=== PATIENT | male | born 1975 | race Caucasian/White ===

== ENCOUNTER 2022-05-14 23:42 | Inpatient (IN) ==
--- NOTE | 2022-05-14 23:59 | Emergency Department Note ---
History of Present Illness General Chief complaint: Confusion Stated complaint: AMS Time Seen by Provider: 05/14/22 23:44 History of Present Illness 47-year-old male presents emergency department reportedly from the [facility] he was there for her schizophrenia and agitation under 302. Prior to that he was transferred from [facility] where he had a cerebral infarction due to a thrombosis of the left middle cerebral artery on April 29. Patient was treated at the time with subcu heparin and was then subsequently transferred to the [facility] after making threats to kill himself and below the hospital. The [facility] has been taking care of this patient for the past 3 days they state they cannot handle and now he has increased agitation they do not understand him at times. There were no other complaints. Reportedly the symptoms worsen 3 hours prior to arrival. Patient is a very poor historian to his current presentation and reportedly he is transitioning from male to female. Home Medications Medication Instructions Recorded Confirmed Type acetaminophen 325 mg tablet 650 mg PO Q4H PRN Pain 05/15/22 05/15/22 History (Tylenol) atorvastatin 20 mg tablet 20 mg PO HS 05/15/22 05/15/22 History diphenhydramine HCl 50 mg capsule 50 mg PO Q6H PRN Itching 05/15/22 05/15/22 History estradiol 0.1 mg/24 hr semiweekly 0.1 mg transdermal 2XWK 05/15/22 05/15/22 History transdermal patch finasteride 1 mg tablet 1 mg PO DAILY 05/15/22 05/15/22 History hydrocortisone 1 % topical cream 1 applic topical TID 05/15/22 05/15/22 History linaclotide 290 mcg capsule 290 mcg PO DAILY 05/15/22 05/15/22 History (Linzess) linaclotide 72 mcg capsule 72 mcg PO DAILY 05/15/22 05/15/22 History (Linzess) mupirocin 2 % topical ointment 1 applic topical BID 05/15/22 05/15/22 History quetiapine 50 mg tablet (Seroquel) 50 mg PO DIRECTED PRN Agitation 05/15/22 05/15/22 History spironolactone 100 mg tablet 300 mg PO HS 05/15/22 05/15/22 History venlafaxine 150 mg 150 mg PO QAM 05/15/22 05/15/22 History capsule,extended release 24 hr (Effexor XR) Allergies Allergy/AdvReac Type Severity Reaction Status Date / Time cat dander Allergy Unknown ON MED LIST Verified 05/15/22 00:46 pollen extracts Allergy Unknown ON MED LIST Verified 05/15/22 00:46 Past Med/Surg History Social History Smoking Status: Unknown if ever smoked Feels Safe at Home: Yes Immunizations: Past medical history includes acute CVA, aphasia, cerebral infarction due to thrombosis of left middle cerebral artery, hyponatremia, schizoaffective disorder, suicidal ideation, long-term estrogen therapy, hypertension, hyperlipidemia; social history unknown whether the patient drinks alcohol, patient is reportedly transitioning from male to female Review of Systems Unobtainable due to cognitive status Physical Exam Vital Signs Vital Signs - 24 hr 05/14/22 23:38 05/14/22 23:55 05/15/22 00:05 Temperature 37.7 C Temperature Source Oral Pulse Rate 91 Pulse Rate from SpO2 Sensor Respiratory Rate 16 Respiratory Effort / Characteristics Non-Labored Non-Labored Respiratory Depth Normal Normal Blood Pressure Blood Pressure Mean Pulse Oximetry 97 98 Oxygen Delivery Method Room Air Sepsis Recent Fever Within 48 Hours No Sepsis New/Unexplained Change in Mental Status No Sepsis Action Taken by Nursing No Action Required 05/14/22 23:50 05/14/22 23:50 05/15/22 00:00 Temperature Temperature Source Pulse Rate 96 H 91 H Pulse Rate from SpO2 Sensor 92 H Respiratory Rate 19 13 Respiratory Effort / Characteristics Respiratory Depth Blood Pressure 158/123 H Blood Pressure Mean 134 Pulse Oximetry 95 Oxygen Delivery Method Sepsis Recent Fever Within 48 Hours Sepsis New/Unexplained Change in Mental Status Sepsis Action Taken by Nursing 05/15/22 00:10 05/15/22 00:29 05/15/22 00:29 Temperature Temperature Source Pulse Rate 93 H 96 H Pulse Rate from SpO2 Sensor 93 H 97 H Respiratory Rate 21 23 Respiratory Effort / Characteristics Respiratory Depth Blood Pressure 168/107 H Blood Pressure Mean 127 Pulse Oximetry 97 99 Oxygen Delivery Method Sepsis Recent Fever Within 48 Hours Sepsis New/Unexplained Change in Mental Status Sepsis Action Taken by Nursing 05/15/22 00:30 05/15/22 00:40 05/15/22 00:50 Temperature Temperature Source Pulse Rate 96 H 91 H 100 H Pulse Rate from SpO2 Sensor 96 H 93 H Respiratory Rate 21 14 15 Respiratory Effort / Characteristics Respiratory Depth Blood Pressure Blood Pressure Mean Pulse Oximetry 98 97 Oxygen Delivery Method Sepsis Recent Fever Within 48 Hours Sepsis New/Unexplained Change in Mental Status Sepsis Action Taken by Nursing 05/15/22 01:00 05/15/22 01:10 05/15/22 01:20 Temperature Temperature Source Pulse Rate 95 H 92 H 88 Pulse Rate from SpO2 Sensor Respiratory Rate 19 15 19 Respiratory Effort / Characteristics Respiratory Depth Blood Pressure Blood Pressure Mean Pulse Oximetry Oxygen Delivery Method Sepsis Recent Fever Within 48 Hours Sepsis New/Unexplained Change in Mental Status Sepsis Action Taken by Nursing 05/15/22 01:30 05/15/22 01:40 05/15/22 01:50 Temperature Temperature Source Pulse Rate 95 H 93 H 90 Pulse Rate from SpO2 Sensor Respiratory Rate 16 20 17 Respiratory Effort / Characteristics Respiratory Depth Blood Pressure Blood Pressure Mean Pulse Oximetry Oxygen Delivery Method Sepsis Recent Fever Within 48 Hours Sepsis New/Unexplained Change in Mental Status Sepsis Action Taken by Nursing 05/15/22 02:00 05/15/22 02:10 05/15/22 02:20 Temperature Temperature Source Pulse Rate 90 90 91 H Pulse Rate from SpO2 Sensor Respiratory Rate 17 17 20 Respiratory Effort / Characteristics Respiratory Depth Blood Pressure Blood Pressure Mean Pulse Oximetry Oxygen Delivery Method Sepsis Recent Fever Within 48 Hours Sepsis New/Unexplained Change in Mental Status Sepsis Action Taken by Nursing 05/15/22 02:30 05/15/22 02:40 05/15/22 02:50 Temperature Temperature Source Pulse Rate 85 88 87 Pulse Rate from SpO2 Sensor Respiratory Rate 14 19 19 Respiratory Effort / Characteristics Respiratory Depth Blood Pressure Blood Pressure Mean Pulse Oximetry Oxygen Delivery Method Sepsis Recent Fever Within 48 Hours Sepsis New/Unexplained Change in Mental Status Sepsis Action Taken by Nursing 05/15/22 03:00 05/15/22 03:10 05/15/22 03:13 Temperature Temperature Source Pulse Rate 88 89 95 H Pulse Rate from SpO2 Sensor Respiratory Rate 15 16 23 Respiratory Effort / Characteristics Respiratory Depth Blood Pressure Blood Pressure Mean Pulse Oximetry Oxygen Delivery Method Sepsis Recent Fever Within 48 Hours Sepsis New/Unexplained Change in Mental Status Sepsis Action Taken by Nursing 05/15/22 03:13 Temperature Temperature Source Pulse Rate Pulse Rate from SpO2 Sensor Respiratory Rate Respiratory Effort / Characteristics Respiratory Depth Blood Pressure 126/93 Blood Pressure Mean 104 Pulse Oximetry Oxygen Delivery Method Sepsis Recent Fever Within 48 Hours Sepsis New/Unexplained Change in Mental Status Sepsis Action Taken by Nursing GENERAL: Patient is awake alert in no acute distress patient is resting comfortably and showing no signs of anxiety EYES: The conjunctivae are clear. The pupils are round and reactive. EARS, NOSE, MOUTH AND THROAT: The nose is without any evidence of any deformity. Mucous membranes are moist. Tongue is midline. NECK: The neck is nontender and supple. RESPIRATORY: Normal respiratory effort is noted there is no evidence of wheezing rhonchi or rales CARDIOVASCULAR: Regular rate and rhythm noted there no murmurs rubs or gallops normal S1 normal S2. GASTROINTESTINAL: The abdomen is soft. Abdomen is nontender. PELVIS: The Pelvis is stable. No tenderness to palpation is noted. BACK: No midline tenderness or or step-off noted range of motion in flexion extension as well as rotation no signs of muscle spasm noted MUSCULOSKELETAL/EXTREMITIES: There is no evidence of gross deformity full range of motion is noted in the hips and shoulders. SKIN: Patient has an erythematous rash on the upper extremities. Patient has ecchymotic rash in the low quadrants of the abdomen. NEUROLOGIC: Patient is awake alert and oriented x2. Patient does have dysarthria and sometimes is difficult to understand and mumbles. PSYCH; patient is calm, cooperative initially on my exam Course Reevaluation(s) Reevaluation #1: Patient remained in stable condition in no distress. Patient does answer questions however does have some expressive aphasia at times and some dysarthria. The case was discussed with the [facility] hospitalist for admission Time: 02:44 Administered Medications Discontinued Medications Diphenhydramine HCl (Diphenhydramine Capsule 25 Mg Cap) 25 mg PO NOW ONE Stop: 05/15/22 01:01 Last Admin: 05/15/22 01:10 Dose: 25 mg Documented By: SPEEDY Spironolactone (Spironolactone 100 Mg Tab) 100 mg PO NOW STA Stop: 05/15/22 02:33 Last Admin: 05/15/22 02:45 Dose: 100 mg Medical Decision Making Medical Records Attestation: I reviewed the patient's medical records. Home Medications Current Medication List: was personally reviewed by me Laboratory Data Attestation: I reviewed the patient's lab results. Result diagrams: 05/14/22 23:53 05/15/22 01:21 Lab Results 05/14/22 05/14/22 05/14/22 Range/Units 23:53 23:53 23:53 WBC 9.58 (4.8-10.8) K/ul RBC 5.31 (4.63-6.08) M/uL Hgb 17.5 (14.0-18.0) g/dl Hct 48.6 (40.1-51.0) % MCV 91.5 (80.0-100.0) fL MCH 33.0 (25.0-34.0) pg MCHC 36.0 (32.0-36.0) g/dL RDW Std Deviation 40.1 (36.4-46.3) fL RDW Coeff of Grazyna 11.9 (11.5-14.5) % Plt Count 218 (130-400) K/uL MPV 11.9 (9.4-12.4) fL Immature Gran % (Auto) 0.6 % Neut % (Auto) 56.9 % Lymph % (Auto) 28.9 % [place] % (Auto) 10.2 % Eos % (Auto) 2.4 % Baso % (Auto) 1.0 % Neut # (Auto) 5.44 (1.4-6.5) K/uL Lymph # (Auto) 2.77 (1.2-3.4) K/uL [place] # (Auto) 0.98 H (0.24-0.82) K/uL Eos # (Auto) 0.23 (0-0.50) K/uL Baso # (Auto) 0.10 (0-0.2) K/uL Immature Gran # (Auto) 0.06 H (0.00-0.02) K/uL PT Cancelled INR Cancelled APTT Cancelled PTT Ratio Cancelled Sodium Cancelled Potassium Cancelled Chloride Cancelled Carbon Dioxide Cancelled Anion Gap Cancelled BUN Cancelled Creatinine Cancelled Est Cr Clr Drug Dosing Cancelled Est GFR ( Amer) Cancelled Est GFR (Non-Af Amer) Cancelled BUN/Creatinine Ratio Cancelled Glucose Cancelled Calcium Cancelled Magnesium Cancelled Total Bilirubin Cancelled AST Cancelled ALT Cancelled Alkaline Phosphatase Cancelled Troponin I High Sens Cancelled Total Protein Cancelled Albumin Cancelled Globulin Cancelled Albumin/Globulin Ratio Cancelled Urine Opiates Screen (Neg) Ur Methadone, Qual (Neg) Urine Barbiturates (Neg) Ur Phencyclidine (PCP) (Neg) U Amphetamin/Meth Scrn (Neg) MDMA (Ecstasy) Screen (Neg) U Benzodiazepines Scrn (Neg) Ur Cocaine Metabolite (Neg) U Marijuana (THC) Screen (Neg) SARS-CoV-2, RNA, NAAT (NEGATIVE) 05/15/22 05/15/22 05/15/22 Range/Units 00:35 01:21 01:21 WBC (4.8-10.8) K/ul RBC (4.63-6.08) M/uL Hgb (14.0-18.0) g/dl Hct (40.1-51.0) % MCV (80.0-100.0) fL MCH (25.0-34.0) pg MCHC (32.0-36.0) g/dL RDW Std Deviation (36.4-46.3) fL RDW Coeff of Grazyna (11.5-14.5) % Plt Count (130-400) K/uL MPV (9.4-12.4) fL Immature Gran % (Auto) % Neut % (Auto) % Lymph % (Auto) % [place] % (Auto) % Eos % (Auto) % Baso % (Auto) % Neut # (Auto) (1.4-6.5) K/uL Lymph # (Auto) (1.2-3.4) K/uL [place] # (Auto) (0.24-0.82) K/uL Eos # (Auto) (0-0.50) K/uL Baso # (Auto) (0-0.2) K/uL Immature Gran # (Auto) (0.00-0.02) K/uL PT Cancelled INR Cancelled APTT Cancelled PTT Ratio Cancelled Sodium 131 L Potassium 3.8 Chloride 98 Carbon Dioxide 24 Anion Gap 9 BUN 14 Creatinine 0.71 Est Cr Clr Drug Dosing Not Reportable Est GFR ( Amer) 131.3 Est GFR (Non-Af Amer) 113.3 BUN/Creatinine Ratio 19.7 Glucose 106 H Calcium 9.3 Magnesium 2.1 Total Bilirubin 1.1 H AST 27 ALT 41 Alkaline Phosphatase 65 Troponin I High Sens 3.8 Total Protein 7.2 Albumin 4.4 Globulin 2.8 Albumin/Globulin Ratio 1.6 Urine Opiates Screen (Neg) Ur Methadone, Qual (Neg) Urine Barbiturates (Neg) Ur Phencyclidine (PCP) (Neg) U Amphetamin/Meth Scrn (Neg) MDMA (Ecstasy) Screen (Neg) U Benzodiazepines Scrn (Neg) Ur Cocaine Metabolite (Neg) U Marijuana (THC) Screen (Neg) SARS-CoV-2, RNA, NAAT NEGATIVE (NEGATIVE) 05/15/22 05/15/22 Range/Units 01:40 02:23 WBC (4.8-10.8) K/ul RBC (4.63-6.08) M/uL Hgb (14.0-18.0) g/dl Hct (40.1-51.0) % MCV (80.0-100.0) fL MCH (25.0-34.0) pg MCHC (32.0-36.0) g/dL RDW Std Deviation (36.4-46.3) fL RDW Coeff of Grazyna (11.5-14.5) % Plt Count (130-400) K/uL MPV (9.4-12.4) fL Immature Gran % (Auto) % Neut % (Auto) % Lymph % (Auto) % [place] % (Auto) % Eos % (Auto) % Baso % (Auto) % Neut # (Auto) (1.4-6.5) K/uL Lymph # (Auto) (1.2-3.4) K/uL [place] # (Auto) (0.24-0.82) K/uL Eos # (Auto) (0-0.50) K/uL Baso # (Auto) (0-0.2) K/uL Immature Gran # (Auto) (0.00-0.02) K/uL PT 11.7 INR 1.1 APTT 28.3 PTT Ratio 1.0 Sodium Potassium Chloride Carbon Dioxide Anion Gap BUN Creatinine Est Cr Clr Drug Dosing Est GFR ( Amer) Est GFR (Non-Af Amer) BUN/Creatinine Ratio Glucose Calcium Magnesium Total Bilirubin AST ALT Alkaline Phosphatase Troponin I High Sens Total Protein Albumin Globulin Albumin/Globulin Ratio Urine Opiates Screen Neg (Neg) Ur Methadone, Qual Neg (Neg) Urine Barbiturates Neg (Neg) Ur Phencyclidine (PCP) Neg (Neg) U Amphetamin/Meth Scrn Neg (Neg) MDMA (Ecstasy) Screen Neg (Neg) U Benzodiazepines Scrn Neg (Neg) Ur Cocaine Metabolite Neg (Neg) U Marijuana (THC) Screen Pos H (Neg) SARS-CoV-2, RNA, NAAT (NEGATIVE) Imaging Data Attestation: I personally reviewed and interpreted this imaging study as follows: My Impression: Chest x-ray interpreted by me negative for infiltrate ECG Data Attestation: I personally reviewed and interpreted this ECG as follows: Additional Comments: EKG interpreted by me normal sinus rhythm rate of 87 normal intervals normal axis no obvious ST segment elevation or depression MDM Narrative Medical decision making differential diagnosis post stroke, aphasia, metabolic derangement, dehydration, worsening aphasia, psychiatric disorder. Plan is to check labs, EKG, CT, review prior records Patient underwent evaluation for strokelike symptoms confusion, agitation. It appears after reading the patient's medical records that all of this seems to be at baseline currently after the patient had a stroke in April. [facility]. Patient is not a tPA candidate or any intervention for an acute stroke at this time Impression & Plan Agitation, Dysarthria, Schizoaffective disorder Discharge Plan Visit Data Chief Complaint: Confusion Stated Complaint: [facility] ED Provider: Alon Chang Discharge Problem: Agitation, Dysarthria, Schizoaffective disorder Patient Disposition: Being Evaluated by Hospitalist Forms Stand Alone Forms: My [facility] Prescriptions Prescriptions: No Action acetaminophen [Tylenol] 325 mg Tablet 650 mg PO Q4H PRN (Reason: Pain) atorvastatin 20 mg Tablet 20 mg PO HS diphenhydramine HCl [Benadryl] 50 mg Capsule 50 mg PO Q6H PRN (Reason: Itching) spironolactone 100 mg Tablet 300 mg PO HS estradiol 0.1 mg/24 hr Patch Semiweekly 0.1 mg transdermal 2XWK Rx Instructions: APPLY ON MONDAY & THURSDAYS. venlafaxine [Effexor XR] 150 mg Capsule,Extended Release 24hr 150 mg PO QAM hydrocortisone 1 % Cream 1 applic TOPICAL TID mupirocin 2 % Ointment 1 applic TOPICAL BID finasteride 1 mg Tablet 1 mg PO DAILY quetiapine [Seroquel] 50 mg Tablet 50 mg PO DIRECTED MDD 4 DOSES PRN (Reason: Agitation) Rx Instructions: EVERY 30 MINUTES FOR AGITATION, MAX 4 DOSES. Linzess 290 mcg Capsule 290 mcg PO DAILY Linzess 72 mcg Capsule 72 mcg PO DAILY Rx Instructions: THIS ORDER WRITTEN "GIVE 390 MCG USE 5.41 OF 72 MCG" DO NOT UNDERSTAND THIS ORDER. Referrals Referrals: PCP,NO [Primary Care Provider] -
[2022-05-15 00:13] LABS: Eosinophils # (auto) 0.23 K/uL (0-0.50); Eosinophils % (auto) 2.4 %; Hematocrit (blood only) 48.6 % (40.1-51.0); Hemoglobin 17.5 g/dl (14.0-18.0); Immature Granulocytes # (auto) 0.06 K/uL (0.00-0.02); Immature Granulocytes % (auto) 0.6 %; Lymphocytes # (auto) 2.77 K/uL (1.2-3.4); Lymphocytes % (auto) 28.9 %; Mean Corpuscular Volume 91.5 fL (80.0-100.0); Mean Platelet Volume 11.9 fL (9.4-12.4); Monocytes # (auto) 0.98 K/uL (0.24-0.82); Monocytes % (auto) 10.2 %; Neutrophils # (auto) 5.44 K/uL (1.4-6.5); Neutrophils % (auto) 56.9 %; Platelet Count 218 K/uL (130-400); RDW Coefficient of Variation 11.9 % (11.5-14.5); RDW Standard Deviation 40.1 fL (36.4-46.3); Red Blood Count 5.31 M/uL (4.63-6.08); White Blood Count 9.58 K/ul (4.8-10.8)
[2022-05-15] MEDS ORDERED: diphenhydrAMINE Capsule 25 MG CAP PO ONE (01:00)
[2022-05-15 02:00] LABS: Troponin I High Sensitivity 3.8 pg/ml (0-20)
[2022-05-15 02:01] LABS: Alanine Aminotransferase 41 U/L (7-52); Albumin Globulin Ratio 1.6 (0.9-2); Albumin Level 4.4 gm/dl (3.4-5.0); Alkaline Phosphatase 65 U/L (34-104); Anion Gap 9 (3-11); Aspartate Aminotransferase 27 U/L (13-39); BUN Creatinine Ratio 19.7 (10-20); Bilirubin,Total 1.1 mg/dl (0.2-1.0); Blood Urea Nitrogen 14 mg/dl (6-23); Calcium 9.3 mg/dl (8.5-10.1); Carbon Dioxide 24 mmol/L (21-32); Chloride 98 mmol/L (98-107); Est GFR (African American) 131.3 ml/min; Est GFR (Non-African American) 113.3 ml/min; Globulin 2.8 gm/dl (2.5-4.0); Glucose 106 mg/dl (70-99(Fasting)); Magnesium 2.1 mg/dl (1.7-2.4); Potassium 3.8 mmol/L (3.5-5.1); Sodium 131 mmol/L (136-145); Total Protein 7.2 gm/dl (6.0-8.3)
[2022-05-15] MEDS ORDERED: SPIRONOLACTONE 100 MG TAB PO STA (02:32)
--- NOTE | 2022-05-15 02:34 | History & Physical Report ---
Date of Service May 15, 2022 Assessment & Plan (1) Encephalopathy: Plan: Secondary to hyponatremia, mild clinical dehydration with note of ketonuria Pruritic rash involving patient's extremities and trunk likely scabies infestation hx recurrent ischemic CVA (04/2022)/hx ICH (03/2022 imaging) hypertension, elevated upon arrival at the ER hyperlipidemia on statin Rx hx HCV unknown status hx schizoaffective disorder/anxiety/mood disorder, unknown status gender dysphoria (male to female transgender person), patient transdermal estrogen resumed at the [facility] history IVDU prediabetes, hemoglobin A1c of 5.8 hemoglobin A1c of 5.8 last April 2022 ongoing tobacco abuse OBS Medical telemetry IVF Hold spironolactone Amlodipine for BP control DC estradiol patch given recent stroke Isolation precautions, Permethrin 1 dose for possible scabies infestation. Return to [facility] once mentation back to baseline Nicotine patch as needed DVT prophylaxis per Lovenox subcu Full code Attempted to contact patient's mother (Ms. Angelia Porter, contact #[phone]) to obtain additional history and to discuss plan of care. No answer. Text document was generated using [employer] voice recognition software. It may contain grammatical or spelling errors. Kindly contact undersigned for clarification of any documentation item in question. History of Present Illness Chief Complaint: Confusion as per records Primary Care Provider: NO PCP History obtained from patient, [facility] facility staff , and records. Medical history significant for recurrent ischemic CVA (04/2022), hx ICH (03/2022 imaging), hypertension, hyperlipidemia, HCV, schizoaffective disorder, anxiety/mood disorder, gender dysphoria (male to female transgender person), history IVDU, VENKATESH, prediabetes, ongoing tobacco abuse. Patient confined at [facility] last April 29, 2022 for left MCA stroke on MRI presenting as dysarthria, receptive and expressive aphasia. Patient had to be intubated to facilitate MRI as per note. Patient signed out AGAINST MEDICAL ADVICE today after admission but subsequently readmitted after being brought back to the ER by law enforcement with 302 petition due to patient suicidality. Neurology recommended aspirin and statin Rx for secondary stroke prevention. Hyper coag work-up and GABY recommended for recurrent stroke work-up. Patient's transdermal estrogen to be discontinued temporarily as per recommendations. Amlodipine added to patient's spironolactone later on for BP control. Patient with periods of aggression and agitation during confinement. Patient unable to hold rational conversation as per documentation. Patient subsequently cleared for transfer to psychiatric facility. Patient not on suicidal precautions as a voluntary admission (201) upon admission at the local [facility] last May 10, 2022. Patient noted to have a pruritic rash on both elbows on admission as per staff account. Patient started on topical steroids. Yesterday, patient noted by staff to be more confused than usual. Patient unable to answer questions regarding chest pain, shortness of breath, headache, abdominal pain symptoms. Patient sent to ER for evaluation. Medical History as above Surgical History : Could not be obtained Family History : Stroke Personal/Social history : 1/4 pack daily, Occasional EtOH intake Allergies Allergy/AdvReac Type Severity Reaction Status Date / Time cat dander Allergy Unknown ON MED LIST Verified 05/15/22 00:46 pollen extracts Allergy Unknown ON MED LIST Verified 05/15/22 00:46 Home Medications Medication Instructions Recorded Confirmed Type acetaminophen 325 mg tablet 650 mg PO Q4H PRN Pain 05/15/22 05/15/22 History (Tylenol) atorvastatin 20 mg tablet 20 mg PO HS 05/15/22 05/15/22 History diphenhydramine HCl 50 mg capsule 50 mg PO Q6H PRN Itching 05/15/22 05/15/22 History estradiol 0.1 mg/24 hr semiweekly 0.1 mg transdermal 2XWK 05/15/22 05/15/22 History transdermal patch finasteride 1 mg tablet 1 mg PO DAILY 05/15/22 05/15/22 History hydrocortisone 1 % topical cream 1 applic topical TID 05/15/22 05/15/22 History linaclotide 290 mcg capsule 290 mcg PO DAILY 05/15/22 05/15/22 History (Linzess) linaclotide 72 mcg capsule 72 mcg PO DAILY 05/15/22 05/15/22 History (Linzess) mupirocin 2 % topical ointment 1 applic topical BID 05/15/22 05/15/22 History quetiapine 50 mg tablet (Seroquel) 50 mg PO DIRECTED PRN Agitation 05/15/22 05/15/22 History spironolactone 100 mg tablet 300 mg PO HS 05/15/22 05/15/22 History venlafaxine 150 mg 150 mg PO QAM 05/15/22 05/15/22 History capsule,extended release 24 hr (Effexor XR) Past Med/Surg History Social History Smoking Status: Unknown if ever smoked Preferred Language: Belarusian Communication Ability: Impaired Communication Ability Comment: Expressive aphasia [place] Required: No Current Living Situation Comment: Unable to obtain- AMS Feels Safe at Home: Yes Safety Concerns: Feels Safe At This Time Gender Identity: Female Assistive Devices: None Review of Systems Review of Systems: Could not be reliably obtained secondary to disorientation Physical Exam Physical Exam: GENERAL: Comfortable, disoriented, babbling, aphasic, obese, no respiratory distress SKIN: Erythematous rash, excoriations over extremities, normal color, warm HEENT: [place] palpebral conjunctivae, no ptosis, dry buccal mucosa NECK : Supple, short neck, no tenderness CHEST : CTA, no tenderness HEART : RRR, no obvious murmurs ABDOMEN: Some distention, nontender EXTREMITIES : Minimal LE swelling, no LE tenderness, no other conspicuous deformities noted NEUROLOGIC : Incoherent, disoriented, no facial asymmetry, gait and stance not assessed Results & Data Results & Data ([facility]) Vital Signs (Past 12 Hours) Vital Signs Temp Pulse Resp BP Pulse Ox O2 Del Method 05/15/22 02:10 90 17 05/15/22 02:00 90 17 05/15/22 01:50 90 17 05/15/22 01:40 93 H 20 05/15/22 01:30 95 H 16 05/15/22 01:20 88 19 05/15/22 01:10 92 H 15 05/15/22 01:00 95 H 19 05/15/22 00:50 100 H 15 05/15/22 00:40 91 H 14 97 05/15/22 00:30 96 H 21 98 05/15/22 00:29 96 H 23 99 05/15/22 00:29 168/107 H 05/15/22 00:10 93 H 21 97 05/15/22 00:00 91 H 13 95 05/14/22 23:50 96 H 19 05/14/22 23:50 158/123 H 05/15/22 00:05 98 Room Air 05/14/22 23:38 37.7 C 91 16 97 Laboratory Results Laboratory Results WBC 9.58 K/ul (4.8-10.8) 05/14/22 23:53 RBC 5.31 M/uL (4.63-6.08) 05/14/22 23:53 Hgb 17.5 g/dl (14.0-18.0) 05/14/22 23:53 Hct 48.6 % (40.1-51.0) 05/14/22 23:53 MCV 91.5 fL (80.0-100.0) 05/14/22 23:53 MCH 33.0 pg (25.0-34.0) 05/14/22 23:53 MCHC 36.0 g/dL (32.0-36.0) 05/14/22 23:53 RDW Std Deviation 40.1 fL (36.4-46.3) 05/14/22 23:53 RDW Coeff of Grazyna 11.9 % (11.5-14.5) 05/14/22 23:53 Plt Count 218 K/uL (130-400) 05/14/22 23:53 MPV 11.9 fL (9.4-12.4) 05/14/22 23:53 Immature Gran % (Auto) 0.6 % 05/14/22 23:53 Neut % (Auto) 56.9 % 05/14/22 23:53 Lymph % (Auto) 28.9 % 05/14/22 23:53 [place] % (Auto) 10.2 % 05/14/22 23:53 Eos % (Auto) 2.4 % 05/14/22 23:53 Baso % (Auto) 1.0 % 05/14/22 23:53 Neut # (Auto) 5.44 K/uL (1.4-6.5) 05/14/22 23:53 Lymph # (Auto) 2.77 K/uL (1.2-3.4) 05/14/22 23:53 Florence # (Auto) 0.98 K/uL (0.24-0.82) H 05/14/22 23:53 Eos # (Auto) 0.23 K/uL (0-0.50) 05/14/22 23:53 Baso # (Auto) 0.10 K/uL (0-0.2) 05/14/22 23:53 Immature Gran # (Auto) 0.06 K/uL (0.00-0.02) H 05/14/22 23:53 PT Cancelled 05/15/22 01:21 INR Cancelled 05/15/22 01:21 APTT Cancelled 05/15/22 01:21 PTT Ratio Cancelled 05/15/22 01:21 Sodium 131 mmol/L (136-145) L 05/15/22 01:21 Potassium 3.8 mmol/L (3.5-5.1) 05/15/22 01:21 Chloride 98 mmol/L (98-107) 05/15/22 01:21 Carbon Dioxide 24 mmol/L (21-32) 05/15/22 01:21 Anion Gap 9 (3-11) 05/15/22 01:21 BUN 14 mg/dl (6-23) 05/15/22 01:21 Creatinine 0.71 mg/dl (0.6-1.4) 05/15/22 01:21 Est Cr Clr Drug Dosing Not Reportable 05/15/22 01:21 Est GFR ( Amer) 131.3 ml/min 05/15/22 01:21 Est GFR (Non-Af Amer) 113.3 ml/min 05/15/22 01:21 BUN/Creatinine Ratio 19.7 (10-20) 05/15/22 01:21 Glucose 106 mg/dl (70-99(Fasting)) H 05/15/22 01:21 Calcium 9.3 mg/dl (8.5-10.1) 05/15/22 01:21 Magnesium 2.1 mg/dl (1.7-2.4) 05/15/22 01:21 Total Bilirubin 1.1 mg/dl (0.2-1.0) H 05/15/22 01:21 AST 27 U/L (13-39) 05/15/22 01:21 ALT 41 U/L (7-52) 05/15/22 01:21 Alkaline Phosphatase 65 U/L (34-104) 05/15/22 01:21 Troponin I High Sens 3.8 pg/ml (0-20) 05/15/22 01:21 Total Protein 7.2 gm/dl (6.0-8.3) 05/15/22 01:21 Albumin 4.4 gm/dl (3.4-5.0) 05/15/22 01:21 Globulin 2.8 gm/dl (2.5-4.0) 05/15/22 01:21 Albumin/Globulin Ratio 1.6 (0.9-2) 05/15/22 01:21 SARS-CoV-2, RNA, NAAT NEGATIVE (NEGATIVE) 05/15/22 00:[address] head initial read: Distant prior infarct noted left posterior temporal occipital region No ICH, mass effect or edema. No evidence of acute cortical stroke. Visualized sinuses and mastoid air cells are clear Chest x-ray as per my interpretation atelectasis EKG as per my interpretation : Rate 85, NSR, normal axis, no ischemia
[2022-05-15] MEDS ORDERED: SODIUM CHLORIDE 0.9% 1000ML 1,000 ML IV ONE (03:07)
[2022-05-15 03:08] LABS: INR 1.1 (0.9-1.1); Partial Thromboplastin Time 28.3 Seconds (21.0-31.0); Prothrombin Time 11.7 Seconds (9.0-12.0)
[2022-05-15 03:13] LABS: Amphetamines+Metham, Urine Neg (Neg); Barbiturates, Urine Neg (Neg); Benzodiazepine, Urine Neg (Neg); Cocaine, Urine Neg (Neg); MDMA (Ecstacy), Urine Neg (Neg); Methadone, Urine Neg (Neg); Opiate, Urine Neg (Neg); Phencyclidine, Urine Neg (Neg)
[2022-05-15] MEDS ORDERED: LORATADINE 10 MG TAB PO ONE (03:57)
[2022-05-15 04:23] LABS: Appearance Urine Clear (Clear); Bilirubin Urine Negative (Negative); Blood Urine Negative (Negative); Color Urine Dark Yellow; Glucose Urine UA Negative (Negative); Ketones Urine 1+ (Negative); Leukocyte Esterase Urine Negative (Negative); Nitrite Urine Negative (Negative); Protein Urine Negative (Negative); Specific Gravity Urine 1.022 (1.000-1.030); Urobilinogen Urine Negative (Negative); pH Urine 5.5 (4.5-7.5)
[2022-05-15] MEDS ORDERED: PROMETHAZINE HCL 12.5 MG in SODIUM CHLORIDE 0.9% 50 ML IV PRN (05:49)
--- NOTE | 2022-05-15 06:37 | XRay Report ---
XR chest 1V portable CLINICAL HISTORY: hyponatremia. COMPARISON STUDY: No previous studies for comparison. FINDINGS: Patient is mildly rotated. This likely accounts for slight asymmetric right lung opacity. L blank volumes are normal. Lungs are clear. No pulmonary nodules are noted although sensitivity is dimin ished given radiographic technique. There is no pneumothorax or pleural effusion. Cardiac size is nor mal. Mediastinal contours are normal. There is no evidence for pulmonary edema. IMPRESSION: No acute cardiopulmonary findings. ACT 112: Negative or not required by law. Electronically signed by: Jamie Jc M.D. 05/15/2022 6:36 AM
--- NOTE | 2022-05-15 06:51 | CT Scan Report ---
CT head/brain wo con CLINICAL HISTORY: 47 years-old Male with Stroke Like Symptoms. Acute strokelike symptoms TECHNIQUE: Multiple axial CT images of the head were obtained without contrast. A dose lowering tech nique was utilized adhering to the principles of ALARA. CT DOSE: 1400.53 mGy.cm COMPARISON: None. FINDINGS: No acute intracranial hemorrhage, midline shift, intracranial mass, hydrocephalus, or abnormal extra- axial collection.4.4 cm area of decreased encephalomalacia noted within the left occipital lobe. Ill- defined area of decreased attenuation with blurring the simpson-white interface is noted within the left temporal parietal lobe measuring up to approximately 3 cm. The calvarium is intact. The paranasal s inuses, mastoid air cells, and middle ear cavities are clear. IMPRESSION: 1. Acute infarct of the left temporal parietal lobe. 2. Chronic left occipital infarct. 3. No acute intracranial hemorrhage or midline shift. ACT 112: Negative or not required by law. The above report was generated using voice recognition software. It may contain grammatical, syntax o r spelling errors. Electronically signed by: Eduin Bates M.D. 05/15/2022 6:49 AM
[2022-05-15] MEDS ORDERED: VENLAFAXINE HCL XR 150 MG CAPXR PO SCH (09:00)
[2022-05-15 09:22] LABS: Calcium 9.1 mg/dl (8.5-10.1); Creatinine Clr Calc Pharmacy 151.3 ml/min; Est GFR (Non-African American) 107.9 ml/min; Potassium 4.1 mmol/L (3.5-5.1)
[2022-05-15] MEDS: amLODIPine BESYLATE 5 MG TAB PO SCH (09:48)
[2022-05-15] MEDS: ASPIRIN 81 MG ECTAB PO SCH (09:48)
[2022-05-15] MEDS: ENOXAPARIN INJ 40 MG/0.4 ML SYR SQ SCH (09:48)
[2022-05-15] MEDS: MUPIROCIN 2% OINT 22 GM TUBE TOP SCH ×2 (09:49→20:02)
[2022-05-15] MEDS: LINACLOTIDE 145 MCG CAPSULE PO SCH (09:49)
[2022-05-15] MEDS: HYDROCORTISONE 1% CRM 30 GM TUBE EXT SCH ×3 (09:49→20:02)
[2022-05-15] MEDS: OLANZapine 10 MG/2.1 ML SDV IM PRN ×2 (09:50→20:01)
--- NOTE | 2022-05-15 12:55 | Communication Note ---
Date of Service: May 15, 2022 patient was sleeping soundly when attempted to see earlier this am. consult received and chart reviewed. Liaison has reached out to [facility] to confirm me dications on admission vs. current as admitted for 3 days. Currently Effexor XR is being held. I would continue to hold given BP and unclear if new and could have contributed to agitation, particularly post stroke. would avoid standing Seroquel until sodium corrects/clarify indication Zyprexa 5 mg IM prn agitatio is currently ordered by hospitalist. possible that scabies contributing to agitation and patient had difficulty expressing self due to aphasia post 04/29 L MCA stroke? Patient had been hospitalized in [facility] since 04/29 so would be late for withdrawal. PDMP reveals hx of some scripts at [facility] in [facility]. patient is unable to leave hospital AMA, 1 -on -1 per hospital protocol as reportedly [address] [facility] for SI and not in a low ligature risk environment.
--- NOTE | 2022-05-15 16:40 | Hospitalist Progress Note ---
Date of Service May 15, 2022 Assessment & Plan (1) Encephalopathy: Plan: Recent acute CVA, left MCA Recurrent stroke hx schizoaffective disorder/anxiety/mood disorder, unknown status Patient brought into the ER for worsening confusion at the [facility] CT head: 1. Acute infarct of the left temporal parietal lobe. 2. Chronic left occipital infarct. 3. No acute intracranial hemorrhage or midline shift. Urine drug screen: Positive marijuana-patient's mother reports patient received marijuana from their neighbor prior to being admitted to the [facility] Today, patient is calm and cooperative Has expressive aphasia, but follows all commands, able to perform tasks independently Neurologist consulted Continue aspirin, atorvastatin Blood pressure control with amlodipine Psychiatrist also consulted One-to-one observation while admitted Hold Effexor As needed Zyprexa Mild hyponatremia Continue gentle IV fluids Pruritic rash involving patient's extremities and trunk likely scabies infestation --Continue permethrin hypertension, elevated upon arrival at the ER --Continue amlodipine hyperlipidemia on statin Rx hx HCV unknown status 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 --May need to be held secondary to recent stroke history IVDU prediabetes, hemoglobin A1c of 5.8 hemoglobin A1c of 5.8 last April 2022 ongoing tobacco abuse Return to [facility] once mentation back to baseline Nicotine patch as needed DVT prophylaxis per Lovenox subcu Full code plan of care discussed with patient and her mother Angelia in detail and at length all questions answered They are understanding, agreeable, comfortable with the plan of care Admission and Anticipated Discharge Date Admission Date: May 15, 2022 Subjective Follow-up for confusion, etc. Seen resting in bed, awake and alert Tries to speak but has significant dysarthria, expressive aphasia I can only understand some of her words Can state her name Unable to state his birthday Denies headache, chest pain, shortness of breath Expresses that she wants to call her mother Assisted with the phone, patient was able to dial the number by herself, was able to talk to her mother Requested that I talk to her mother Spoke with patient's mother Angelia at length and in detail All concerns addressed Patient's mother is concerned, patient would like to go home, explained to patient that she still needs to return to the [facility] for further treat Review of Systems Review of Systems: all noted and negative except for above Physical Exam Physical Exam: General- oriented x 2, not in distress, speaks in sentences with no effort or accessory muscle use Positive expressive aphasia, dysarthria Head- atraumatic Eyes- PERRL, EOMI, anicteric ENT- oropharynx clear Neck- supple, no JVD, no adenopathy, no thyromegaly; carotids +2/2, no bruits appreciated Lungs- clear to auscultation bilaterally, no rales/wheezes Heart- normal rate, regular rhythm; no murmur, no gallop, no rub appreciated Abdomen- normal bowel sounds, nondistended, soft, nontender, no masses or hepatosplenomegaly Extremities- no pretibial edema, no calf tenderness; peripheral pulses intact Neuro- alert, oriented x 2; CN 2-12 grossly intact except for significant dysarthria, expressive aphasia; motor 5/5 bilaterally;sensation 100% on all extremities; no other gross focal neurologic deficits Skin- warm & dry Results & Data Results & Data ([facility]) Vital Signs (Past 12 Hours) Vital Signs Temp Pulse Pulse Resp BP BP Pulse Ox 05/15/22 08:00 90 05/15/22 08:08 36.5 C 112 H 18 159/103 H 97 05/15/22 06:27 97 H 05/15/22 06:20 90 18 126/76 98 05/15/22 05:49 36.5 C 102 H 18 135/110 H 98 O2 Del Method 05/15/22 08:00 05/15/22 08:08 Room Air 05/15/22 06:27 05/15/22 06:20 Room Air 05/15/22 05:49 Room Air all noted and reviewed including below
[2022-05-15] MEDS ORDERED: PERMETHRIN 5% CR 60 GM TUBE EXT ONE (20:00)
[2022-05-15] MEDS: ATORVASTATIN 20 MG TAB PO SCH (20:45)
[2022-05-15] MEDS ORDERED: ATORVASTATIN 40 MG TAB PO SCH (21:00)
[2022-05-15] MEDS: HALOPERIDOL LACTATE 5 MG/ML 1 ML VIAL IM STA ×2 (21:38→22:18)
--- NOTE | 2022-05-15 22:37 | Neurology Consultation ---
Date of Consultation May 15, 2022 Assessment & Plan (1) Encephalopathy: Impression: The patient was initially transferred to the emergency department for altered mental status. Laboratory work-up showed hyponatremia. Patient's mental status has been improved since admission. (2) History of multiple strokes: Impression: The patient was recently hospitalized for recurrent, left MCA territory ischemic strokes. He has multiple stroke risk factors including hyperlipidemia, hypertension, estrogen usage, and smoking. Plan: We will keep the patient on aspirin 81 mg daily and Lipitor 20 mg at bedtime for secondary stroke prevention. We should obtain recent stroke work-up from [facility]. Brain MRI. If the patient cannot tolerate MRI, then we will repeat head CT. Transesophageal echocardiogram. Telemetry monitoring. The patient will need long-term cardiac rhythm monitoring to investigate for paroxysmal atrial fibrillation. Hypercoagulable state work-up. Estrogen replacement therapy will increase the risk of ischemic cerebrovascula r accident and should be stopped. Cessation of smoking is strongly recommended. If he cannot obtain medical documents from [place], then we will proceed with CT angiography head and neck. DVT prophylaxis. Lipid panel. We will follow the patient is with you. (3) Abnormal head CT: Impression: Recent head CT showed abnormalities, suggestive of old left temporal lobe acute ischemic stroke. Plan/recommendations: As seen above. (4) Agitation: Impression: The patient has Schizoaffective disorder and since having recent stroke, he has been more agitated. Recommendations: Psychiatry consultation. (5) Aphasia as late effect of cerebrovascular accident: Impression: The patient was hospitalized at [facility], for recurrent strokes, involving left middle cerebral artery territory. Recommendations: We should obtain medical documents from [place] regarding recent stroke work-up. (6) Schizoaffective disorder: Plan Thank you for the consultation. History of Present Illness Reason for Consultation: CVA, AMS Requesting Physician: Mor Faust MD Attending Physician: Mor Faust MD History of Present Illness The patient is a 47-year-old who was brought to emergency department from [facility], because of increased agitation and possible confusion. In emergency department, laboratory work-up revealed hyponatremia. Her blood pressure was also elevated. Head CT showed old left occipital/parietal ischemic stroke but also changes of left temporal lobe, which was suggestive of acute cerebrovascular accident. According to chart, the patient was hospitalized at [facility] in April 2022, because of recurrent ischemic strokes, primarily involving left middle cerebral artery territory. After the work-up, the patient was discharged to [facility] recently. He has been on aspirin and Lipitor for secondary stroke prevention. The patient has gender dysphoria on estrogen supplement, hypertension, hyperlipidemia, and schizoaffective disorder.He has been smoker. Based on recurrent stroke, estrogen treatment was stopped on admission. The patient signed out AGAINST MEDICAL ADVICE initially, but subsequently, readmitted after being brought back to emergency department by law enforcement with 302 petition due to patient's suicidality. The patient has a residual expressive and comprehensive aphasia since having left MCA territory stroke in April 2022. On this admission, there was no additional neurological deficit, however, head CT showed above- mentioned acute changes. I do not have access to medical documents from recent hospitalization at [place]. The patient's mental status is back to her baseline. I have reviewed the patient's chart including imaging studies and visualized them personally. I have discussed the case with nursing staff. Allergies Allergy/AdvReac Type Severity Reaction Status Date / Time cat dander Allergy Unknown ON MED LIST Verified 05/15/22 00:46 pollen extracts Allergy Unknown ON MED LIST Verified 05/15/22 00:46 Home Medications Medication Instructions Recorded Confirmed Type acetaminophen 325 mg tablet 650 mg PO Q4H PRN Pain 05/15/22 05/15/22 History (Tylenol) atorvastatin 20 mg tablet 20 mg PO HS 05/15/22 05/15/22 History diphenhydramine HCl 50 mg capsule 50 mg PO Q6H PRN Itching 05/15/22 05/15/22 History estradiol 0.1 mg/24 hr semiweekly 0.1 mg transdermal 2XWK 05/15/22 05/15/22 History transdermal patch finasteride 1 mg tablet 1 mg PO DAILY 05/15/22 05/15/22 History hydrocortisone 1 % topical cream 1 applic topical TID 05/15/22 05/15/22 History linaclotide 290 mcg capsule 290 mcg PO DAILY 05/15/22 05/15/22 History (Linzess) linaclotide 72 mcg capsule 72 mcg PO DAILY 05/15/22 05/15/22 History (Linzess) mupirocin 2 % topical ointment 1 applic topical BID 05/15/22 05/15/22 History quetiapine 50 mg tablet (Seroquel) 50 mg PO DIRECTED PRN Agitation 05/15/22 05/15/22 History spironolactone 100 mg tablet 300 mg PO HS 05/15/22 05/15/22 History venlafaxine 150 mg 150 mg PO QAM 05/15/22 05/15/22 History capsule,extended release 24 hr (Effexor XR) Patient History Social History Smoking Status: Unknown if ever smoked Preferred Language: Uzbek Communication Ability: Impaired Communication Ability Comment: Expressive aphasia Pharmacy Clinical Coordinator Required: No marital status: Single Current Living Situation Comment: Unable to obtain- AMS Feels Safe at Home: Yes Safety Concerns: Feels Safe At This Time Gender Identity: Female Assistive Devices: None Review of Systems Review of Systems: Unobtainable due to cognitive status Physical Exam Physical Exam: General Examination: Constitutional: Well developed person in some distress due to inability to use home medications. HENT: Normal exam with inspection. CV: Hearth rhythm is regular. Neck: Supple, no carotid bruits. Lungs: Non-labored and comfortable breathing. Abdomen: Soft, non-tender, non-distended. Skin: Scabies related skin lesions. Extremities: No edema or cyanosis NEUROLOGICAL EXAMINATION: Mental Status: Alert oriented to his name. Limited exam due to aphasia. Cranial Nerves: II-XII are intact. No nystagmus. Funduscopy: Unable to visualize. Motor: 5/5 in all extremities without asymmetry. Tone: Normal without spasticity or rigidity. Sensory: Intact grossly Coordination: No dysmetria with FTN testing. Speech: Mixed type aphasia. Word salad. Gait: Unable to assess DTRs: 2+ all. No babinski. Musculoskeletal: Normal muscle bulk, no atrophy. Results & Data ([facility]) Vital Signs (Past 12 Hours) Vital Signs Temp Pulse Resp BP Pulse Ox O2 Del Method 05/15/22 19:04 36.8 C 98 H 18 134/95 96 Room Air Laboratory Results Laboratory Results - last 24 hr 05/14/22 05/14/22 05/14/22 23:53 23:53 23:53 WBC 9.58 RBC 5.31 Hgb 17.5 Hct 48.6 MCV 91.5 MCH 33.0 MCHC 36.0 RDW Std Deviation 40.1 RDW Coeff of [place]raz[place] 11.9 Plt Count 218 MPV 11.9 Immature Gran % (Auto) 0.6 Neut % (Auto) 56.9 Lymph % (Auto) 28.9 [place] % (Auto) 10.2 Eos % (Auto) 2.4 Baso % (Auto) 1.0 Neut # (Auto) 5.44 Lymph # (Auto) 2.77 [place] # (Auto) 0.98 H Eos # (Auto) 0.23 Baso # (Auto) 0.10 Immature Gran # (Auto) 0.06 H PT Cancelled INR Cancelled APTT Cancelled PTT Ratio Cancelled Sodium Cancelled Potassium Cancelled Chloride Cancelled Carbon Dioxide Cancelled Anion Gap Cancelled BUN Cancelled Creatinine Cancelled Est Cr Clr Drug Dosing Cancelled Est GFR ( Amer) Cancelled Est GFR (Non-Af Amer) Cancelled BUN/Creatinine Ratio Cancelled Glucose Cancelled Calcium Cancelled Magnesium Cancelled Total Bilirubin Cancelled AST Cancelled ALT Cancelled Alkaline Phosphatase Cancelled Ammonia Troponin I High Sens Cancelled Total Protein Cancelled Albumin Cancelled Globulin Cancelled Albumin/Globulin Ratio Cancelled TSH Urine Color Urine Appearance Urine pH Ur Specific [place] Urine Protein Urine Glucose (UA) Urine Ketones Urine Blood Urine Nitrite Urine Bilirubin Urine Urobilinogen Ur Leukocyte Esterase Urine Opiates Screen Ur Methadone, Qual Urine Barbiturates Ur Phencyclidine (PCP) U Amphetamin/Meth Scrn MDMA (Ecstasy) Screen U Benzodiazepines Scrn Ur Cocaine Metabolite U Marijuana (THC) Screen U Marijuana THC Carboxy Drug Screen Comment SARS-CoV-2, RNA, NAAT 05/15/22 05/15/22 05/15/22 00:35 01:21 01:21 WBC RBC Hgb Hct MCV MCH MCHC RDW Std Deviation RDW Coeff of Grazyna Plt Count MPV Immature Gran % (Auto) Neut % (Auto) Lymph % (Auto) [place] % (Auto) Eos % (Auto) Baso % (Auto) Neut # (Auto) Lymph # (Auto) [place] # (Auto) Eos # (Auto) Baso # (Auto) Immature Gran # (Auto) PT Cancelled INR Cancelled APTT Cancelled PTT Ratio Cancelled Sodium 131 L Potassium 3.8 Chloride 98 Carbon Dioxide 24 Anion Gap 9 BUN 14 Creatinine 0.71 Est Cr Clr Drug Dosing Not Reportable Est GFR ( Amer) 131.3 Est GFR (Non-Af Amer) 113.3 BUN/Creatinine Ratio 19.7 Glucose 106 H Calcium 9.3 Magnesium 2.1 Total Bilirubin 1.1 H AST 27 ALT 41 Alkaline Phosphatase 65 Ammonia Troponin I High Sens 3.8 Total Protein 7.2 Albumin 4.4 Globulin 2.8 Albumin/Globulin Ratio 1.6 TSH Urine Color Urine Appearance Urine pH Ur Specific [place] Urine Protein Urine Glucose (UA) Urine Ketones Urine Blood Urine Nitrite Urine Bilirubin Urine Urobilinogen Ur Leukocyte Esterase Urine Opiates Screen Ur Methadone, Qual Urine Barbiturates Ur Phencyclidine (PCP) U Amphetamin/Meth Scrn MDMA (Ecstasy) Screen U Benzodiazepines Scrn Ur Cocaine Metabolite U Marijuana (THC) Screen U Marijuana THC Carboxy Drug Screen Comment SARS-CoV-2, RNA, NAAT NEGATIVE 05/15/22 05/15/22 05/15/22 01:40 01:40 02:23 WBC RBC Hgb Hct MCV MCH MCHC RDW Std Deviation RDW Coeff of Grazyna Plt Count MPV Immature Gran % (Auto) Neut % (Auto) Lymph % (Auto) [place] % (Auto) Eos % (Auto) Baso % (Auto) Neut # (Auto) Lymph # (Auto) [place] # (Auto) Eos # (Auto) Baso # (Auto) Immature Gran # (Auto) PT 11.7 INR 1.1 APTT 28.3 PTT Ratio 1.0 Sodium Potassium Chloride Carbon Dioxide Anion Gap BUN Creatinine Est Cr Clr Drug Dosing Est GFR ( Amer) Est GFR (Non-Af Amer) BUN/Creatinine Ratio Glucose Calcium Magnesium Total Bilirubin AST ALT Alkaline Phosphatase Ammonia Troponin I High Sens Total Protein Albumin Globulin Albumin/Globulin Ratio TSH Urine Color Urine Appearance Urine pH Ur Specific [place] Urine Protein Urine Glucose (UA) Urine Ketones Urine Blood Urine Nitrite Urine Bilirubin Urine Urobilinogen Ur Leukocyte Esterase Urine Opiates Screen Neg Ur Methadone, Qual Neg Urine Barbiturates Neg Ur Phencyclidine (PCP) Neg U Amphetamin/Meth Scrn Neg MDMA (Ecstasy) Screen Neg U Benzodiazepines Scrn Neg Ur Cocaine Metabolite Neg U Marijuana (THC) Screen Pos H U Marijuana THC Carboxy Pending Drug Screen Comment Pending SARS-CoV-2, RNA, NAAT 05/15/22 05/15/22 05/15/22 04:02 04:02 08:30 WBC RBC Hgb Hct MCV MCH MCHC RDW Std Deviation RDW Coeff of Grazyna Plt Count MPV Immature Gran % (Auto) Neut % (Auto) Lymph % (Auto) [place] % (Auto) Eos % (Auto) Baso % (Auto) Neut # (Auto) Lymph # (Auto) [place] # (Auto) Eos # (Auto) Baso # (Auto) Immature Gran # (Auto) PT INR APTT PTT Ratio Sodium 130 L Potassium 4.1 Chloride 101 Carbon Dioxide 22 Anion Gap 7 BUN 12 Creatinine 0.80 Est Cr Clr Drug Dosing 151.3 Est GFR ( Amer) 125.0 Est GFR (Non-Af Amer) 107.9 BUN/Creatinine Ratio 15.0 Glucose 111 H Calcium 9.1 Magnesium Total Bilirubin AST ALT Alkaline Phosphatase Ammonia 26.0 Troponin I High Sens Total Protein Albumin Globulin Albumin/Globulin Ratio TSH 0.858 Urine Color Urine Appearance Urine pH Ur Specific [place] Urine Protein Urine Glucose (UA) Urine Ketones Urine Blood Urine Nitrite Urine Bilirubin Urine Urobilinogen Ur Leukocyte Esterase Urine Opiates Screen Ur Methadone, Qual Urine Barbiturates Ur Phencyclidine (PCP) U Amphetamin/Meth Scrn MDMA (Ecstasy) Screen U Benzodiazepines Scrn Ur Cocaine Metabolite U Marijuana (THC) Screen U Marijuana THC Carboxy Drug Screen Comment SARS-CoV-2, RNA, NAAT 05/15/22 Unknown WBC RBC Hgb Hct MCV MCH MCHC RDW Std Deviation RDW Coeff of Grazyna Plt Count MPV Immature Gran % (Auto) Neut % (Auto) Lymph % (Auto) [place] % (Auto) Eos % (Auto) Baso % (Auto) Neut # (Auto) Lymph # (Auto) [place] # (Auto) Eos # (Auto) Baso # (Auto) Immature Gran # (Auto) PT INR APTT PTT Ratio Sodium Potassium Chloride Carbon Dioxide Anion Gap BUN Creatinine Est Cr Clr Drug Dosing Est GFR ( Amer) Est GFR (Non-Af Amer) BUN/Creatinine Ratio Glucose Calcium Magnesium Total Bilirubin AST ALT Alkaline Phosphatase Ammonia Troponin I High Sens Total Protein Albumin Globulin Albumin/Globulin Ratio TSH Urine Color Dark Yellow Urine Appearance Clear Urine pH 5.5 Ur Specific [place] 1.022 Urine Protein Negative Urine Glucose (UA) Negative Urine Ketones 1+ H Urine Blood Negative Urine Nitrite Negative Urine Bilirubin Negative Urine Urobilinogen Negative Ur Leukocyte Esterase Negative Urine Opiates Screen Ur Methadone, Qual Urine Barbiturates Ur Phencyclidine (PCP) U Amphetamin/Meth Scrn MDMA (Ecstasy) Screen U Benzodiazepines Scrn Ur Cocaine Metabolite U Marijuana (THC) Screen U Marijuana THC Carboxy Drug Screen Comment SARS-CoV-2, RNA, NAAT Diagnostic Findings Head CT 05/14/22 23:54 CT head/brain wo con CLINICAL HISTORY: 47 years-old Male with Stroke Like Symptoms. Acute strokelike symptoms TECHNIQUE: Multiple axial CT images of the head were obtained without contrast. A dose lowering technique was utilized adhering to the principles of ALARA. CT DOSE: 1400.53 mGy.cm COMPARISON: None. FINDINGS: No acute intracranial hemorrhage, midline shift, intracranial mass, hydrocephalus, or abnormal extra-axial collection.4.4 cm area of decreased encephalomalacia noted within the left occipital lobe. Ill-defined area of decreased attenuation with blurring the simpson-white interface is noted within the left temporal parietal lobe measuring up to approximately 3 cm. The calvarium is intact. The paranasal sinuses, mastoid air cells, and middle ear cavities are clear. IMPRESSION: 1. Acute infarct of the left temporal parietal lobe. 2. Chronic left occipital infarct. 3. No acute intracranial hemorrhage or midline shift. ACT 112: Negative or not required by law. The above report was generated using voice recognition software. It may contain grammatical, syntax or spelling errors. Electronically signed by: Eduin Bates M.D. 05/15/2022 6:49 AM Chest X-Ray 05/15/22 02:27 XR chest 1V portable CLINICAL HISTORY: hyponatremia. COMPARISON STUDY: No previous studies for comparison. FINDINGS: Patient is mildly rotated. This likely accounts for slight asymmetric right lung opacity. Lung volumes are normal. Lungs are clear. No pulmonary nodules are noted although sensitivity is diminished given radiographic technique. There is no pneumothorax or pleural effusion. Cardiac size is normal. Mediastinal contours are normal. There is no evidence for pulmonary edema. IMPRESSION: No acute cardiopulmonary findings. ACT 112: Negative or not required by law. Electronically signed by: Jamie Jc M.D. 05/15/2022 6:36 AM
--- NOTE | 2022-05-16 05:41 | Electrocardiogram Report ---
Test Reason : Blood Pressure : / mmHG Vent. Rate : 087 BPM Atrial Rate : 087 BPM P-R Int : 156 ms QRS Dur : 082 ms QT Int : 382 ms P-R-T Axes : 039 031 020 degrees QTc Int : 459 ms Normal sinus rhythm Normal ECG No previous ECGs available Confirmed by Hosea Trejo ([id number]) on 05/16/2022 5:40:58 AM Referred By: REFERRED SELF Confirmed By:Hosea Trejo
[2022-05-16] MEDS: OLANZapine 10 MG/2.1 ML SDV IM PRN ×3 (05:52→23:30)
[2022-05-16 07:37] LABS: Basophils # (auto) 0.08 K/uL (0-0.2); Basophils % (auto) 1.1 %; Eosinophils # (auto) 0.21 K/uL (0-0.50); Hematocrit (blood only) 49.8 % (40.1-51.0); Hemoglobin 17.7 g/dl (14.0-18.0); Immature Granulocytes # (auto) 0.06 K/uL (0.00-0.02); Immature Granulocytes % (auto) 0.9 %; Lymphocytes # (auto) 2.11 K/uL (1.2-3.4); Lymphocytes % (auto) 30.1 %; Mean Corpuscular Hgb Conc 35.5 g/dL (32.0-36.0); Mean Corpuscular Volume 92.7 fL (80.0-100.0); Mean Platelet Volume 11.5 fL (9.4-12.4); Monocytes # (auto) 0.86 K/uL (0.24-0.82); Monocytes % (auto) 12.3 %; Neutrophils % (auto) 52.6 %; Platelet Count 186 K/uL (130-400); RDW Standard Deviation 41.2 fL (36.4-46.3); Red Blood Count 5.37 M/uL (4.63-6.08); White Blood Count 7.02 K/ul (4.8-10.8)
[2022-05-16 08:02] LABS: BUN Creatinine Ratio 12.5 (10-20); Creatinine Clr Calc Pharmacy 125.6 ml/min; Est GFR (African American) 110.2 ml/min; Est GFR (Non-African American) 95.1 ml/min; Potassium 3.6 mmol/L (3.5-5.1)
[2022-05-16] MEDS: amLODIPine BESYLATE 5 MG TAB PO SCH (09:30)
[2022-05-16] MEDS: LORATADINE 10 MG TAB PO SCH (09:30)
[2022-05-16] MEDS: ASPIRIN 81 MG ECTAB PO SCH (09:30)
[2022-05-16] MEDS: LINACLOTIDE 145 MCG CAPSULE PO SCH (09:30)
[2022-05-16] MEDS: ENOXAPARIN INJ 40 MG/0.4 ML SYR SQ SCH (09:30)
[2022-05-16] MEDS: HYDROCORTISONE 1% CRM 30 GM TUBE EXT SCH ×3 (09:31→20:25)
[2022-05-16] MEDS: MUPIROCIN 2% OINT 22 GM TUBE TOP SCH ×2 (09:31→20:26)
--- NOTE | 2022-05-16 09:36 | CT Scan Report ---
HEAD CT NONCONTRAST CT DOSE: 823.94 mGycm HISTORY: Stroke like symptoms. Follow up left temporal parietal lobe infarct. TECHNIQUE: Multiaxial CT images of the head were performed without the use of intravenous contrast. A utomated exposure control was utilized for this study. A dose lowering technique was utilized adheri ng to the principles of ALARA. Comparison: Head CT 05/15/2022. Findings: The paranasal sinuses and mastoid air cells are clear. The calvarium and skull base are int act. There is an old left [employer] territory infarct again noted. No significant change in the focal hypodense area within the left temporal/parietal lobe consistent w ith an acute to subacute infarct. This is best seen on image 18. No evidence for hemorrhagic transfor mation at this time. Areas of questionable increased density within the left-sided infarct likely rep resent residual normal cortex. Impression: 1. No significant change in the left temporal/parietal lobe infarct. 2. Old left YARD SPECIALIST territory infarct again noted. 3. No acute intracranial hemorrhage. ACT 112: Negative or not required by law. Electronically signed by: Jones Vazquez M.D. 05/16/2022 9:34 AM
--- NOTE | 2022-05-16 11:12 | Cardiology Consultation ---
Date of Consultation May 16, 2022 Assessment & Plan (1) Aphasia as late effect of cerebrovascular accident: (2) History of multiple strokes: (3) Schizoaffective disorder: (4) HTN (hypertension): Plan Obtain records from recent hospitalization(s) Refer for resting echocardiography Maintain continuous telemetry monitoring Add low dose carvedilol 3.125 mg twice a day for blood pressure and heart rate control Continue aspirin and statin for secondary stroke prevention Recommend discontinuation of estrogen Recommend tobacco cessation Hypercoagulable state work-up. NPO after midnight for possible GABY with anesthesia Supervising Physician Co-Signing Physician Notes I reviewed the medical record and discussed the case with Mr. France. I have seen and examined the patient. He will have some difficulty with the GABY due to his recent stroke. I think help from anesthesia for good sedation and airway management is important. History of Present Illness Reason for Consultation: GABY evaluation, recurrent CVA Requesting Physician: Govind Attending Physician: Govind History of Present Illness Patient evaluated at 08:50 AM, prior to departing for the follow-up CT scan of the head Cardiology Consultation requested by Dr. Faust, RE: GABY evaluation, recurrent CVA. Information obtained primarily from chart review. Limited information obtained from patient due to the marked expressive aphasia, word salad. No information available in the [employer] EMR. No prior evaluations at [facility]. No information available from the recent hospitalization at [place] Gender dysphoria (male to female transgender), on estrogen supplement. Smoker, with history of hypertension and hyperlipidemia. Schizoaffective disorder, anxiety/mood disorder, HCV, history IVDU, VENKATESH, prediabetes Hospitalized at [facility] in April 2022, recurrent ischemic strokes primarily involving left middle cerebral artery territory. Intracranial hemorrhage reported via 03/2022 imaging per documentation. Left against medical advise. Brought back to ER by law enforcement with 302 petition due to patient's suicidality. Discharged to the [facility] Referred to the [facility] ER from [place] due to increased agitation and possible confusion. Workup in the ER revealed hyponatremia (130 mmol/L). CT revealed an acute infarct of the left temporal parietal lobe and a chronic left occipital infarct. BP elevated to 168/107 on presentation. No chest pain. No palpitations. No shortness of breath. 1 on 1 notes that patient was able to eat breakfast this morning without difficulty. Allergies Allergy/AdvReac Type Severity Reaction Status Date / Time cat dander Allergy Unknown ON MED LIST Verified 05/15/22 00:46 pollen extracts Allergy Unknown ON MED LIST Verified 05/15/22 00:46 Home Medications Medication Instructions Recorded Confirmed Type acetaminophen 325 mg tablet 650 mg PO Q4H PRN Pain 05/15/22 05/15/22 History (Tylenol) atorvastatin 20 mg tablet 20 mg PO HS 05/15/22 05/15/22 History diphenhydramine HCl 50 mg capsule 50 mg PO Q6H PRN Itching 05/15/22 05/15/22 History estradiol 0.1 mg/24 hr semiweekly 0.1 mg transdermal 2XWK 05/15/22 05/15/22 History transdermal patch finasteride 1 mg tablet 1 mg PO DAILY 05/15/22 05/15/22 History hydrocortisone 1 % topical cream 1 applic topical TID 05/15/22 05/15/22 History linaclotide 290 mcg capsule 290 mcg PO DAILY 05/15/22 05/15/22 History (Linzess) linaclotide 72 mcg capsule 72 mcg PO DAILY 05/15/22 05/15/22 History (Linzess) mupirocin 2 % topical ointment 1 applic topical BID 05/15/22 05/15/22 History quetiapine 50 mg tablet (Seroquel) 50 mg PO DIRECTED PRN Agitation 05/15/22 05/15/22 History spironolactone 100 mg tablet 300 mg PO HS 05/15/22 05/15/22 History venlafaxine 150 mg 150 mg PO QAM 05/15/22 05/15/22 History capsule,extended release 24 hr (Effexor XR) Patient History Medical History (Updated 05/16/22 @ 12:55 by Rickey Virk MD) Aphasia as late effect of cerebrovascular accident Gender dysphoria History of intravenous drug use in remission History of multiple strokes HTN (hypertension) Schizoaffective disorder Social History Smoking Status: Unknown if ever smoked Preferred Language: Argentine Communication Ability: Impaired Communication Ability Comment: Expressive aphasia Clinical Assistant Professor Required: No marital status: Single Current Living Situation Comment: Unable to obtain- AMS Feels Safe at Home: Yes Safety Concerns: Feels Safe At This Time Gender Identity: Female Assistive Devices: None Review of Systems Review of Systems: A complete and accurate review of systems was unable to be obtained. Physical Exam Physical Exam: General: NAD. HEENT: Normocephalic. Atraumatic. Eyes: PER. Conjunctiva pink, sclera clear. Neck: No carotid bruits. No JVD. Heart: Regular at 82 bpm. Soft systolic murmur heart at the right upper sternal border. No rub. No gallop. PMI is nondisplaced. Lungs: Clear to auscultation. Abdomen: +BS. Soft. Nontender. No masses or organomegaly. Extremities: No clubbing, cyanosis, or edema. Limited neurological examination: Word salad. Skin: + Rash. + Tattoos. Pulses: radial=2/4, posterior tibial=2/4. Results & Data ([facility]) Vital Signs (Past 12 Hours) Vital Signs Temp Pulse Resp BP Pulse Ox O2 Del Method 05/16/22 11:00 36.6 C 93 H 19 148/104 H 96 Room Air 05/16/22 07:50 36.6 C 81 15 143/86 H 95 Room Air 05/16/22 04:18 36.6 C 96 H 16 154/100 H 96 Room Air Laboratory Results CBC 05/16/22 Range/Units 06:12 WBC 7.02 (4.8-10.8) K/ul RBC 5.37 (4.63-6.08) M/uL Hgb 17.7 (14.0-18.0) g/dl Hct 49.8 (40.1-51.0) % Plt Count 186 (130-400) K/uL Neut # (Auto) 3.70 (1.4-6.5) K/uL Lymph # (Auto) 2.11 (1.2-3.4) K/uL [place] # (Auto) 0.86 H (0.24-0.82) K/uL Eos # (Auto) 0.21 (0-0.50) K/uL Baso # (Auto) 0.08 (0-0.2) K/uL Comprehensive Metabolic Panel 05/16/22 Range/Units 06:12 Sodium 134 L (136-145) mmol/L Potassium 3.6 (3.5-5.1) mmol/L Chloride 103 (98-107) mmol/L Carbon Dioxide 21 (21-32) mmol/L BUN 12 (6-23) mg/dl Creatinine 0.96 (0.6-1.4) mg/dl Glucose 190 H (70-99(Fasting)) mg/dl Calcium 9.0 (8.5-10.1) mg/dl Intake and Output 05/15/22 05/16/22 05/16/22 22:59 06:59 14:59 Intake Total 1876 / 2476 Output Total 600 / 2500 800 / 2500 Balance 1276 / -24 -800 / -24 Intake: IV 796 / 796 Sodium Chloride 0.9% 1000ML 1, 796 / 796 000 ml @ 60 mls/hr IV .[id number] ONE Rx#:[id number] Oral 1080 / 1680 Output: Urine Amount (Catheter) 600 / 2500 800 / 2500 Bone/Indwelling 600 / 2500 800 / 2500 Other: Weight 108.6 kg Weight Measurement Method Built in [facility] Diagnostic Findings Personal review of the patient's continuous mink farmer reveals sinus rhythm/sinus tachycardia with heart rates ranging from the 80's to 110's. No atrial fibrillation or flutter.
--- NOTE | 2022-05-16 11:55 | Psychiatric Consultation ---
Date of Consultation May 16, 2022 Impression / Recommendations Impression 47 yo trans female s/p MCA stroke with expressive aphasia, treated for scabies, increasingly agitated following stroke and then med changes at the [facility] (significant dose reduction in SEroquel, titration of Effexor XR in a patient with schizoaffective disorder (need to clarify type, suspect bipolar type vs depressive), and/or side effects to Keppra). (1) Schizoaffective disorder: Plan continue 1-on-1, believe was 201 but reconfirming, regardless of commitment status patient attempted to elope during a recent hospitalization and reportedly escalated at the [facility]. We are still attempting to clarify hx of SI/SIB/aggression. I left message for treating psychiatrist at the [facility], Dr. Astudillo to coordinate care given complex psychopharm and multiple meds held here. need additional psychiatric hx from mother, patient gave consent has Zyprexa IM as ordered, neurology was consulted by hospitalist service, Na improving, would not resume Effexor XR (at least until back on reliable mood stabilizer, additional recs will depend on hx). Psych History Identifying Data 47 yo transgendered person (genetic male to female transition) from [facility] admit medically on 05/[address] [facility] hospitalization for increase in agitation. Chief Complaint patient with expressive aphasia, states "the problem is my physical, the stroke and not my mental." History of Present Illness Patient more awake than yesterday, reviewed records that are now available from [facility] and H&P from [facility]. Liaisons reached out to [facility] and home pharmacy in attempt to understand medication changes leading up to inpatient stay. Will reach back out to confirm commitment status as there is mention of at least a 302 petition. Will request copy of 201 since some diff iculty confirming over weekend. It's still unclear what the patient actually said, seems to have gotten into argument with staff at [place] over estorgen patches, had possible post stroke AMS, and/or communication difficulties related to stroke that were perhaps confused with psychotic symptoms as mainly described as rambling. Family petitioned 302 while medically hospitalized prior to [facility] as attempted to elope and appears did receive IM medication. Meds prior to [facility] for ?schizophrenia: Buspar 30 mg BID, Seroquel 600 mg po qhs and Ativan 1 mg q6 prn by a PCP. admission H&P to [facility] lists Seroquel 300 mg hs and Buspar 30 mg daily, LM to confirm with Dr. Astudillo. Meds at [facility] for "vascular dementia" per Dr. Collins: Seroquel 50 mg prn, Effexor XR 150 mg daily, Keppra 1000 mg hs (per phone call to [facility] by liaison) meds while at [facility]: Keppra was not continued as no listed, Effexor XR held due to elevated BP and agitation. note sodium was low on admission the patient is not able to provide reliable psych hx, consent for involvement of mother who has been in contact with medical. Allergies Allergy/AdvReac Type Severity Reaction Status Date / Time cat dander Allergy Unknown ON MED LIST Verified 05/15/22 00:46 pollen extracts Allergy Unknown ON MED LIST Verified 05/15/22 00:46 Home Medications Medication Instructions Recorded Confirmed Type acetaminophen 325 mg tablet 650 mg PO Q4H PRN Pain 05/15/22 05/15/22 History (Tylenol) atorvastatin 20 mg tablet 20 mg PO HS 05/15/22 05/15/22 History diphenhydramine HCl 50 mg capsule 50 mg PO Q6H PRN Itching 05/15/22 05/15/22 History estradiol 0.1 mg/24 hr semiweekly 0.1 mg transdermal 2XWK 05/15/22 05/15/22 History transdermal patch finasteride 1 mg tablet 1 mg PO DAILY 05/15/22 05/15/22 History hydrocortisone 1 % topical cream 1 applic topical TID 05/15/22 05/15/22 History linaclotide 290 mcg capsule 290 mcg PO DAILY 05/15/22 05/15/22 History (Linzess) linaclotide 72 mcg capsule 72 mcg PO DAILY 05/15/22 05/15/22 History (Linzess) mupirocin 2 % topical ointment 1 applic topical BID 05/15/22 05/15/22 History quetiapine 50 mg tablet (Seroquel) 50 mg PO DIRECTED PRN Agitation 05/15/22 05/15/22 History spironolactone 100 mg tablet 300 mg PO HS 05/15/22 05/15/22 History venlafaxine 150 mg 150 mg PO QAM 05/15/22 05/15/22 History capsule,extended release 24 hr (Effexor XR) Family History unable to provide Patient History Medical History Aphasia as late effect of cerebrovascular accident History of multiple strokes HTN (hypertension) Social History Smoking Status: Unknown if ever smoked Preferred Language: Latvian Communication Ability: Impaired Communication Ability Comment: Expressive aphasia Selling Specialist Required: No marital status: Single Current Living Situation Comment: Unable to obtain- AMS Feels Safe at Home: Yes Safety Concerns: Feels Safe At This Time Gender Identity: Female Assistive Devices: None Physical Exam Psychiatric: Orientation: alert, oriented to person and oriented to place Eye Contact: + fair eye contact Motor Behavior: no abnormal motor movements Speech: + abnormal rate/rhythm/volume of speech Affect: + depressed affect Mood: + irritable mood Thought Process: + tangential thought process Thought Content: no delusions Suicidal Thoughts: denies suicidal thoughts Homicidal Thoughts: denies homicidal thoughts Hallucinations: no auditory hallucinations and no visual hallucinations Cognition: language grossly intact; + attention not intact Insight: + limited insight Judgement: + limited judgement Vital Signs (Past 24 Hours): Last Vital Signs Temp 36.6 C 05/16/22 11:00 Pulse 93 H 05/16/22 11:00 Resp 19 05/16/22 11:00 BP 148/104 H 05/16/22 11:00 Pulse Ox 96 05/16/22 11:00 O2 Del Method 05/16/22 11:00 Review of Systems All systems reviewed & are unremarkable except as noted in HPI & below Results & Data (PSY) Laboratory Results 05/16/22 05/16/22 05/16/22 Range/Units 08:46 08:46 08:46 WBC (4.8-10.8) K/ul RBC (4.63-6.08) M/uL Hgb (14.0-18.0) g/dl Hct (40.1-51.0) % MCV (80.0-100.0) fL MCH (25.0-34.0) pg MCHC (32.0-36.0) g/dL RDW Std Deviation (36.4-46.3) fL RDW Coeff of Grazyna (11.5-14.5) % Plt Count (130-400) K/uL MPV (9.4-12.4) fL Immature Gran % (Auto) % Neut % (Auto) % Lymph % (Auto) % [place] % (Auto) % Eos % (Auto) % Baso % (Auto) % Neut # (Auto) (1.4-6.5) K/uL Lymph # (Auto) (1.2-3.4) K/uL [place] # (Auto) (0.24-0.82) K/uL Eos # (Auto) (0-0.50) K/uL Baso # (Auto) (0-0.2) K/uL Immature Gran # (Auto) (0.00-0.02) K/uL LA PTT Screen Pending Protein C Activity Pending Protein S Activity Pending Antithrombin III Activ Pending Factor V Leiden Mutat Pending Factor V Leiden Interp Pending Sodium (136-145) mmol/L Potassium (3.5-5.1) mmol/L Chloride (98-107) mmol/L Carbon Dioxide (21-32) mmol/L Anion Gap (3-11) BUN (6-23) mg/dl Creatinine (0.6-1.4) mg/dl Est Cr Clr Drug Dosing ml/min Est GFR ( Amer) ml/min Est GFR (Non-Af Amer) ml/min BUN/Creatinine Ratio (10-20) Glucose (70-99(Fasting)) mg/dl Calcium (8.5-10.1) mg/dl Homocysteine Pending Beta-2-GPI IgG Ab Pending Beta-2-GPI IgM Ab Pending Anti-Cardiolipin IgG Ab Pending Anti-Cardiolipin IgM Ab Pending Prothrombin Gene Mutate Pending Prothromb Gene Comment Pending 05/16/22 05/16/22 Range/Units 06:12 06:12 WBC 7.02 (4.8-10.8) K/ul RBC 5.37 (4.63-6.08) M/uL Hgb 17.7 (14.0-18.0) g/dl Hct 49.8 (40.1-51.0) % MCV 92.7 (80.0-100.0) fL MCH 33.0 (25.0-34.0) pg MCHC 35.5 (32.0-36.0) g/dL RDW Std Deviation 41.2 (36.4-46.3) fL RDW Coeff of Grazyna 12.0 (11.5-14.5) % Plt Count 186 (130-400) K/uL MPV 11.5 (9.4-12.4) fL Immature Gran % (Auto) 0.9 % Neut % (Auto) 52.6 % Lymph % (Auto) 30.1 % [place] % (Auto) 12.3 % Eos % (Auto) 3.0 % Baso % (Auto) 1.1 % Neut # (Auto) 3.70 (1.4-6.5) K/uL Lymph # (Auto) 2.11 (1.2-3.4) K/uL [place] # (Auto) 0.86 H (0.24-0.82) K/uL Eos # (Auto) 0.21 (0-0.50) K/uL Baso # (Auto) 0.08 (0-0.2) K/uL Immature Gran # (Auto) 0.06 H (0.00-0.02) K/uL LA PTT Screen Protein C Activity Protein S Activity Antithrombin III Activ Factor V Leiden Mutat Factor V Leiden Interp Sodium 134 L (136-145) mmol/L Potassium 3.6 (3.5-5.1) mmol/L Chloride 103 (98-107) mmol/L Carbon Dioxide 21 (21-32) mmol/L Anion Gap 10 (3-11) BUN 12 (6-23) mg/dl Creatinine 0.96 (0.6-1.4) mg/dl Est Cr Clr Drug Dosing 125.6 ml/min Est GFR ( Amer) 110.2 ml/min Est GFR (Non-Af Amer) 95.1 ml/min BUN/Creatinine Ratio 12.5 (10-20) Glucose 190 H (70-99(Fasting)) mg/dl Calcium 9.0 (8.5-10.1) mg/dl Homocysteine Beta-2-GPI IgG Ab Beta-2-GPI IgM Ab Anti-Cardiolipin IgG Ab Anti-Cardiolipin IgM Ab Prothrombin Gene Mutate Prothromb Gene Comment Medications Administered Amlodipine Besylate (Amlodipine Besylate 5 Mg Tab) 2.5 mg PO [facility] Stop: 06/14/22 08:59 Last Admin: 05/16/22 09:30 Dose: 2.5 mg Documented By: Admin: 05/15/22 09:48 Dose: 2.5 mg Documented By: ERI Aspirin (Aspirin 81 Mg Ectab) 81 mg PO [facility] Stop: 06/14/22 08:59 Last Admin: 05/16/22 09:30 Dose: 81 mg Documented By: Admin: 05/15/22 09:48 Dose: 81 mg Documented By: ERI Atorvastatin Calcium (Atorvastatin 20 Mg Tab) 20 mg PO [facility] Stop: 06/14/22 20:59 Last Admin: 05/15/22 20:45 Dose: 20 mg Documented By: NUSRAT Enoxaparin Sodium (Enoxaparin Inj 40 Mg/0.4 Ml Syr) 40 mg SQ [facility] Stop: 06/14/22 08:59 Last Admin: 05/16/22 09:30 Dose: 40 mg Documented By: Admin: 05/15/22 09:48 Dose: 40 mg Documented By: ERI Hydrocortisone (Hydrocortisone 1% Crm 30 Gm Tube) 1 appln EXT TID REPLACED BY [facility] Stop: 06/14/22 08:59 Last Admin: 05/16/22 09:31 Dose: 1 appln Documented By: Admin: 05/15/22 20:02 Dose: 1 appln Documented By: Admin: 05/15/22 13:36 Dose: 1 appln Documented By: Admin: 05/15/22 09:49 Dose: 1 appln Documented By: ERI Linaclotide (Linaclotide 145 Mcg Capsule) 290 mcg PO DAILY REPLACED BY [facility] Stop: 06/14/22 08:59 Last Admin: 05/16/22 09:30 Dose: 290 mcg Documented By: Admin: 05/15/22 09:49 Dose: 290 mcg Documented By: ERI Loratadine (Loratadine 10 Mg Tab) 10 mg PO [facility] Stop: 06/15/22 08:59 Last Admin: 05/16/22 09:30 Dose: 10 mg Documented By: ERI Miscellaneous (Order Awaiting Action: Finasteride 1 Mg Tablet) 1 each N/A QS REPLACED BY [facility] Stop: 06/14/22 07:59 Last Admin: 05/15/22 23:30 Dose: Not Given Documented By: Admin: 05/15/22 19:06 Dose: Not Given Documented By: Admin: 05/15/22 19:06 Dose: Not Given Documented By: NUSRAT Mupirocin (Mupirocin 2% Oint 22 Gm Tube) 1 appln TOP BID REPLACED BY [facility] Stop: 06/14/22 08:59 Last Admin: 05/16/22 09:31 Dose: 1 appln Documented By: Admin: 05/15/22 20:02 Dose: 1 appln Documented By: Admin: 05/15/22 09:49 Dose: 1 appln Documented By: ERI Olanzapine (Olanzapine 10 Mg/2.1 Ml Sdv) 5 mg IM Q6H PRN PRN Reason: Anxiety/Agitation Stop: 06/14/22 03:22 Last Admin: 05/16/22 05:52 Dose: 5 mg Documented By: Admin: 05/15/22 20:01 Dose: 5 mg Documented By: Admin: 05/15/22 09:50 Dose: 5 mg Documented By: ERI Coding Level of Care Code 47968 U Intl Hosp Care Lvl 2 Diagnoses Schizoaffective disorder F25.9
[2022-05-16] MEDS: carvediloL 3.125 MG TAB PO SCH ×2 (12:48→20:10)
--- NOTE | 2022-05-16 12:53 | Anesthesiology Consultation ---
Date of Service May 16, 2022 Assessment & Plan (1) Encounter for pre-operative examination: Chart Review Chart Review: Acceptable Risk for Surgery History Height/Weight Height: 6 ft 1 in Weight: 108.6 kg Allergies Allergy/AdvReac Type Severity Reaction Status Date / Time cat dander Allergy Unknown ON MED LIST Verified 05/15/22 00:46 pollen extracts Allergy Unknown ON MED LIST Verified 05/15/22 00:46 Medications Home Medications Medication Instructions Recorded Confirmed Last Taken acetaminophen 325 mg tablet 650 mg PO Q4H PRN Pain 05/15/22 05/15/22 05/14/22 14:11 (Tylenol) atorvastatin 20 mg tablet 20 mg PO HS 05/15/22 05/15/22 05/14/22 diphenhydramine HCl 50 mg capsule 50 mg PO Q6H PRN Itching 05/15/22 05/15/22 05/14/22 21:42 estradiol 0.1 mg/24 hr semiweekly 0.1 mg transdermal 2XWK 05/15/22 05/15/22 Unknown transdermal patch finasteride 1 mg tablet 1 mg PO DAILY 05/15/22 05/15/22 Unknown hydrocortisone 1 % topical cream 1 applic topical TID 05/15/22 05/15/22 05/14/22 17:00 linaclotide 290 mcg capsule 290 mcg PO DAILY 05/15/22 05/15/22 Unknown (Linzess) linaclotide 72 mcg capsule 72 mcg PO DAILY 05/15/22 05/15/22 Unknown (Linzess) mupirocin 2 % topical ointment 1 applic topical BID 05/15/22 05/15/22 05/14/22 quetiapine 50 mg tablet (Seroquel) 50 mg PO DIRECTED PRN Agitation 05/15/22 05/15/22 05/12/22 spironolactone 100 mg tablet 300 mg PO HS 05/15/22 05/15/22 05/14/22 venlafaxine 150 mg 150 mg PO QAM 05/15/22 05/15/22 05/14/22 capsule,extended release 24 hr (Effexor XR) Active Medications Generic Name Dose Route Start Last Admin Trade Name Freq PRN Reason Stop Dose Admin Amlodipine Besylate 2.5 mg 05/15/22 09:00 05/16/22 09:30 Amlodipine Besylate 5 Mg Tab PO 06/14/22 08:59 2.5 mg QAM DILAN Administration Aspirin 81 mg 05/15/22 09:00 05/16/22 09:30 Aspirin 81 Mg Ectab PO 06/14/22 08:59 81 mg QAM DILAN Administration Atorvastatin Calcium 20 mg 05/15/22 21:00 05/15/22 20:45 Atorvastatin 20 Mg Tab PO 06/14/22 20:59 20 mg HS DILAN Administration Carvedilol 3.125 mg 05/16/22 11:45 05/16/22 12:48 Carvedilol 3.125 Mg Tab PO 06/15/22 11:44 3.125 mg BID DILAN Administration Enoxaparin Sodium 40 mg 05/15/22 09:00 05/16/22 09:30 Enoxaparin Inj 40 Mg/0.4 Ml Syr SQ 06/14/22 08:59 40 mg QAM DILAN Administration Hydrocortisone 1 appln 05/15/22 09:00 05/16/22 09:31 Hydrocortisone 1% Crm 30 Gm Tube EXT 06/14/22 08:59 1 appln TID DILAN Administration Linaclotide 290 mcg 05/15/22 09:00 05/16/22 09:30 Linaclotide 145 Mcg Capsule PO 06/14/22 08:59 290 mcg DAILY DILAN Administration Loratadine 10 mg 05/16/22 09:00 05/16/22 09:30 Loratadine 10 Mg Tab PO 06/15/22 08:59 10 mg QAM DILAN Administration Miscellaneous 1 each 05/15/22 08:00 05/15/22 23:30 Order Awaiting Action: Finasteride 1 Mg Tablet N/A 06/14/22 07:59 Not Given QS DILAN Mupirocin 1 appln 05/15/22 09:00 05/16/22 09:31 Mupirocin 2% Oint 22 Gm Tube TOP 06/14/22 08:59 1 appln BID DILAN Administration Olanzapine 5 mg 05/15/22 03:23 05/16/22 05:52 Olanzapine 10 Mg/2.1 Ml Sdv IM 06/14/22 03:22 5 mg Q6H PRN Administration Anxiety/Agitation Past Medical History Medical History (Updated 05/16/22 @ 12:55 by Rickey Virk MD) Aphasia as late effect of cerebrovascular accident Gender dysphoria History of intravenous drug use in remission History of multiple strokes HTN (hypertension) Schizoaffective disorder Social History Smoking Status: Unknown if ever smoked Physical Exam Vital Signs Last Vital Signs Temp 36.6 C 05/16/22 11:00 Pulse 93 H 05/16/22 11:00 Resp 19 05/16/22 11:00 BP 148/104 H 05/16/22 11:00 Pulse Ox 96 05/16/22 11:00 O2 Del Method 05/16/22 11:00 Testing Laboratory Results 05/16/22 06:12 05/16/22 06:12 PT 11.7 Seconds (9.0-12.0) 05/15/22 02:23 INR 1.1 (0.9-1.1) 05/15/22 02:23 APTT 28.3 Seconds (21.0-31.0) 05/15/22 02:23 Urine Color Dark Yellow 05/15/22 Unknown Urine Appearance Clear (Clear) 05/15/22 Unknown Urine pH 5.5 (4.5-7.5) 05/15/22 Unknown Ur Specific [place] 1.022 (1.000-1.030) 05/15/22 Unknown Urine Protein Negative (Negative) 05/15/22 Unknown Urine Glucose (UA) Negative (Negative) 05/15/22 Unknown Urine Ketones 1+ (Negative) H 05/15/22 Unknown Urine Nitrite Negative (Negative) 05/15/22 Unknown Ur Leukocyte Esterase Negative (Negative) 05/15/22 Unknown
--- NOTE | 2022-05-16 14:44 | Hospitalist Progress Note ---
Date of Service May 16, 2022 Assessment & Plan (1) Encephalopathy: Plan: Recent acute CVA, left MCA Recurrent stroke hx schizoaffective disorder/anxiety/mood disorder, unknown status Patient brought into the ER for worsening confusion at the [facility] CT head: 1. Acute infarct of the left temporal parietal lobe. 2. Chronic left occipital infarct. 3. No acute intracranial hemorrhage or midline shift. Urine drug screen: Positive marijuana-patient's mother reports patient received marijuana from their neighbor prior to being admitted to the [facility] patient is calm and cooperative Has expressive aphasia, but follows all commands, able to perform tasks independently Neurologist consulted Recommended: Brain MRI, unable to be performed Repeat CT head: 1. No significant change in the left temporal/parietal lobe infarct. 2. Old left TYPESETTER APPRENTICE territory infarct again noted. 3. No acute intracranial hemorrhage. Recommend GABY-cardiology consulted Recommend hypercoagulable [id number], follow Continue aspirin, atorvastatin Blood pressure control with amlodipine Psychiatrist also consulted One-to-one observation while admitted Hold Effexor As needed Zyprexa Mild hyponatremia Improved from 130, to 134 with IV fluids Pruritic rash involving patient's extremities and trunk likely scabies infestation --Continue permethrin hypertension, elevated upon arrival at the ER --Continue amlodipine hyperlipidemia on statin Rx hx HCV unknown status gender dysphoria (male to female transgender person), patient transdermal estrogen resumed at the [facility] -- Hold estrogen per neurology service history IVDU prediabetes, hemoglobin A1c of 5.8 hemoglobin A1c of 5.8 last April 2022 ongoing tobacco abuse DVT prophylaxis per Lovenox subcu Full code Admission and Anticipated Discharge Date Admission Date: May 15, 2022 Subjective Follow-up for confusion in the setting of recurrent CVA, etc. Seen resting in bed, watching TV, not in distress, comfortable Still has expressive aphasia, but tries to speak Feels okay overall No headache, dizziness, nausea No chest pain, shortness of breath No other issues Review of Systems Review of Systems: all noted and negative except for above Physical Exam Physical Exam: General-seems to be oriented, not in distress, speaks in sentences with no effort or accessory muscle use Eyes- anicteric Neck- no JVD Lungs- clear breath sounds bilaterally, no crackles or wheeze Heart- normal rate, regular rhythm; no murmurs Abdomen- normal bowel sounds, nondistended, soft, nontender Extremities- no pretibial edema, no calf tenderness Neuro- alert, oriented x 3; positive expressive aphasia, no gross focal neurologic deficits Skin- warm & dry Positive papular rash bilateral arms Results & Data Results & Data ([facility]) Vital Signs (Past 12 Hours) Vital Signs Temp Pulse Resp BP Pulse Ox O2 Del Method 05/16/22 11:00 36.6 C 93 H 19 148/104 H 96 Room Air 05/16/22 07:50 36.6 C 81 15 143/86 H 95 Room Air 05/16/22 04:18 36.6 C 96 H 16 154/100 H 96 Room Air all noted and reviewed including below
[2022-05-16] MEDS: ACETAMINOPHEN 325 MG TAB PO PRN (19:48)
[2022-05-16] MEDS: ATORVASTATIN 20 MG TAB PO SCH (20:24)
--- NOTE | 2022-05-17 09:18 | Communication Note ---
Date of Service: May 17, 2022 interim progress reviewed, case discussed briefly with Dr. aFust. Patient scheduled for GABY today. Patient's mother able to report that she had behavioral issues since age 14 yo and confirmed dx of "bipolar schizophrenia", ie schizoaffective disorder, bipolar type. Patient has 3 children and was in relationship with women without known gender dysphoria until 3 years ago when caught fiance cheating with a woman (per mother). The patient has been increasingly irritable/agitated at home since starting estrogen (per mother), more likely to punch hastings and throw things. Their outpatient provider [facility] will be closing and unsure where they will follow up as [facility] (absorbing patients) is not taking insurance. Confirmed meds at home as previously listed plus Cogentin 1 mg BID. No injectables. Patient's MSE appears to be improving with holding Effexor which was likely activating, and Keprra (?agitating). I don't see an immediate need to resume standing Seroquel as active medical work up, not psychotic, and not a behavior management problem but will need addressed soon. Continue 1-on-1 for hx of elopement and unpredictable behavior, at least for today as disposition also not clear. Reviewed that psych unit ([facility]) likely to want an updated PT assessment.
--- NOTE | 2022-05-17 09:50 | Cardiology Progress Note ---
Date of Service May 17, 2022 Assessment & Plan (1) Aphasia as late effect of cerebrovascular accident: (2) History of multiple strokes: (3) Schizoaffective disorder: (4) HTN (hypertension): Plan GABY this AM Continue telemetry monitoring Continue carvedilol and amlodipine heart rate and blood pressure control, aspirin and statin for secondary stroke prevention Estrogen discontinued this admission. Tobacco cessation urged. Admission and Anticipated Discharge Date Admission Date: May 15, 2022 Supervising Physician Co-Signing Physician Notes Supervising Physician Attestation: I have personally performed a history and physical examination on the patient. I agree with the physician accounting assistant's findings and plan as documented with the following additions. Subjective: Patient without complaints. Ongoing expressive aphasia noted. Per review of progress notes from [facility] that had right since yesterday, recent admission there in late April, patient had expressive aphasia at that time as well. Exam: Expressive aphasia Cardiovascular regular rhythm, no murmurs Data: Telemetry reveals sinus rhythm for the most part in the range of 80s to 90s, with occasional sinus tachycardia episodes up to the 140s Transthoracic echocardiogram reviewed independently. Somewhat of a technically difficult study. No abnormalities noted, with normal LVEF. Resolution is insufficient to exclude PFO. Assessment and Plan: Recurrent strokes -Per review of progress notes, neurology in [place] had recommended a transesophageal echocardiogram at admission last month. I called the echocardiography lab there and discussed the case with a nurse who was able to confirm for me that the patient did not have at GABY there just a transthoracic study. -Although patient has risk factors for strokes including hypertension, dyslipidemia, and estrogen use, agree with proceeding with transesophageal echocardiogram for further evaluation of cardiac source of embolism. -As noted, occult atrial fibrillation also possibility. -Due to scheduling limitations, tentative plan is to proceed with transesophageal echocardiogram the morning of 05/17/2022, to allow time for anesthesia consultation, as given the complexity the patient's case, in person consultation recommended. I have changed the dietary orders to advance the patient's diet today and to make her n.p.o. after midnight. Informed consent for GABY obtained. I attempted to update the patient's mother , Alessandra, by phone at [phone] but was not able to connect with her. DVT prophylaxis: Lilliana Bueno DO Subjective Patient seen and examined earlier this morning, around 09:30. Asking for Seroquel. + Cough productive of phlegm. Denies chest pain, palpitations, shortness of breath, or trouble swallowing. NPO for GABY this morning. Telemetry: Sinus/sinus tachycardia with heart rates ranging from 80 bpm up to a high of 130 bpm. No atrial fibrillation. No atrial flutter. No pauses. No significant ventricular arrhythmias. Resting echocardiography pending interpretation. Review of Systems Review of Systems: A complete and accurate review of systems was unable to be obtained. Physical Exam Physical Exam: General: NAD. HEENT: Normocephalic. Atraumatic. Eyes: PER. Conjunctiva pink, sclera clear. Neck: No JVD. Heart: Regular at 80 bpm. No murmur. Lungs: Clear to auscultation. Abdomen: +BS. Extremities: No clubbing, cyanosis, or edema. Limited neurological examination: Word salad. Skin: + Rash. + Tattoos. Pulses: radial=2/4, posterior tibial=2/4. Results & Data ([facility]) Vital Signs (Past 12 Hours) Vital Signs Temp Pulse Pulse Resp BP Pulse Ox O2 Del Method 05/17/22 07:16 36.5 C 81 20 154/101 H 96 Room Air 05/17/22 04:12 36.6 C 74 18 173/124 H 97 05/16/22 23:27 36.6 C 79 20 156/126 H 96 Room Air 05/16/22 22:46 102 H Laboratory Results Intake and Output 05/16/22 05/17/22 05/17/22 22:59 06:59 14:59 Intake Total 550 / 1400 0 / 1400 Output Total 400 / 2401 1450 / 2401 Balance 150 / -1001 -1450 / -1001 Intake: Oral 550 / 1400 0 / 1400 Output: Urine Amount (Catheter) 400 / 2400 1450 / 2400 Bone/Indwelling 400 / 2400 1450 / 2400 Other: Weight 109.5 kg Weight Measurement Method Built in [facility]
[2022-05-17] MEDS: ASPIRIN 81 MG ECTAB PO SCH (10:19)
[2022-05-17] MEDS: carvediloL 3.125 MG TAB PO SCH ×2 (10:19→20:13)
[2022-05-17] MEDS: amLODIPine BESYLATE 5 MG TAB PO SCH (10:19)
[2022-05-17] MEDS: LORATADINE 10 MG TAB PO SCH (10:19)
[2022-05-17] MEDS: ENOXAPARIN INJ 40 MG/0.4 ML SYR SQ SCH (10:20)
[2022-05-17] MEDS: LINACLOTIDE 145 MCG CAPSULE PO SCH (10:20)
[2022-05-17] MEDS: MUPIROCIN 2% OINT 22 GM TUBE TOP SCH ×2 (10:21→20:13)
[2022-05-17] MEDS: OLANZapine 10 MG/2.1 ML SDV IM PRN (10:21)
[2022-05-17] MEDS: HYDROCORTISONE 1% CRM 30 GM TUBE EXT SCH ×3 (10:21→20:13)
--- NOTE | 2022-05-17 16:47 | Communication Note ---
Date of Service: May 17, 2022 I attempted to reach pts mother , Hselia again by phone. Unable to reach her. I left broad voicemail stating I would try again tomorrow.
--- NOTE | 2022-05-17 17:01 | Neurology Progress Note ---
Date of Service May 17, 2022 Assessment & Plan (1) Encephalopathy: Plan: Impression: The patient was initially transferred to the emergency department for altered mental status. Laboratory work-up showed hyponatremia. Patient's mental status has been improved since admission. (2) History of multiple strokes: Plan: Impression: The patient was recently hospitalized for recurrent, left MCA t erritory ischemic strokes. He has multiple stroke risk factors including hyperlipidemia, hypertension, estrogen usage, and smoking. HCT on admission was suggestive of acute CVA but based on my review of MRI from last month, there is no obvious radiological change to suggest acute stroke. Plan: We will keep the patient on aspirin 81 mg daily and Lipitor 20 mg at bedtime for secondary stroke prevention. Transesophageal echocardiogram.--unremarkable. Telemetry monitoring. The patient will need long-term cardiac rhythm monitoring to investigate for paroxysmal atrial fibrillation. Hypercoagulable state work-up.--pending results Estrogen replacement therapy will increase the risk of ischemic cerebrovascular accident and was stopped. Cessation of smoking is strongly recommended. Lipid panel. Goal LDL<70. Adjust dosage of Lipitor as needed. The patient is neurologically stable to discharge. Follow-up with neurology clinic. Hypercoagulable state work-up result can be checked at clinic. We will sign off. (3) Abnormal head CT: Plan: Impression: Recent head CT showed abnormalities, suggestive of old left temporal lobe acute ischemic stroke. Plan/recommendations: As seen above. (4) Agitation: Plan: Impression: The patient has Schizoaffective disorder and since having recent stroke, he has been more agitated. Recommendations: Psychiatry on board. (5) Aphasia as late effect of cerebrovascular accident: Plan: Impression: The patient was hospitalized at [facility], for recurrent strokes, involving left middle cerebral artery territory. (6) Schizoaffective disorder: Plan Thank you for the consultation. Admission and Anticipated Discharge Date Admission Date: May 15, 2022 Subjective Patient is calmer today. She has mixt aphasia since the recent stroke but otherwise no new neurological deficit. GABY is unremarkable. Hypercoagulable w/u results are pending. Based on my review of outside MRI from 04/30/2022, recent head CT shows abnormal signals at the same location from earlier stroke and does not indicate an acute stroke. Review of Systems Review of Systems: All systems reviewed & are unremarkable except as noted in HPI & below Physical Exam Physical Exam: General Examination: Constitutional: Well developed person in NAD. HENT: Normal exam with inspection. CV: Hearth rhythm is regular. Neck: Supple, no carotid bruits. Lungs: Non-labored and comfortable breathing. Abdomen: Soft, non-tender, non-distended. Skin: Scabies related skin lesions. Extremities: No edema or cyanosis NEUROLOGICAL EXAMINATION: Mental Status: Alert oriented to his name. Limited exam due to aphasia. Cranial Nerves: II-XII are intact. No nystagmus. Funduscopy: Unable to visualize. Motor: 5/5 in all extremities without asymmetry. Tone: Normal without spasticity or rigidity. Sensory: Intact grossly Coordination: No dysmetria with FTN testing. Speech: Mixed type aphasia. Word salad. Gait: Unable to assess DTRs: 2+ all. No Babinski. Musculoskeletal: Normal muscle bulk, no atrophy. Results & Data ([facility]) Vital Signs (Past 12 Hours) Vital Signs Temp Pulse Pulse Resp BP Pulse Ox O2 Del Method 05/17/22 08:00 90 05/17/22 14:59 36.6 C 91 H 18 132/102 H 96 Room Air 05/17/22 11:00 36.5 C 80 20 151/108 H 98 Room Air 05/17/22 07:16 36.5 C 81 20 154/101 H 96 Room Air Laboratory Results Laboratory Results - last 24 hr 05/16/22 08:46 Homocysteine 13.0 H Diagnostic Findings Head CT 05/14/22 23:54 CT head/brain wo con CLINICAL HISTORY: 47 years-old Male with Stroke Like Symptoms. Acute strokelike symptoms TECHNIQUE: Multiple axial CT images of the head were obtained without contrast. A dose lowering technique was utilized adhering to the principles of ALARA. CT DOSE: 1400.53 mGy.cm COMPARISON: None. FINDINGS: No acute intracranial hemorrhage, midline shift, intracranial mass, hydrocephalus, or abnormal extra-axial collection.4.4 cm area of decreased encephalomalacia noted within the left occipital lobe. Ill-defined area of decreased attenuation with blurring the simpson-white interface is noted within the left temporal parietal lobe measuring up to approximately 3 cm. The calvarium is intact. The paranasal sinuses, mastoid air cells, and middle ear cavities are clear. IMPRESSION: 1. Acute infarct of the left temporal parietal lobe. 2. Chronic left occipital infarct. 3. No acute intracranial hemorrhage or midline shift. ACT 112: Negative or not required by law. The above report was generated using voice recognition software. It may contain grammatical, syntax or spelling errors. Electronically signed by: Eduin Bates M.D. 05/15/2022 6:49 AM Chest X-Ray 05/15/22 02:27 XR chest 1V portable CLINICAL HISTORY: hyponatremia. COMPARISON STUDY: No previous studies for comparison. FINDINGS: Patient is mildly rotated. This likely accounts for slight asymmetric right lung opacity. Lung volumes are normal. Lungs are clear. No pulmonary nodules are noted although sensitivity is diminished given radiographic technique. There is no pneumothorax or pleural effusion. Cardiac size is normal. Mediastinal contours are normal. There is no evidence for pulmonary edema. IMPRESSION: No acute cardiopulmonary findings. ACT 112: Negative or not required by law. Electronically signed by: Jamie Jc M.D. 05/15/2022 6:[address] 05/16/22 07:[address] DOSE: 823.94 mGycm HISTORY: Stroke like symptoms. Follow up left temporal parietal lobe infarct. TECHNIQUE: Multiaxial CT images of the head were performed without the use of intravenous contrast. Automated exposure control was utilized for this study. A dose lowering technique was utilized adhering to the principles of ALARA. Comparison: Head CT 05/15/2022. Findings: The paranasal sinuses and mastoid air cells are clear. The calvarium and skull base are intact. There is an old left COMPLIANCE LEAD territory infarct again noted. No significant change in the focal hypodense area within the left temporal/parietal lobe consistent with an acute to subacute infarct. This is best seen on image 18. No evidence for hemorrhagic transformation at this time. Areas of questionable increased density within the left-sided infarct likely represent residual normal cortex. Impression: 1. No significant change in the left temporal/parietal lobe infarct. 2. Old left COMPLIANCE LEAD territory infarct again noted. 3. No acute intracranial hemorrhage. ACT 112: Negative or not required by law. Electronically signed by: Jones Vazquez M.D. 05/16/2022 9:34 AM
--- NOTE | 2022-05-17 17:30 | Hospitalist Progress Note ---
Date of Service May 17, 2022 Assessment & Plan (1) Encephalopathy: Plan: Possible metabolic encephalopathy secondary to hyponatremia, psych meds? Recent acute CVA, left MCA (April 2022) History of recurrent stroke History of schizoaffective disorder/anxiety/mood disorder, unknown status Patient brought into the ER from the [facility], for worsening confusion at the [facility] CT head: 1. Acute infarct of the left temporal parietal lobe. 2. Chronic left occipital infarct. 3. No acute intracranial hemorrhage or midline shift. Urine drug screen: Positive marijuana-patient's mother reports patient received marijuana from their neighbor prior to being admitted to the [facility] Patient is calm and cooperative Has expressive aphasia, but follows all commands, able to perform tasks independently Neurologist consulted Recommended: Brain MRI, unable to be performed Repeat CT head: 1. No significant change in the left temporal/parietal lobe infarct. 2. Old left FIELD ADVISOR territory infarct again noted. 3. No acute intracranial hemorrhage. Recommend GABY-cardiology consulted --> GABY pending Recommend hypercoagulable [id number], follow Continue aspirin, atorvastatin Blood pressure control with amlodipine Psychiatrist also consulted One-to-one observation while admitted Hold Effexor As needed Zyprexa -- Dr. Donahue tried to contact the [facility] for more information regarding patient's psych meds Mild hyponatremia Improved from 130, to 134 with IV fluids Pruritic rash involving patient's extremities and trunk likely scabies infestation --Continue permethrin hypertension, elevated upon arrival at the ER -- Amlodipine increased to 5 mg p.o. daily Carvedilol 3.125 mg p.o. 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 Seen resting in bed, sleeping but easily awakened Comfortable cooperative Still has significant dysarthria But few words understandable Able to perform activities of daily living independently No chest pain, shortness of breath, headaches, pain Appetite is good Review of Systems Review of Systems: all noted and negative except for above Physical Exam Physical Exam: General-seems to be oriented, trying to speak in sentences with no effort or accessory muscle use Eyes- anicteric Neck- no JVD Lungs- clear breath sounds bilaterally, no rales/wheezes Heart- normal rate, regular rhythm; no murmurs Abdomen- normal bowel sounds, nondistended, soft, nontender Extremities- no pretibial edema, no calf tenderness Neuro- alert, seems to be oriented, has significant dysarthria Otherwise no new gross focal neurologic Skin- warm & dry Results & Data Results & Data ([facility]) Vital Signs (Past 12 Hours) Vital Signs Temp Pulse Pulse Resp BP Pulse Ox O2 Del Method 05/17/22 08:00 90 05/17/22 14:59 36.6 C 91 H 18 132/102 H 96 Room Air 05/17/22 11:00 36.5 C 80 20 151/108 H 98 Room Air 05/17/22 07:16 36.5 C 81 20 154/101 H 96 Room Air all noted and reviewed including below
[2022-05-17] MEDS: ATORVASTATIN 20 MG TAB PO SCH (20:13)
[2022-05-17 20:47] LABS: Marijuana Quant, GCMS Urine 32 ng/mL (<5)
[2022-05-18] MEDS: OLANZapine 10 MG/2.1 ML SDV IM PRN (01:28)
[2022-05-18] MEDS: ACETAMINOPHEN 325 MG TAB PO PRN ×2 (06:01→19:47)
[2022-05-18] MEDS ORDERED: BENZOCAINE/TETRACAIN/BUTAM 50 APPLN/5 GM CAN EXT ONE (07:43)
--- NOTE | 2022-05-18 08:24 | History & Physical Bridge Note ---
Date of Service May 18, 2022 History & Physical Bridge Note I have examined the patient, reviewed the History & Physical and in the interval since the performance of the History & Physical I have noted the following changes of clinical significance: no changes noted
--- NOTE | 2022-05-18 09:07 | Post Operative Brief Note ---
Cardiology Brief Post Op Date of Surgery May 18, 2022 Pre & Post Diagnosis Operation Date: 05/18/22 08:00 Preprocedure diagnosis: Recurrent stroke, rule out cardiac source of embolism Post procedure diagnosis: Normal transesophageal echocardiogram, no cardiac source of embolism identified Procedure Transesophageal echocardiogram procedure: After informed consent was obtained and a timeout was performed the patient was sedated with the assistance of the anesthesia service receiving a total of 240 mg of IV propofol and 100 mg of IV lidocaine. The left ventricular ejection fraction was normal, 60-65%. There are no valvular vegetations. The interatrial septum is intact without evidence of PFO or atrial septal defect as demonstrated with the administration of agitated saline contrast. Visualized portion of the descending thoracic aorta, aortic arch, proximal ascending aorta revealed no evidence of significant atherosclerosis. Oxygraph Operator DO Assistant Trista Miguel Estimated Blood Loss 0 Findings Consistent with Post-Op Diagnosis as noted avbove Anesthesia Type MAC
--- NOTE | 2022-05-18 09:11 | Cardiology Progress Note ---
Date of Service May 18, 2022 Assessment & Plan (1) Aphasia as late effect of cerebrovascular accident: (2) History of multiple strokes: (3) Schizoaffective disorder: (4) HTN (hypertension): Plan GABY revealed no cardiac source of embolism, with no valvular vegetations, intact interatrial septum, and no significant atherosclerosis in the visualized portion of the thoracic aorta. Hypercoagulable work-up obtained, results pending. Homocystine level mildly elevated, consider folic acid supplementation. As noted, stroke risks include hypertension, cigarette smoking, estrogen supplementation. Recommend outpatient long-term quality assurance monitor, perhaps 14-day Zio patch, or 30-day mobile outpatient cardiac quality assurance monitor, which can be placed at time of outpatient follow up. Perhaps would be reasonable for pt to transition his cardiology care to [facility] upon discharge since that is closer to home. Continue aspirin, amlodipine, carvedilol, atorvastatin, current doses. Continue Lovenox for DVT prophylaxis. With regards to patient's disposition, will need to determine next best course of treatment with regards to prioritizing and need for inpatient psychiatric care or intensive inpatient stroke rehabilitation. I called and updated pt's mother Alessandra, by phone at [phone]. Admission and Anticipated Discharge Date Admission Date: May 15, 2022 Subjective Patient was seen in cardiology follow-up prior to, during, post transesophageal echocardiogram procedure. No events noted overnight. Review of Systems Review of Systems: Other (Unobtainable due to patient's expressive aphasia) Physical Exam Constitutional: WD/WN, vitals as above Respiratory: normal respiratory effort, lungs clear to auscultation Cardiovascular: RRR, no murmur, no edema Gastrointestinal (Abdomen): normal bowel sounds, soft, nontender, no hepatosplenomegaly Neurologic: PERRL, EOMI, accommodation nl, no face palsy, no dysarthria Results & Data ([facility]) Vital Signs (Past 12 Hours) Vital Signs Temp Pulse Pulse Resp BP Pulse Ox O2 Del Method 05/18/22 08:55 95 H 20 104/82 95 Oxymask 05/18/22 07:00 127 H 05/18/22 07:36 36.5 C 104 H 20 128/97 93 Room Air 05/18/22 03:44 36.6 C 100 H 18 178/111 H 94 Room Air 05/17/22 23:00 94 H 05/17/22 23:00 37.0 C 90 18 160/102 H 96 Room Air O2 Flow Rate 05/18/22 08:55 4 05/18/22 07:00 05/18/22 07:36 05/18/22 03:44 05/17/22 23:00 05/17/22 23:00
--- NOTE | 2022-05-18 09:14 | Anesthesiology Progress Note ---
Date of Service May 18, 2022 Anesthesia Post Procedure Vital Signs Vital Signs: Temp Pulse Pulse Resp BP Pulse Ox O2 Del Method 05/18/22 09:12 97 H 20 102/66 92 Room Air 05/18/22 08:55 95 H 20 104/82 95 Oxymask 05/18/22 07:00 127 H 05/18/22 07:36 36.5 C 104 H 20 128/97 93 Room Air 05/18/22 03:44 36.6 C 100 H 18 178/111 H 94 Room Air 05/17/22 23:00 94 H 05/17/22 23:00 37.0 C 90 18 160/102 H 96 Room Air 05/17/22 18:57 36.7 C 103 H 18 155/109 H 95 Room Air 05/17/22 14:59 36.6 C 91 H 18 132/102 H 96 Room Air 05/17/22 11:00 36.5 C 80 20 151/108 H 98 Room Air O2 Flow Rate 05/18/22 09:12 05/18/22 08:55 4 05/18/22 07:00 05/18/22 07:36 05/18/22 03:44 05/17/22 23:00 05/17/22 23:00 05/17/22 18:57 05/17/22 14:59 05/17/22 11:00 Transfer of Care Handoff Completed per policy Notes Mental Status: alert / awake / arousable Patient Amnestic to Procedure: Yes Nausea / Vomiting: adequately controlled Pain: adequately controlled Airway Patency, RR, SpO2: stable & adequate BP & HR: stable & adequate Hydration State: stable & adequate Anesthetic Complications: no major complications apparent and Pt Satisfied with anesthetic care
--- NOTE | 2022-05-18 11:40 | Psychiatric Progress Note ---
Date of Service May 18, 2022 Impression / Recommendations Impression 47 yo trans female s/p MCA stroke with expressive aphasia, treated for scabies, increasingly agitated following stroke and then med changes at the [facility] (significant dose reduction in SEroquel, titration of Effexor XR in a patient with schizoaffective disorder (need to clarify type, suspect bipolar type vs depressive), and/or side effects to Keppra). 05/18/22: patient has been cooperative with medical work up on med floor, consistently denying SI throughout stay. (1) Schizoaffective disorder: Plan Dr. Pratt updated that can move from 1 -on-1 to q 15 min checks risks/benefits/alternatives reviewed with patient re: Zyprexa over Seroquel, at least acutely as patient prefers/tolerating well here. Will add 5 mg po this hs Zyprexa. disposition depends on medical clearance, patient's willingness to resume 201 vs. rehab candidate. cannot leave hospital AMA without additional safety and aftercare planning if should attempt to leave prior to completion of medical course. 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 Chief Complaint expressive aphasia Review of Systems Notes denies pain, N, V, bolanos, OQUENDO Subjective Subjective Patient was seen & assessed and interval progress reviewed. Has been receiving Zyprexa IM intermittently for restless as only prn ordered and Seroquel (tapered at [facility]) held. BP and P elevated after GABY this am. Still with significant difficulty expressing self but achkowledging questions appropriately, again denies SI/HI/bolanos. Procedures Performed Operation Date: 05/18/22 08:00 Actual Procedures p Echo Transesophageal - Todd Bueno, DO s Echo Doppler Complete - Todd Bueno, DO s Echo Color Flow - Todd Bueno, DO Physical Exam Psychiatric Orientation: alert Apperance: appropriately groomed Eye Contact: good eye contact Motor Behavior: no abnormal motor movements Speech: normal rate/rhythm/volume of speech Affect: euthymic affect Mood: no depressed mood Thought Process: + concrete thought process Suicidal Thoughts: denies suicidal thoughts Homicidal Thoughts: denies homicidal thoughts Hallucinations: no auditory hallucinations and no visual hallucinations Cognition: attention grossly intact Vital Signs (Past 24 Hours) Last Vital Signs Temp 36.4 C L 05/18/22 11:10 Pulse 118 H 05/18/22 11:10 Resp 16 05/18/22 11:10 BP 167/117 H 05/18/22 11:10 Pulse Ox 93 05/18/22 11:10 O2 Del Method 05/18/22 11:10 O2 Flow Rate 4 05/18/22 08:55 Results & Data ([facility]) Laboratory Results Laboratory Results - last 24 hr 05/15/22 05/16/22 01:40 08:46 Homocysteine 13.0 H U Marijuana THC Carboxy 32 H Drug Screen Comment SEE NOTE Current Inpatient Medications Current Inpatient Medications: Current Inpatient Medications Acetaminophen (Acetaminophen 325 Mg Tab) 650 mg PO Q4H PRN PRN Reason: Pain Stop: 06/14/22 05:48 Last Admin: 05/18/22 06:01 Dose: 650 mg Amlodipine Besylate (Amlodipine Besylate 5 Mg Tab) 5 mg PO QAM [facility] Stop: 06/16/22 08:59 Last Admin: 05/17/22 10:19 Dose: 5 mg Aspirin (Aspirin 81 Mg Ectab) 81 mg PO QAM DILAN Stop: 06/14/22 08:59 Last Admin: 05/17/22 10:19 Dose: 81 mg Atorvastatin Calcium (Atorvastatin 20 Mg Tab) 20 mg PO HS [facility] Stop: 06/14/22 20:59 Last Admin: 05/17/22 20:13 Dose: 20 mg Carvedilol (Carvedilol 3.125 Mg Tab) 3.125 mg PO BID [facility] Stop: 06/15/22 11:44 Last Admin: 05/17/22 20:13 Dose: 3.125 mg Enoxaparin Sodium (Enoxaparin Inj 40 Mg/0.4 Ml Syr) 40 mg SQ QAM DILAN Stop: 06/14/22 08:59 Last Admin: 05/17/22 10:20 Dose: 40 mg Hydrocortisone (Hydrocortisone 1% Crm 30 Gm Tube) 1 appln EXT TID DILAN Stop: 06/14/22 08:59 Last Admin: 05/17/22 20:13 Dose: 1 appln Promethazine HCl 12.5 mg/ (Sodium Chloride) 50.5 mls @ 202 mls/hr IV Q6H PRN PRN Reason: Nausea And Vomiting Stop: 06/14/22 05:48 Linaclotide (Linaclotide 145 Mcg Capsule) 290 mcg PO DAILY DILAN Stop: 06/14/22 08:59 Last Admin: 05/17/22 10:20 Dose: 290 mcg Loratadine (Loratadine 10 Mg Tab) 10 mg PO QAM DILAN Stop: 06/15/22 08:59 Last Admin: 05/17/22 10:19 Dose: 10 mg Mupirocin (Mupirocin 2% Oint 22 Gm Tube) 1 appln TOP BID DILAN Stop: 06/14/22 08:59 Last Admin: 05/17/22 20:13 Dose: 1 appln Olanzapine (Olanzapine 10 Mg/2.1 Ml Sdv) 5 mg IM Q6H PRN PRN Reason: Anxiety/Agitation Stop: 06/14/22 03:22 Last Admin: 05/18/22 01:28 Dose: 5 mg Olanzapine (Olanzapine 5 Mg Tablet) 5 mg PO HS [facility] Stop: 06/17/22 20:59
[2022-05-18] MEDS: ASPIRIN 81 MG ECTAB PO SCH (12:28)
[2022-05-18] MEDS: LORATADINE 10 MG TAB PO SCH (12:28)
[2022-05-18] MEDS: carvediloL 3.125 MG TAB PO SCH ×2 (12:28→21:21)
[2022-05-18] MEDS: LINACLOTIDE 145 MCG CAPSULE PO SCH (12:28)
[2022-05-18] MEDS: amLODIPine BESYLATE 5 MG TAB PO SCH (12:28)
[2022-05-18] MEDS: HYDROCORTISONE 1% CRM 30 GM TUBE EXT SCH ×3 (12:29→21:20)
[2022-05-18] MEDS: MUPIROCIN 2% OINT 22 GM TUBE TOP SCH ×2 (12:29→21:20)
[2022-05-18] MEDS: ENOXAPARIN INJ 40 MG/0.4 ML SYR SQ SCH (12:29)
--- NOTE | 2022-05-18 12:46 | Hospitalist Progress Note ---
Date of Service May 18, 2022 Assessment & Plan (1) Encephalopathy: Plan: Possible metabolic encephalopathy secondary to hyponatremia, psych meds? Recent acute CVA, left MCA (April 2022) History of recurrent stroke History of schizoaffective disorder/anxiety/mood disorder, unknown status Patient brought into the ER from the [facility], for worsening confusion at the [facility] 1) Metabolic encephalopathy, resolved 2) Hx of Recurrent Stroke CT head on admission On 05/14: 1. Acute infarct of the left temporal parietal lobe. 2. Chronic left occipital infarct. 3. No acute intracranial hemorrhage or midline shift. Repeat CT scan on 05/16 showed no acute changes. Urine drug screen:Marijuana TEEno cardiac source of emboli identified. No significant atheromatous disease in proximal ascending aorta, aortic arch and descending thoracic aorta Telemetry shows sinus tachycardia; no arrhythmia noted since admission. Plan: Mentation is back to baseline. Encephalopathy resolved. Continue on aspirin 81 mg and Lipitor at bedtime for secondary stroke prevention as per neurology. Estrogen replacement therapy stopped due to increase the risk of ischemic cerebrovascular accident. Hypercoagulable work-up sent; to follow-up in neurology clinic. 3) Schizoaffective disorder: Plan: Psychiatry on board. Can be moved from one-to-one to every 15 checks. Discussed with nursing; does not feel comfortable removing one-to-one due to risks of fall. Zyprexa added. Effexor hold 4) Mild hyponatremia Improved from 130, to 134 with IV fluids 5) Scabies infestation Pruritic rash involving patient's extremities and trunk --Continue permethrin 6) Hypertension -- Amlodipine increased to 5 mg p.o. daily Carvedilol 3.125 mg p.o. twice daily added 7) Hyperlipidemia on statin Rx Male to female transgender person, --patient transdermal estrogen resumed at the [facility] -- Hold estrogen per neurology service history IVDU prediabetes, hemoglobin A1c of 5.8 hemoglobin A1c of 5.8 last April 2022 ongoing tobacco abuse hx HCV unknown status DVT prophylaxis per Lovenox subcu Full code Bone in place; plan to remove Bone and do trial of void. Disposition Tentative discharge tomorrow back to [facility] Admission and Anticipated Discharge Date Admission Date: May 15, 2022 Subjective Patient patient seen and examined after GABY. She was sitting up on the chair at the side of the bed. She was comfortable; not in distress. She complained of sore throat following the procedure. She was alert, oriented x3. Telemetry shows sinus tachycardia Review of Systems Review of Systems: All systems reviewed & are unremarkable except as noted in Subjective Physical Exam Physical Exam: General-Awake, alert oriented to self. Not agitated. Mixed a phasia. Able to follow commands properly. Eyes- anicteric Neck- no JVD Lungs- clear breath sounds bilaterally, no rales/wheezes Heart- normal rate, regular rhythm; no murmurs Abdomen- normal bowel sounds, nondistended, soft, nontender Extremities- no pretibial edema, no calf tenderness Neuro- alert, seems to be oriented, has significant Aphasia. With word salad Otherwise no new gross focal neurologic Skin- warm & dry Results & Data Results & Data ([facility]) Vital Signs (Past 12 Hours) Vital Signs Temp Pulse Pulse Resp BP Pulse Ox O2 Del Method 05/18/22 11:10 36.4 C L 118 H 16 167/117 H 93 Room Air 05/18/22 09:12 97 H 20 102/66 92 Room Air 05/18/22 08:55 95 H 20 104/82 95 Oxymask 05/18/22 07:00 127 H 05/18/22 07:36 36.5 C 104 H 20 128/97 93 Room Air 05/18/22 03:44 36.6 C 100 H 18 178/111 H 94 Room Air O2 Flow Rate 05/18/22 11:10 05/18/22 09:12 05/18/22 08:55 4 05/18/22 07:00 05/18/22 07:36 05/18/22 03:44 Laboratory Results Laboratory Results WBC 7.02 K/ul (4.8-10.8) 05/16/22 06:12 RBC 5.37 M/uL (4.63-6.08) 05/16/22 06:12 Hgb 17.7 g/dl (14.0-18.0) 05/16/22 06:12 Hct 49.8 % (40.1-51.0) 05/16/22 06:12 MCV 92.7 fL (80.0-100.0) 05/16/22 06:12 MCH 33.0 pg (25.0-34.0) 05/16/22 06:12 MCHC 35.5 g/dL (32.0-36.0) 05/16/22 06:12 RDW Std Deviation 41.2 fL (36.4-46.3) 05/16/22 06:12 RDW Coeff of Grazyna 12.0 % (11.5-14.5) 05/16/22 06:12 Plt Count 186 K/uL (130-400) 05/16/22 06:12 MPV 11.5 fL (9.4-12.4) 05/16/22 06:12 Immature Gran % (Auto) 0.9 % 05/16/22 06:12 Neut % (Auto) 52.6 % 05/16/22 06:12 Lymph % (Auto) 30.1 % 05/16/22 06:12 [place] % (Auto) 12.3 % 05/16/22 06:12 Eos % (Auto) 3.0 % 05/16/22 06:12 Baso % (Auto) 1.1 % 05/16/22 06:12 Neut # (Auto) 3.70 K/uL (1.4-6.5) 05/16/22 06:12 Lymph # (Auto) 2.11 K/uL (1.2-3.4) 05/16/22 06:12 [place] # (Auto) 0.86 K/uL (0.24-0.82) H 05/16/22 06:12 Eos # (Auto) 0.21 K/uL (0-0.50) 05/16/22 06:12 Baso # (Auto) 0.08 K/uL (0-0.2) 05/16/22 06:12 Immature Gran # (Auto) 0.06 K/uL (0.00-0.02) H 05/16/22 06:12 PT 11.7 Seconds (9.0-12.0) 05/15/22 02:23 INR 1.1 (0.9-1.1) 05/15/22 02:23 APTT 28.3 Seconds (21.0-31.0) 05/15/22 02:23 PTT Ratio 1.0 05/15/22 02:23 Sodium 134 mmol/L (136-145) L 05/16/22 06:12 Potassium 3.6 mmol/L (3.5-5.1) 05/16/22 06:12 Chloride 103 mmol/L (98-107) 05/16/22 06:12 Carbon Dioxide 21 mmol/L (21-32) 05/16/22 06:12 Anion Gap 10 (3-11) 05/16/22 06:12 BUN 12 mg/dl (6-23) 05/16/22 06:12 Creatinine 0.96 mg/dl (0.6-1.4) 05/16/22 06:12 Est Cr Clr Drug Dosing 125.6 ml/min 05/16/22 06:12 Est GFR ( Amer) 110.2 ml/min 05/16/22 06:12 Est GFR (Non-Af Amer) 95.1 ml/min 05/16/22 06:12 BUN/Creatinine Ratio 12.5 (10-20) 05/16/22 06:12 Glucose 190 mg/dl (70-99(Fasting)) H 05/16/22 06:12 Calcium 9.0 mg/dl (8.5-10.1) 05/16/22 06:12 Magnesium 2.1 mg/dl (1.7-2.4) 05/15/22 01:21 Total Bilirubin 1.1 mg/dl (0.2-1.0) H 05/15/22 01:21 AST 27 U/L (13-39) 05/15/22 01:21 ALT 41 U/L (7-52) 05/15/22 01:21 Alkaline Phosphatase 65 U/L (34-104) 05/15/22 01:21 Ammonia 26.0 umol/L (18-72) 05/15/22 04:02 Troponin I High Sens 3.8 pg/ml (0-20) 05/15/22 01:21 Total Protein 7.2 gm/dl (6.0-8.3) 05/15/22 01:21 Albumin 4.4 gm/dl (3.4-5.0) 05/15/22 01:21 Globulin 2.8 gm/dl (2.5-4.0) 05/15/22 01:21 Albumin/Globulin Ratio 1.6 (0.9-2) 05/15/22 01:21 Homocysteine 13.0 umol/L (<11.4) H 05/16/22 08:46 TSH 0.858 uIu/ml (0.300-4.500) 05/15/22 04:02 Urine Color Dark Yellow 05/15/22 Unknown Urine Appearance Clear (Clear) 05/15/22 Unknown Urine pH 5.5 (4.5-7.5) 05/15/22 Unknown Ur Specific [place] 1.022 (1.000-1.030) 05/15/22 Unknown Urine Protein Negative (Negative) 05/15/22 Unknown Urine Glucose (UA) Negative (Negative) 05/15/22 Unknown Urine Ketones 1+ (Negative) H 05/15/22 Unknown Urine Blood Negative (Negative) 05/15/22 Unknown Urine Nitrite Negative (Negative) 05/15/22 Unknown Urine Bilirubin Negative (Negative) 05/15/22 Unknown Urine Urobilinogen Negative (Negative) 05/15/22 Unknown Ur Leukocyte Esterase Negative (Negative) 05/15/22 Unknown Urine Opiates Screen Neg (Neg) 05/15/22 01:40 Ur Methadone, Qual Neg (Neg) 05/15/22 01:40 Urine Barbiturates Neg (Neg) 05/15/22 01:40 Ur Phencyclidine (PCP) Neg (Neg) 05/15/22 01:40 U Amphetamin/Meth Scrn Neg (Neg) 05/15/22 01:40 MDMA (Ecstasy) Screen Neg (Neg) 05/15/22 01:40 U Benzodiazepines Scrn Neg (Neg) 05/15/22 01:40 Ur Cocaine Metabolite Neg (Neg) 05/15/22 01:40 U Marijuana (THC) Screen Pos (Neg) H 05/15/22 01:40 U Marijuana THC Carboxy 32 ng/mL (<5) H 05/15/22 01:40 Drug Screen Comment SEE NOTE 05/15/22 01:40 SARS-CoV-2, RNA, NAAT NEGATIVE (NEGATIVE) 05/15/22 00:35 Impressions Chest X-Ray 05/15/22 02:27 XR chest 1V portable CLINICAL HISTORY: hyponatremia. COMPARISON STUDY: No previous studies for comparison. FINDINGS: Patient is mildly rotated. This likely accounts for slight asymmetric right lung opacity. Lung volumes are normal. Lungs are clear. No pulmonary nodules are noted although sensitivity is diminished given radiographic technique. There is no pneumothorax or pleural effusion. Cardiac size is normal. Mediastinal contours are normal. There is no evidence for pulmonary edema. IMPRESSION: No acute cardiopulmonary findings. ACT 112: Negative or not required by law. Electronically signed by: Jamie Jc M.D. 05/15/2022 6:[address] 05/16/22 07:[address] DOSE: 823.94 mGycm HISTORY: Stroke like symptoms. Follow up left temporal parietal lobe infarct. TECHNIQUE: Multiaxial CT images of the head were performed without the use of intravenous contrast. Automated exposure control was utilized for this study. A dose lowering technique was utilized adhering to the principles of ALARA. Comparison: Head CT 05/15/2022. Findings: The paranasal sinuses and mastoid air cells are clear. The calvarium and skull base are intact. There is an old left [employer] territory infarct again noted. No significant change in the focal hypodense area within the left temporal/parietal lobe consistent with an acute to subacute infarct. This is best seen on image 18. No evidence for hemorrhagic transformation at this time. Areas of questionable increased density within the left-sided infarct likely represent residual normal cortex. Impression: 1. No significant change in the left temporal/parietal lobe infarct. 2. Old left [employer] territory infarct again noted. 3. No acute intracranial hemorrhage. ACT 112: Negative or not required by law. Electronically signed by: Jones Vazquez M.D. 05/16/2022 9:34 AM
[2022-05-18] MEDS ORDERED: Flu Vaccine (Fluarix) 0.5mL SYR (Standard Dose) IM ONE (14:30)
[2022-05-18] MEDS ORDERED: OLANZapine 5 MG TABLET PO SCH (21:00)
[2022-05-18] MEDS: ATORVASTATIN 20 MG TAB PO SCH (21:20)
[2022-05-19 06:45] LABS: Basophils # (auto) 0.06 K/uL (0-0.2); Basophils % (auto) 0.8 %; Eosinophils # (auto) 0.24 K/uL (0-0.50); Eosinophils % (auto) 3.2 %; Immature Granulocytes # (auto) 0.04 K/uL (0.00-0.02); Immature Granulocytes % (auto) 0.5 %; Lymphocytes # (auto) 1.56 K/uL (1.2-3.4); Lymphocytes % (auto) 20.8 %; Mean Corpuscular Hemoglobin 32.9 pg (25.0-34.0); Mean Corpuscular Hgb Conc 35.6 g/dL (32.0-36.0); Mean Corpuscular Volume 92.6 fL (80.0-100.0); Mean Platelet Volume 11.1 fL (9.4-12.4); Monocytes # (auto) 1.26 K/uL (0.24-0.82); Monocytes % (auto) 16.8 %; Neutrophils # (auto) 4.35 K/uL (1.4-6.5); Neutrophils % (auto) 57.9 %; Platelet Count 128 K/uL (130-400); Polychromasia 1+; RDW Standard Deviation 41.2 fL (36.4-46.3); Red Blood Count 4.86 M/uL (4.63-6.08); White Blood Count 7.51 K/ul (4.8-10.8)
[2022-05-19 07:01] LABS: BUN Creatinine Ratio 14.7 (10-20); Calcium 9.2 mg/dl (8.5-10.1); Chol HDL Ratio 3.3 (0-5); Creatinine Clr Calc Pharmacy 163.2 ml/min; Est GFR (African American) 128.4 ml/min; Est GFR (Non-African American) 110.8 ml/min; Potassium 3.5 mmol/L (3.5-5.1)
[2022-05-19] MEDS: amLODIPine BESYLATE 5 MG TAB PO SCH (08:05)
[2022-05-19] MEDS: ASPIRIN 81 MG ECTAB PO SCH (08:06)
[2022-05-19] MEDS: carvediloL 3.125 MG TAB PO SCH (08:07)
[2022-05-19] MEDS: LINACLOTIDE 145 MCG CAPSULE PO SCH (08:07)
[2022-05-19] MEDS: LORATADINE 10 MG TAB PO SCH (08:07)
[2022-05-19] MEDS: ENOXAPARIN INJ 40 MG/0.4 ML SYR SQ SCH (08:07)
[2022-05-19] MEDS: MUPIROCIN 2% OINT 22 GM TUBE TOP SCH ×2 (08:08→20:33)
[2022-05-19] MEDS: HYDROCORTISONE 1% CRM 30 GM TUBE EXT SCH ×3 (08:08→20:33)
--- NOTE | 2022-05-19 11:12 | Communication Note ---
Date of Service: May 19, 2022 patient took PO Zyprexa last pm, did help with anxiety/restlessness, sleep was still fitful. Given prehospital dosing of Seroquel, will increase Zyprexa 10 mg daily. per CM return to [facility] is anticipated soon. repeat BP and P improved from am.
[2022-05-19] MEDS ORDERED: carvediloL 3.125 MG TAB PO ONE (11:29)
--- NOTE | 2022-05-19 11:31 | Cardiology Progress Note ---
Date of Service May 19, 2022 Assessment & Plan (1) Aphasia as late effect of cerebrovascular accident: (2) History of multiple strokes: (3) Schizoaffective disorder: (4) HTN (hypertension): Plan GABY revealed no cardiac source of embolism, with no valvular vegetations, intact interatrial septum, and no significant atherosclerosis in the visualized portion of the thoracic aorta. Hypercoagulable work-up obtained, results pending. Homocystine level mildly elevated, consider folic acid supplementation. As noted, stroke risks include hypertension, cigarette smoking, estrogen supplementation. Recommend outpatient long-term laboratory monitor, perhaps 14-day Zio patch, or 30-day mobile outpatient cardiac media monitor, which can be placed at time of outpatient follow up. Perhaps would be reasonable for pt to transition his cardiology care to [facility] upon discharge since that is closer to home. Continue aspirin, amlodipine, carvedilol, atorvastatin. Increase carvedilol dose to 6.25 mg twice daily for additional blood pressure and heart rate control.. Continue Lovenox for DVT prophylaxis. Admission and Anticipated Discharge Date Admission Date: May 15, 2022 Subjective Patient seen in cardiology follow-up. No current complaints. Sinus tachycardia noted yesterday afternoon, overnight and again this morning, most recent heart rate 99-110 bpm. Review of Systems Review of Systems: Comprehensive review of systems unobtainable due to the patient's aphasia. Physical Exam Constitutional: WD/WN, vitals as above Respiratory: normal respiratory effort, lungs clear to auscultation Cardiovascular: RRR, no murmur, no edema Gastrointestinal (Abdomen): normal bowel sounds, soft, nontender, no hepatosplenomegaly Neurologic: PERRL, EOMI, accommodation nl, no face palsy, no dysarthria Results & Data ([facility]) Vital Signs (Past 12 Hours) Vital Signs Temp Pulse Pulse Pulse Resp BP Pulse Ox 05/19/22 11:08 36.5 C 106 H 20 123/79 93 05/19/22 08:00 109 H 05/19/22 07:00 36.8 C 119 H 18 153/103 H 94 05/19/22 05:00 05/19/22 03:53 36.8 C 89 18 115/70 93 Pulse Ox O2 Del Method O2 Del Method 05/19/22 11:08 Room Air 05/19/22 08:00 05/19/22 07:00 Room Air 05/19/22 05:00 95 Room Air 05/19/22 03:53 Room Air
--- NOTE | 2022-05-19 15:30 | Hospitalist Progress Note ---
Date of Service May 19, 2022 Assessment & Plan (1) Encephalopathy: Plan: Possible metabolic encephalopathy secondary to hyponatremia, psych meds? Recent acute CVA, left MCA (April 2022) History of recurrent stroke History of schizoaffective disorder/anxiety/mood disorder, unknown status Patient brought into the ER from the [facility], for worsening confusion at the [facility], [place] 1) Metabolic encephalopathy, resolved 2) Hx of Recurrent Stroke CT head on admission On 05/14: 1. Acute infarct of the left temporal parietal lobe. 2. Chronic left occipital infarct. 3. No acute intracranial hemorrhage or midline shift. Repeat CT scan on 05/16 showed no acute changes. Urine drug screen:Marijuana TEEno cardiac source of emboli identified. No significant atheromatous disease in proximal ascending aorta, aortic arch and descending thoracic aorta Telemetry shows sinus tachycardia; no arrhythmia noted since admission. Plan: Mentation is back to baseline. Encephalopathy resolved. Continue on aspirin 81 mg and Lipitor at bedtime for secondary stroke prevention as per neurology. Estrogen replacement therapy stopped due to increase the risk of ischemic cerebrovascular accident. Hypercoagulable work-up sent; to follow-up in neurology clinic. 3) Schizoaffective disorder: Plan: Psychiatry on board. Can be moved from one-to-one to every 15 checks. Discussed with nursing; does not feel comfortable removing one-to-one due to risks of fall. Zyprexa added; increased to 10mg daily. Effexor hold 4) Mild hyponatremia Improved from 130, to 133 with IV fluids 5) Scabies infestation Pruritic rash involving patient's extremities and trunk improved 6) Hypertension -- Amlodipine increased to 5 mg p.o. daily Coreg added and dose increased to 6.25 due to tachycardia. 7) Hyperlipidemia on statin Rx Male to female transgender person, --patient transdermal estrogen resumed at the [facility] -- Hold estrogen per neurology service history IVDU prediabetes, hemoglobin A1c of 5.8 hemoglobin A1c of 5.8 last April 2022 ongoing tobacco abuse hx HCV unknown status DVT prophylaxis per Lovenox subcu Full code Disposition: Patient was brought from [facility] [place]. Her mentation is back to her baseline. Discussed with Dipika from admission in [facility] [place]. She states that patient has rehab requirement due to her aphasia and her psych issues have improved. So, facility won't be taking her back. Phone number left for medical coding auditor for call back; awaiting call back. Patient will require rehab placement if not accepted at the facility. CM on board. PT OT ordered Admission and Anticipated Discharge Date Admission Date: May 15, 2022 Subjective Patient seen and examined at bedside. She is comfortably sitting up on the chair; not in distress. She is able to follow some commands but is difficult to understand her due to word salad Telemetry shows sinus tachycardia. Review of Systems Review of Systems: All systems reviewed & are unremarkable except as noted in Subjective Physical Exam Physical Exam: General-Awake, alert oriented to self. Not agitated. Mixed aphasia. Able to follow commands properly. Eyes- anicteric Neck- no JVD Lungs- clear breath sounds bilaterally, no rales/wheezes Heart- normal rate, regular rhythm; no murmurs Abdomen- normal bowel sounds, nondistended, soft, nontender Extremities- no pretibial edema, no calf tenderness Neuro- alert, seems to be oriented, has significant Aphasia. With word salad Otherwise no new gross focal neurologic Skin- warm & dry Results & Data Results & Data ([facility]) Vital Signs (Past 12 Hours) Vital Signs Temp Pulse Pulse Pulse Resp BP Pulse Ox 05/19/22 15:00 36.8 C 100 H 18 133/85 95 05/19/22 11:08 36.5 C 106 H 20 123/79 93 05/19/22 08:00 109 H 05/19/22 07:00 36.8 C 119 H 18 153/103 H 94 05/19/22 05:00 05/19/22 03:53 36.8 C 89 18 115/70 93 Pulse Ox O2 Del Method O2 Del Method 05/19/22 15:00 Room Air 05/19/22 11:08 Room Air 05/19/22 08:00 05/19/22 07:00 Room Air 05/19/22 05:00 95 Room Air 05/19/22 03:53 Room Air Laboratory Results Laboratory Results WBC 7.51 K/ul (4.8-10.8) 05/19/22 05:42 RBC 4.86 M/uL (4.63-6.08) 05/19/22 05:42 Hgb 16.0 g/dl (14.0-18.0) 05/19/22 05:42 Hct 45.0 % (40.1-51.0) 05/19/22 05:42 MCV 92.6 fL (80.0-100.0) 05/19/22 05:42 MCH 32.9 pg (25.0-34.0) 05/19/22 05:42 MCHC 35.6 g/dL (32.0-36.0) 05/19/22 05:42 RDW Std Deviation 41.2 fL (36.4-46.3) 05/19/22 05:42 RDW Coeff of Grazyna 12.0 % (11.5-14.5) 05/19/22 05:42 Plt Count 128 K/uL (130-400) L 05/19/22 05:42 MPV 11.1 fL (9.4-12.4) 05/19/22 05:42 Immature Gran % (Auto) 0.5 % 05/19/22 05:42 Neut % (Auto) 57.9 % 05/19/22 05:42 Lymph % (Auto) 20.8 % 05/19/22 05:42 [place] % (Auto) 16.8 % 05/19/22 05:42 Eos % (Auto) 3.2 % 05/19/22 05:42 Baso % (Auto) 0.8 % 05/19/22 05:42 Neut # (Auto) 4.35 K/uL (1.4-6.5) 05/19/22 05:42 Lymph # (Auto) 1.56 K/uL (1.2-3.4) 05/19/22 05:42 [place] # (Auto) 1.26 K/uL (0.24-0.82) H 05/19/22 05:42 Eos # (Auto) 0.24 K/uL (0-0.50) 05/19/22 05:42 Baso # (Auto) 0.06 K/uL (0-0.2) 05/19/22 05:42 Immature Gran # (Auto) 0.04 K/uL (0.00-0.02) H 05/19/22 05:42 Polychromasia 1+ 05/19/22 05:42 PT 11.7 Seconds (9.0-12.0) 05/15/22 02:23 INR 1.1 (0.9-1.1) 05/15/22 02:23 APTT 28.3 Seconds (21.0-31.0) 05/15/22 02:23 PTT Ratio 1.0 05/15/22 02:23 Sodium 133 mmol/L (136-145) L 05/19/22 05:42 Potassium 3.5 mmol/L (3.5-5.1) 05/19/22 05:42 Chloride 103 mmol/L (98-107) 05/19/22 05:42 Carbon Dioxide 23 mmol/L (21-32) 05/19/22 05:42 Anion Gap 7 (3-11) 05/19/22 05:42 BUN 11 mg/dl (6-23) 05/19/22 05:42 Creatinine 0.75 mg/dl (0.6-1.4) 05/19/22 05:42 Est Cr Clr Drug Dosing 163.2 ml/min 05/19/22 05:42 Est GFR ( Amer) 128.4 ml/min 05/19/22 05:42 Est GFR (Non-Af Amer) 110.8 ml/min 05/19/22 05:42 BUN/Creatinine Ratio 14.7 (10-20) 05/19/22 05:42 Glucose 130 mg/dl (70-99(Fasting)) H 05/19/22 05:42 Calcium 9.2 mg/dl (8.5-10.1) 05/19/22 05:42 Magnesium 2.1 mg/dl (1.7-2.4) 05/15/22 01:21 Total Bilirubin 1.1 mg/dl (0.2-1.0) H 05/15/22 01:21 AST 27 U/L (13-39) 05/15/22 01:21 ALT 41 U/L (7-52) 05/15/22 01:21 Alkaline Phosphatase 65 U/L (34-104) 05/15/22 01:21 Ammonia 26.0 umol/L (18-72) 05/15/22 04:02 Troponin I High Sens 3.8 pg/ml (0-20) 05/15/22 01:21 Total Protein 7.2 gm/dl (6.0-8.3) 05/15/22 01:21 Albumin 4.4 gm/dl (3.4-5.0) 05/15/22 01:21 Globulin 2.8 gm/dl (2.5-4.0) 05/15/22 01:21 Albumin/Globulin Ratio 1.6 (0.9-2) 05/15/22 01:21 Triglycerides 77 mg/dl (0-150) 05/19/22 05:42 Cholesterol 105 mg/dl (0-200) 05/19/22 05:42 LDL Cholesterol, Calc 58 mg/dl 05/19/22 05:42 VLDL Cholesterol, Calc 15 mg/dl (0-30) 05/19/22 05:42 HDL Cholesterol 32 mg/dl 05/19/22 05:42 Cholesterol/HDL Ratio 3.3 (0-5) 05/19/22 05:42 Homocysteine 13.0 umol/L (<11.4) H 05/16/22 08:46 TSH 0.858 uIu/ml (0.300-4.500) 05/15/22 04:02 Urine Color Dark Yellow 05/15/22 Unknown Urine Appearance Clear (Clear) 05/15/22 Unknown Urine pH 5.5 (4.5-7.5) 05/15/22 Unknown Ur Specific [place] 1.022 (1.000-1.030) 05/15/22 Unknown Urine Protein Negative (Negative) 05/15/22 Unknown Urine Glucose (UA) Negative (Negative) 05/15/22 Unknown Urine Ketones 1+ (Negative) H 05/15/22 Unknown Urine Blood Negative (Negative) 05/15/22 Unknown Urine Nitrite Negative (Negative) 05/15/22 Unknown Urine Bilirubin Negative (Negative) 05/15/22 Unknown Urine Urobilinogen Negative (Negative) 05/15/22 Unknown Ur Leukocyte Esterase Negative (Negative) 05/15/22 Unknown Urine Opiates Screen Neg (Neg) 05/15/22 01:40 Ur Methadone, Qual Neg (Neg) 05/15/22 01:40 Urine Barbiturates Neg (Neg) 05/15/22 01:40 Ur Phencyclidine (PCP) Neg (Neg) 05/15/22 01:40 U Amphetamin/Meth Scrn Neg (Neg) 05/15/22 01:40 MDMA (Ecstasy) Screen Neg (Neg) 05/15/22 01:40 U Benzodiazepines Scrn Neg (Neg) 05/15/22 01:40 Ur Cocaine Metabolite Neg (Neg) 05/15/22 01:40 U Marijuana (THC) Screen Pos (Neg) H 05/15/22 01:40 U Marijuana THC Carboxy 32 ng/mL (<5) H 05/15/22 01:40 Drug Screen Comment SEE NOTE 05/15/22 01:40 SARS-CoV-2, RNA, NAAT NEGATIVE (NEGATIVE) 05/15/22 00:35 Impressions Chest X-Ray 05/15/22 02:27 XR chest 1V portable CLINICAL HISTORY: hyponatremia. COMPARISON STUDY: No previous studies for comparison. FINDINGS: Patient is mildly rotated. This likely accounts for slight asymmetric right lung opacity. Lung volumes are normal. Lungs are clear. No pulmonary nodules are noted although sensitivity is diminished given radiographic technique. There is no pneumothorax or pleural effusion. Cardiac size is normal. Mediastinal contours are normal. There is no evidence for pulmonary edema. IMPRESSION: No acute cardiopulmonary findings. ACT 112: Negative or not required by law. Electronically signed by: Jamie Jc M.D. 05/15/2022 6:[address] 05/16/22 07:[address] DOSE: 823.94 mGycm HISTORY: Stroke like symptoms. Follow up left temporal parietal lobe infarct. TECHNIQUE: Multiaxial CT images of the head were performed without the use of intravenous contrast. Automated exposure control was utilized for this study. A dose lowering technique was utilized adhering to the principles of ALARA. Comparison: Head CT 05/15/2022. Findings: The paranasal sinuses and mastoid air cells are clear. The calvarium and skull base are intact. 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 No significant change in the focal hypodense area within the left temporal/parietal lobe consistent with an acute to subacute infarct. This is best seen on image 18. No evidence for hemorrhagic transformation at this time. Areas of questionable increased density within the left-sided infarct likely represent residual normal cortex. Impression: 1. No significant change in the left temporal/parietal lobe infarct. 2. 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 3. No acute intracranial hemorrhage. ACT 112: Negative or not required by law. Electronically signed by: Jones Vazquez M.D. 05/16/2022 9:34 AM
[2022-05-19] MEDS: ACETAMINOPHEN 325 MG TAB PO PRN ×2 (16:13→23:09)
[2022-05-19] MEDS: OLANZapine 10 MG TAB PO SCH (20:32)
[2022-05-19] MEDS: ATORVASTATIN 20 MG TAB PO SCH (20:32)
[2022-05-19] MEDS: carvediloL 6.25 MG TAB PO SCH (20:33)
[2022-05-20 06:35] LABS: Basophils # (auto) 0.06 K/uL (0-0.2); Basophils % (auto) 1.3 %; Eosinophils # (auto) 0.36 K/uL (0-0.50); Eosinophils % (auto) 7.5 %; Hematocrit (blood only) 43.3 % (40.1-51.0); Hemoglobin 15.3 g/dl (14.0-18.0); Immature Granulocytes # (auto) 0.05 K/uL (0.00-0.02); Lymphocytes # (auto) 2.06 K/uL (1.2-3.4); Lymphocytes % (auto) 42.9 %; Mean Corpuscular Hemoglobin 32.7 pg (25.0-34.0); Mean Corpuscular Hgb Conc 35.3 g/dL (32.0-36.0); Mean Corpuscular Volume 92.5 fL (80.0-100.0); Mean Platelet Volume 11.2 fL (9.4-12.4); Monocytes # (auto) 0.83 K/uL (0.24-0.82); Monocytes % (auto) 17.3 %; Neutrophils # (auto) 1.44 K/uL (1.4-6.5); Platelet Count 148 K/uL (130-400); RDW Coefficient of Variation 12.2 % (11.5-14.5); RDW Standard Deviation 42.1 fL (36.4-46.3); Red Blood Count 4.68 M/uL (4.63-6.08)
[2022-05-20 07:03] LABS: BUN Creatinine Ratio 13.5 (10-20); Calcium 9.3 mg/dl (8.5-10.1); Creatinine Clr Calc Pharmacy 164.4 ml/min; Est GFR (African American) 129.1 ml/min; Est GFR (Non-African American) 111.4 ml/min; Potassium 3.4 mmol/L (3.5-5.1)
[2022-05-20] MEDS: ACETAMINOPHEN 325 MG TAB PO PRN ×3 (09:10→22:06)
[2022-05-20] MEDS: SPIRONOLACTONE 25 MG TAB PO SCH (09:11)
[2022-05-20] MEDS: carvediloL 6.25 MG TAB PO SCH ×2 (09:12→20:45)
[2022-05-20] MEDS: LINACLOTIDE 145 MCG CAPSULE PO SCH (09:12)
[2022-05-20] MEDS: amLODIPine BESYLATE 5 MG TAB PO SCH (09:12)
[2022-05-20] MEDS: LORATADINE 10 MG TAB PO SCH (09:12)
[2022-05-20] MEDS: HYDROCORTISONE 1% CRM 30 GM TUBE EXT SCH ×3 (09:13→20:44)
[2022-05-20] MEDS: ASPIRIN 81 MG ECTAB PO SCH (09:13)
[2022-05-20] MEDS: ENOXAPARIN INJ 40 MG/0.4 ML SYR SQ SCH (09:13)
[2022-05-20] MEDS: MUPIROCIN 2% OINT 22 GM TUBE TOP SCH ×2 (09:14→20:45)
[2022-05-20] MEDS ORDERED: POTASSIUM CHLORIDE CRTAB 20 MEQ TABCR PO STA (10:40)
--- NOTE | 2022-05-20 10:45 | Hospitalist Progress Note ---
Date of Service May 20, 2022 Assessment & Plan (1) Encephalopathy: Plan: Possible metabolic encephalopathy secondary to hyponatremia, psych meds? Recent acute CVA, left MCA (April 2022) History of recurrent stroke History of schizoaffective disorder/anxiety/mood disorder, unknown status Patient brought into the ER from the [facility], for worsening confusion at the [facility] 1) Metabolic encephalopathy, resolved 2) Hx of Recurrent Stroke CT head on admission On 05/14: 1. Acute infarct of the left temporal parietal lobe. 2. Chronic left occipital infarct. 3. No acute intracranial hemorrhage or midline shift. Repeat CT scan on 05/16 showed no acute changes. Urine drug screen:Marijuana TEEno cardiac source of emboli identified. No significant atheromatous disease in proximal ascending aorta, aortic arch and descending thoracic aorta Telemetry shows sinus tachycardia; no arrhythmia noted since admission. Plan: Mentation is back to baseline. Encephalopathy resolved. Continue on aspirin 81 mg and Lipitor at bedtime for secondary stroke prevention as per neurology. Estrogen replacement therapy stopped due to increase the risk of ischemic cerebrovascular accident. Hypercoagulable work-up sent; to follow-up in neurology clinic. 3) Schizoaffective disorder: Plan: Psychiatry on board. Can be moved from one-to-one to every 15 checks. Discussed with nursing; does not feel comfortable removing one-to-one due to risks of fall. Zyprexa added; increased to 10mg daily. Seroquel discontinued. Effexor hold 4) Urinary Retention Trial of void done on 05/18. She started to retain urine again. If postvoid residual is greater than 250 Will replace Bone again. Urinalysis ordered 5) Mild hyponatremia Improved from 130, to 133 with IV fluids 6) Scabies infestation Pruritic rash involving patient's extremities and trunk improved 7) Hypertension -- Amlodipine increased to 5 mg p.o. daily Coreg added and dose increased to 6.25 due to tachycardia. 8) Hyperlipidemia on statin Rx Male to female transgender person, --patient transdermal estrogen resumed at the [facility] -- Hold estrogen per neurology service history IVDU prediabetes, hemoglobin A1c of 5.8 hemoglobin A1c of 5.8 last April 2022 ongoing tobacco abuse hx HCV unknown status DVT prophylaxis per Lovenox subcu Full code Disposition: Patient was brought from [facility]. Her mentation is back to her baseline. Discussed with Dipika from admission in [facility] on 05/19. She states that patient has rehab requirement due to her aphasia and her psych issues have improved. So, facility won't be taking her back. Phone number left for special forces medical sergeant for call back; awaiting call back. Patient will require rehab placement if not accepted at the facility. CM on board. PT OT ordered Admission and Anticipated Discharge Date Admission Date: May 15, 2022 Subjective Patient seen and examined at bedside. She is lying down on the bed comfortably; not in any distress. She required straight cath for urinary retention twice overnight. Review of Systems Review of Systems: All systems reviewed & are unremarkable except as noted in Subjective Physical Exam Physical Exam: General-Awake, alert oriented to self. Not agitated. Mixed aphasia. Able to follow commands properly. Eyes- anicteric Neck- no JVD Lungs- clear breath sounds bilaterally, no rales/wheezes Heart- normal rate, regular rhythm; no murmurs Abdomen- normal bowel sounds, nondistended, soft, nontender Extremities- no pretibial edema, no calf tenderness Neuro- alert, seems to be oriented, has significant Aphasia. With word salad Otherwise no new gross focal neurologic Skin- warm & dry Results & Data Results & Data ([facility]) Vital Signs (Past 12 Hours) Vital Signs Temp Pulse Pulse Resp BP Pulse Ox O2 Del Method 05/20/22 08:30 92 H 05/20/22 05:00 05/20/22 02:42 36.6 C 84 18 116/95 96 Room Air 05/19/22 23:19 99 H 05/19/22 22:44 36.9 C 92 H 20 122/85 95 Room Air O2 Del Method 05/20/22 08:30 05/20/22 05:00 Room Air 05/20/22 02:42 05/19/22 23:19 05/19/22 22:44 Laboratory Results Laboratory Results WBC 4.80 K/ul (4.8-10.8) 05/20/22 05:47 RBC 4.68 M/uL (4.63-6.08) 05/20/22 05:47 Hgb 15.3 g/dl (14.0-18.0) 05/20/22 05:47 Hct 43.3 % (40.1-51.0) 05/20/22 05:47 MCV 92.5 fL (80.0-100.0) 05/20/22 05:47 MCH 32.7 pg (25.0-34.0) 05/20/22 05:47 MCHC 35.3 g/dL (32.0-36.0) 05/20/22 05:47 RDW Std Deviation 42.1 fL (36.4-46.3) 05/20/22 05:47 RDW Coeff of Grazyna 12.2 % (11.5-14.5) 05/20/22 05:47 Plt Count 148 K/uL (130-400) 05/20/22 05:47 MPV 11.2 fL (9.4-12.4) 05/20/22 05:47 Immature Gran % (Auto) 1.0 % 05/20/22 05:47 Neut % (Auto) 30.0 % 05/20/22 05:47 Lymph % (Auto) 42.9 % 05/20/22 05:47 [place] % (Auto) 17.3 % 05/20/22 05:47 Eos % (Auto) 7.5 % 05/20/22 05:47 Baso % (Auto) 1.3 % 05/20/22 05:47 Neut # (Auto) 1.44 K/uL (1.4-6.5) 05/20/22 05:47 Lymph # (Auto) 2.06 K/uL (1.2-3.4) 05/20/22 05:47 [place] # (Auto) 0.83 K/uL (0.24-0.82) H 05/20/22 05:47 Eos # (Auto) 0.36 K/uL (0-0.50) 05/20/22 05:47 Baso # (Auto) 0.06 K/uL (0-0.2) 05/20/22 05:47 Immature Gran # (Auto) 0.05 K/uL (0.00-0.02) H 05/20/22 05:47 Polychromasia 1+ 05/19/22 05:42 PT 11.7 Seconds (9.0-12.0) 05/15/22 02:23 INR 1.1 (0.9-1.1) 05/15/22 02:23 APTT 28.3 Seconds (21.0-31.0) 05/15/22 02:23 PTT Ratio 1.0 05/15/22 02:23 Sodium 134 mmol/L (136-145) L 05/20/22 05:47 Potassium 3.4 mmol/L (3.5-5.1) L 05/20/22 05:47 Chloride 102 mmol/L (98-107) 05/20/22 05:47 Carbon Dioxide 26 mmol/L (21-32) 05/20/22 05:47 Anion Gap 6 (3-11) 05/20/22 05:47 BUN 10 mg/dl (6-23) 05/20/22 05:47 Creatinine 0.74 mg/dl (0.6-1.4) 05/20/22 05:47 Est Cr Clr Drug Dosing 164.4 ml/min 05/20/22 05:47 Est GFR ( Amer) 129.1 ml/min 05/20/22 05:47 Est GFR (Non-Af Amer) 111.4 ml/min 05/20/22 05:47 BUN/Creatinine Ratio 13.5 (10-20) 05/20/22 05:47 Glucose 117 mg/dl (70-99(Fasting)) H 05/20/22 05:47 Calcium 9.3 mg/dl (8.5-10.1) 05/20/22 05:47 Magnesium 2.1 mg/dl (1.7-2.4) 05/15/22 01:21 Total Bilirubin 1.1 mg/dl (0.2-1.0) H 05/15/22 01:21 AST 27 U/L (13-39) 05/15/22 01:21 ALT 41 U/L (7-52) 05/15/22 01:21 Alkaline Phosphatase 65 U/L (34-104) 05/15/22 01:21 Ammonia 26.0 umol/L (18-72) 05/15/22 04:02 Troponin I High Sens 3.8 pg/ml (0-20) 05/15/22 01:21 Total Protein 7.2 gm/dl (6.0-8.3) 05/15/22 01:21 Albumin 4.4 gm/dl (3.4-5.0) 05/15/22 01:21 Globulin 2.8 gm/dl (2.5-4.0) 05/15/22 01:21 Albumin/Globulin Ratio 1.6 (0.9-2) 05/15/22 01:21 Triglycerides 77 mg/dl (0-150) 05/19/22 05:42 Cholesterol 105 mg/dl (0-200) 05/19/22 05:42 LDL Cholesterol, Calc 58 mg/dl 05/19/22 05:42 VLDL Cholesterol, Calc 15 mg/dl (0-30) 05/19/22 05:42 HDL Cholesterol 32 mg/dl 05/19/22 05:42 Cholesterol/HDL Ratio 3.3 (0-5) 05/19/22 05:42 Homocysteine 13.0 umol/L (<11.4) H 05/16/22 08:46 TSH 0.858 uIu/ml (0.300-4.500) 05/15/22 04:02 Urine Color Dark Yellow 05/15/22 Unknown Urine Appearance Clear (Clear) 05/15/22 Unknown Urine pH 5.5 (4.5-7.5) 05/15/22 Unknown Ur Specific [place] 1.022 (1.000-1.030) 05/15/22 Unknown Urine Protein Negative (Negative) 05/15/22 Unknown Urine Glucose (UA) Negative (Negative) 05/15/22 Unknown Urine Ketones 1+ (Negative) H 05/15/22 Unknown Urine Blood Negative (Negative) 05/15/22 Unknown Urine Nitrite Negative (Negative) 05/15/22 Unknown Urine Bilirubin Negative (Negative) 05/15/22 Unknown Urine Urobilinogen Negative (Negative) 05/15/22 Unknown Ur Leukocyte Esterase Negative (Negative) 05/15/22 Unknown Urine Opiates Screen Neg (Neg) 05/15/22 01:40 Ur Methadone, Qual Neg (Neg) 05/15/22 01:40 Urine Barbiturates Neg (Neg) 05/15/22 01:40 Ur Phencyclidine (PCP) Neg (Neg) 05/15/22 01:40 U Amphetamin/Meth Scrn Neg (Neg) 05/15/22 01:40 MDMA (Ecstasy) Screen Neg (Neg) 05/15/22 01:40 U Benzodiazepines Scrn Neg (Neg) 05/15/22 01:40 Ur Cocaine Metabolite Neg (Neg) 05/15/22 01:40 U Marijuana (THC) Screen Pos (Neg) H 05/15/22 01:40 U Marijuana THC Carboxy 32 ng/mL (<5) H 05/15/22 01:40 Drug Screen Comment SEE NOTE 05/15/22 01:40 SARS-CoV-2, RNA, NAAT NEGATIVE (NEGATIVE) 05/15/22 00:35 Impressions Chest X-Ray 05/15/22 02:27 XR chest 1V portable CLINICAL HISTORY: hyponatremia. COMPARISON STUDY: No previous studies for comparison. FINDINGS: Patient is mildly rotated. This likely accounts for slight asymmetric right lung opacity. Lung volumes are normal. Lungs are clear. No pulmonary nodules are noted although sensitivity is diminished given radiographic technique. There is no pneumothorax or pleural effusion. Cardiac size is normal. Mediastinal contours are normal. There is no evidence for pulmonary edema. IMPRESSION: No acute cardiopulmonary findings. ACT 112: Negative or not required by law. Electronically signed by: Jaime Jc M.D. 05/15/2022 6:[address] 05/16/22 07:[address] DOSE: 823.94 mGycm HISTORY: Stroke like symptoms. Follow up left temporal parietal lobe infarct. TECHNIQUE: Multiaxial CT images of the head were performed without the use of intravenous contrast. Automated exposure control was utilized for this study. A dose lowering technique was utilized adhering to the principles of ALARA. Comparison: Head CT 05/15/2022. Findings: The paranasal sinuses and mastoid air cells are clear. The calvarium and skull base are intact. There is an old left LOCOMOTIVE REPAIRER DIESEL territory infarct again noted. No significant change in the focal hypodense area within the left temporal/parietal lobe consistent with an acute to subacute infarct. This is best seen on image 18. No evidence for hemorrhagic transformation at this time. Areas of questionable increased density within the left-sided infarct likely represent residual normal cortex. Impression: 1. No significant change in the left temporal/parietal lobe infarct. 2. Old left LOCOMOTIVE REPAIRER DIESEL territory infarct again noted. 3. No acute intracranial hemorrhage. ACT 112: Negative or not required by law. Electronically signed by: Jones Vazquez M.D. 05/16/2022 9:34 AM
--- NOTE | 2022-05-20 11:29 | Communication Note ---
Date of Service: May 20, 2022 Patient certainly seems to be less agitated today. Heart rates improved, sinus rhythm in the 90s to low 100s noted. Blood pressure improved. Mild hypokalemia noted, potassium 3.4. Continue aspirin, atorvastatin. With regards to hypertension, continue amlodipine 5 mg daily, carvedilol increased to 6.25 mg twice daily on 05/19/2022. Reintroduce spironolactone. Has been on high dose, 300 mg daily as an outpatient, will reintroduce at 25 mg daily. Monitor sodium.
[2022-05-20 20:38] LABS: Appearance Urine Clear (Clear); Bilirubin Urine Negative (Negative); Blood Urine Negative (Negative); Color Urine Yellow; Glucose Urine UA Negative (Negative); Ketones Urine Negative (Negative); Leukocyte Esterase Urine Negative (Negative); Nitrite Urine Negative (Negative); Protein Urine Negative (Negative); Specific Gravity Urine 1.013 (1.000-1.030); Urobilinogen Urine Negative (Negative); pH Urine 6.5 (4.5-7.5)
[2022-05-20] MEDS: ATORVASTATIN 20 MG TAB PO SCH (20:45)
[2022-05-20] MEDS: OLANZapine 10 MG TAB PO SCH (20:45)
[2022-05-20] MEDS ORDERED: KETOROLAC 30 MG/ML VIAL IV ONE (23:27)
[2022-05-21] MEDS: ACETAMINOPHEN 325 MG TAB PO PRN ×2 (03:06→20:39)
[2022-05-21] MEDS ORDERED: MoRPHine SULFATE 4 MG/ML 1 ML CARP\\VIAL IV STA (03:34)
[2022-05-21 06:29] LABS: Basophils # (auto) 0.06 K/uL (0-0.2); Basophils % (auto) 1.1 %; Eosinophils # (auto) 0.37 K/uL (0-0.50); Eosinophils % (auto) 6.7 %; Hematocrit (blood only) 42.7 % (40.1-51.0); Immature Granulocytes # (auto) 0.05 K/uL (0.00-0.02); Immature Granulocytes % (auto) 0.9 %; Lymphocytes # (auto) 2.25 K/uL (1.2-3.4); Lymphocytes % (auto) 40.6 %; Mean Corpuscular Hemoglobin 32.9 pg (25.0-34.0); Mean Corpuscular Hgb Conc 35.1 g/dL (32.0-36.0); Mean Corpuscular Volume 93.6 fL (80.0-100.0); Mean Platelet Volume 11.5 fL (9.4-12.4); Monocytes # (auto) 0.63 K/uL (0.24-0.82); Monocytes % (auto) 11.4 %; Neutrophils # (auto) 2.18 K/uL (1.4-6.5); Neutrophils % (auto) 39.3 %; Platelet Count 146 K/uL (130-400); RDW Coefficient of Variation 12.1 % (11.5-14.5); RDW Standard Deviation 41.8 fL (36.4-46.3); Red Blood Count 4.56 M/uL (4.63-6.08); White Blood Count 5.54 K/ul (4.8-10.8)
--- NOTE | 2022-05-21 07:09 | CT Scan Report ---
HEAD CT NONCONTRAST CT DOSE: 614.27 mGy.cm HISTORY: severe headache. recent stroke. TECHNIQUE: Multiaxial CT images of the head were performed without the use of intravenous contrast. A utomated exposure control was utilized for this study. A dose lowering technique was utilized adheri ng to the principles of ALARA. Comparison: Head CT 05/16/2022. Findings: The paranasal sinuses and mastoid air cells are clear. The ventricles and sulci are within normal limits. There is an old left VOICE DATA COMMUNICATIONS ENGINEER territory infarct, unchanged. Focal area of hypodensity withi n the left temporoparietal lobe again noted consistent with an acute to subacute MCA territory infarc t. This is similar to the prior study. No evidence for hemorrhagic transformation or midline shift. Impression: 1. Redemonstration of the left temporoparietal lobe acute to subacute infarct. No evidence for hemorr hagic transformation. 2. Old left VOICE DATA COMMUNICATIONS ENGINEER territory infarct again noted. ACT 112: Negative or not required by law. Electronically signed by: Jones Vazquez M.D. 05/21/2022 7:07 AM
[2022-05-21 07:21] LABS: BUN Creatinine Ratio 15.9 (10-20); Calcium 9.3 mg/dl (8.5-10.1); Creatinine Clr Calc Pharmacy 138.9 ml/min; Est GFR (African American) 120.2 ml/min; Est GFR (Non-African American) 103.7 ml/min; Potassium 3.7 mmol/L (3.5-5.1)
[2022-05-21] MEDS: LINACLOTIDE 145 MCG CAPSULE PO SCH (10:12)
[2022-05-21] MEDS: ASPIRIN 81 MG ECTAB PO SCH (10:12)
[2022-05-21] MEDS: LORATADINE 10 MG TAB PO SCH (10:12)
[2022-05-21] MEDS: carvediloL 6.25 MG TAB PO SCH ×2 (10:12→20:30)
[2022-05-21] MEDS: SPIRONOLACTONE 25 MG TAB PO SCH (10:12)
[2022-05-21] MEDS: amLODIPine BESYLATE 5 MG TAB PO SCH (10:12)
[2022-05-21] MEDS: ENOXAPARIN INJ 40 MG/0.4 ML SYR SQ SCH (10:12)
[2022-05-21] MEDS: HYDROCORTISONE 1% CRM 30 GM TUBE EXT SCH ×3 (10:13→21:24)
[2022-05-21] MEDS: MUPIROCIN 2% OINT 22 GM TUBE TOP SCH ×2 (10:13→21:24)
--- NOTE | 2022-05-21 11:17 | Hospitalist Progress Note ---
Date of Service May 21, 2022 Assessment & Plan (1) Encephalopathy: Plan: Possible metabolic encephalopathy secondary to hyponatremia, psych meds? Recent acute CVA, left MCA (April 2022) History of recurrent stroke History of schizoaffective disorder/anxiety/mood disorder, unknown status Patient brought into the ER from the [facility], for worsening confusion at the [facility] 1) Metabolic encephalopathy, resolved 2) Hx of Recurrent Stroke CT head on admission On 05/14: 1. Acute infarct of the left temporal parietal lobe. 2. Chronic left occipital infarct. 3. No acute intracranial hemorrhage or midline shift. Repeat CT scan on 05/16 and 05/21 showed no acute changes. Urine drug screen:Marijuana TEEno cardiac source of emboli identified. No significant atheromatous disease in proximal ascending aorta, aortic arch and descending thoracic aorta Telemetry shows sinus tachycardia; no arrhythmia noted since admission. Plan: Mentation is back to baseline. Encephalopathy resolved. Continue on aspirin 81 mg and Lipitor at bedtime for secondary stroke prevention as per neurology. Estrogen replacement therapy stopped due to increase the risk of ischemic cere brovascular accident. Hypercoagulable work-up sent; to follow-up in neurology clinic. 3) Schizoaffective disorder: Plan: Psychiatry on board. Can be moved from one-to-one to every 15 checks. Discussed with nursing; does not feel comfortable removing one-to-one due to risks of fall. Zyprexa added; increased to 10mg daily. Seroquel discontinued. Effexor hold 4) Urinary Retention Trial of void done on 05/18; successful. Urine analysis - no infection 5) Mild hyponatremia Improved from 130, to 133 with IV fluids 6) Scabies infestation Pruritic rash involving patient's extremities and trunk improved 7) Hypertension -- Amlodipine increased to 5 mg p.o. daily Coreg added and dose increased to 6.25 due to tachycardia. 8) Hyperlipidemia on statin Rx Male to female transgender person, --patient transdermal estrogen resumed at the [facility] -- Hold estrogen per neurology service history IVDU prediabetes, hemoglobin A1c of 5.8 hemoglobin A1c of 5.8 last April 2022 ongoing tobacco abuse hx HCV unknown status DVT prophylaxis per Lovenox subcu Full code Disposition: Patient was brought from [facility]. Her mentation is back to her baseline. Discussed with Dipika from admission in [facility] on 05/19. She states that patient has rehab requirement due to her aphasia and her psych issues have improved. So, facility won't be taking her back. Patient will require rehab placement if not accepted at the facility. CM on board. PT OT ordered Admission and Anticipated Discharge Date Admission Date: May 15, 2022 Subjective Patient complained of headache overnight. The headache was not relieved with analgesics. CT head without contrast was done which did not show any acute abnormality. Telemetry reveals improvement in sinus tachycardia. Review of Systems Review of Systems: All systems reviewed & are unremarkable except as noted in Subjective Physical Exam Physical Exam: General-Awake, alert oriented to self. Not agitated. Mixed aphasia. Able to follow commands properly. Eyes- anicteric Neck- no JVD Lungs- clear breath sounds bilaterally, no rales/wheezes Heart- normal rate, regular rhythm; no murmurs Abdomen- normal bowel sounds, nondistended, soft, nontender Extremities- no pretibial edema, no calf tenderness Neuro- alert, seems to be oriented, has significant Aphasia. With word salad Otherwise no new gross focal neurologic Skin- warm & dry Results & Data Results & Data ([facility]) Vital Signs (Past 12 Hours) Vital Signs Temp Pulse Pulse Pulse Resp BP Pulse Ox 05/21/22 08:00 36.7 C 80 18 106/83 95 05/21/22 08:00 86 05/21/22 05:16 05/21/22 04:14 36.6 C 85 18 147/97 H 95 05/21/22 03:59 88 Pulse Ox O2 Del Method O2 Del Method 05/21/22 08:00 Room Air 05/21/22 08:00 05/21/22 05:16 95 Room Air 05/21/22 04:14 Room Air 05/21/22 03:59 Laboratory Results Laboratory Results WBC 5.54 K/ul (4.8-10.8) 05/21/22 05:54 RBC 4.56 M/uL (4.63-6.08) L 05/21/22 05:54 Hgb 15.0 g/dl (14.0-18.0) 05/21/22 05:54 Hct 42.7 % (40.1-51.0) 05/21/22 05:54 MCV 93.6 fL (80.0-100.0) 05/21/22 05:54 MCH 32.9 pg (25.0-34.0) 05/21/22 05:54 MCHC 35.1 g/dL (32.0-36.0) 05/21/22 05:54 RDW Std Deviation 41.8 fL (36.4-46.3) 05/21/22 05:54 RDW Coeff of Grazyna 12.1 % (11.5-14.5) 05/21/22 05:54 Plt Count 146 K/uL (130-400) 05/21/22 05:54 MPV 11.5 fL (9.4-12.4) 05/21/22 05:54 Immature Gran % (Auto) 0.9 % 05/21/22 05:54 Neut % (Auto) 39.3 % 05/21/22 05:54 Lymph % (Auto) 40.6 % 05/21/22 05:54 [place] % (Auto) 11.4 % 05/21/22 05:54 Eos % (Auto) 6.7 % 05/21/22 05:54 Baso % (Auto) 1.1 % 05/21/22 05:54 Neut # (Auto) 2.18 K/uL (1.4-6.5) 05/21/22 05:54 Lymph # (Auto) 2.25 K/uL (1.2-3.4) 05/21/22 05:54 [place] # (Auto) 0.63 K/uL (0.24-0.82) 05/21/22 05:54 Eos # (Auto) 0.37 K/uL (0-0.50) 05/21/22 05:54 Baso # (Auto) 0.06 K/uL (0-0.2) 05/21/22 05:54 Immature Gran # (Auto) 0.05 K/uL (0.00-0.02) H 05/21/22 05:54 Polychromasia 1+ 05/19/22 05:42 ESR 11 mm/hr (0-15) 05/21/22 05:54 PT 11.7 Seconds (9.0-12.0) 05/15/22 02:23 INR 1.1 (0.9-1.1) 05/15/22 02:23 APTT 28.3 Seconds (21.0-31.0) 05/15/22 02:23 PTT Ratio 1.0 05/15/22 02:23 Sodium 133 mmol/L (136-145) L 05/21/22 05:54 Potassium 3.7 mmol/L (3.5-5.1) 05/21/22 05:54 Chloride 102 mmol/L (98-107) 05/21/22 05:54 Carbon Dioxide 25 mmol/L (21-32) 05/21/22 05:54 Anion Gap 6 (3-11) 05/21/22 05:54 BUN 14 mg/dl (6-23) 05/21/22 05:54 Creatinine 0.88 mg/dl (0.6-1.4) 05/21/22 05:54 Est Cr Clr Drug Dosing 138.9 ml/min 05/21/22 05:54 Est GFR ( Amer) 120.2 ml/min 05/21/22 05:54 Est GFR (Non-Af Amer) 103.7 ml/min 05/21/22 05:54 BUN/Creatinine Ratio 15.9 (10-20) 05/21/22 05:54 Glucose 136 mg/dl (70-99(Fasting)) H 05/21/22 05:54 Calcium 9.3 mg/dl (8.5-10.1) 05/21/22 05:54 Magnesium 2.1 mg/dl (1.7-2.4) 05/15/22 01:21 Total Bilirubin 1.1 mg/dl (0.2-1.0) H 05/15/22 01:21 AST 27 U/L (13-39) 05/15/22 01:21 ALT 41 U/L (7-52) 05/15/22 01:21 Alkaline Phosphatase 65 U/L (34-104) 05/15/22 01:21 Ammonia 26.0 umol/L (18-72) 05/15/22 04:02 Troponin I High Sens 3.8 pg/ml (0-20) 05/15/22 01:21 Total Protein 7.2 gm/dl (6.0-8.3) 05/15/22 01:21 Albumin 4.4 gm/dl (3.4-5.0) 05/15/22 01:21 Globulin 2.8 gm/dl (2.5-4.0) 05/15/22 01:21 Albumin/Globulin Ratio 1.6 (0.9-2) 05/15/22 01:21 Triglycerides 77 mg/dl (0-150) 05/19/22 05:42 Cholesterol 105 mg/dl (0-200) 05/19/22 05:42 LDL Cholesterol, Calc 58 mg/dl 05/19/22 05:42 VLDL Cholesterol, Calc 15 mg/dl (0-30) 05/19/22 05:42 HDL Cholesterol 32 mg/dl 05/19/22 05:42 Cholesterol/HDL Ratio 3.3 (0-5) 05/19/22 05:42 Homocysteine 13.0 umol/L (<11.4) H 05/16/22 08:46 TSH 0.858 uIu/ml (0.300-4.500) 05/15/22 04:02 Urine Color Yellow 05/20/22 20:22 Urine Appearance Clear (Clear) 05/20/22 20:22 Urine pH 6.5 (4.5-7.5) 05/20/22 20:22 Ur Specific [place] 1.013 (1.000-1.030) 05/20/22 20:22 Urine Protein Negative (Negative) 05/20/22 20:22 Urine Glucose (UA) Negative (Negative) 05/20/22 20: Urine Ketones Negative (Negative) 05/20/22 20:22 Urine Blood Negative (Negative) 05/20/22 20:22 Urine Nitrite Negative (Negative) 05/20/22 20:22 Urine Bilirubin Negative (Negative) 05/20/22 20:22 Urine Urobilinogen Negative (Negative) 05/20/22 20:22 Ur Leukocyte Esterase Negative (Negative) 05/20/22 20:22 Urine Opiates Screen Neg (Neg) 05/15/22 01:40 Ur Methadone, Qual Neg (Neg) 05/15/22 01:40 Urine Barbiturates Neg (Neg) 05/15/22 01:40 Ur Phencyclidine (PCP) Neg (Neg) 05/15/22 01:40 U Amphetamin/Meth Scrn Neg (Neg) 05/15/22 01:40 MDMA (Ecstasy) Screen Neg (Neg) 05/15/22 01:40 U Benzodiazepines Scrn Neg (Neg) 05/15/22 01:40 Ur Cocaine Metabolite Neg (Neg) 05/15/22 01:40 U Marijuana (THC) Screen Pos (Neg) H 05/15/22 01:40 U Marijuana THC Carboxy 32 ng/mL (<5) H 05/15/22 01:40 Drug Screen Comment SEE NOTE 05/15/22 01:40 SARS-CoV-2, RNA, NAAT NEGATIVE (NEGATIVE) 05/15/22 00:35 Impressions Chest X-Ray 05/15/22 02:27 XR chest 1V portable CLINICAL HISTORY: hyponatremia. COMPARISON STUDY: No previous studies for comparison. FINDINGS: Patient is mildly rotated. This likely accounts for slight asymmetric right lung opacity. Lung volumes are normal. Lungs are clear. No pulmonary nodules are noted although sensitivity is diminished given radiographic technique. There is no pneumothorax or pleural effusion. Cardiac size is normal. Mediastinal contours are normal. There is no evidence for pulmonary edema. IMPRESSION: No acute cardiopulmonary findings. ACT 112: Negative or not required by law. Electronically signed by: Jamie Jc M.D. 05/15/2022 6:[address] 05/21/22 03:[address] DOSE: 614.27 mGy.cm HISTORY: severe headache. recent stroke. TECHNIQUE: Multiaxial CT images of the head were performed without the use of intravenous contrast. Automated exposure control was utilized for this study. A dose lowering technique was utilized adhering to the principles of ALARA. Comparison: Head CT 05/16/2022. Findings: The paranasal sinuses and mastoid air cells are clear. The ventricles and sulci are within normal limits. There is an old left SENIOR CLINICAL DATA ANALYST territory infarct, unchanged. Focal area of hypodensity within the left temporoparietal lobe again noted consistent with an acute to subacute MCA territory infarct. This is similar to the prior study. No evidence for hemorrhagic transformation or midline shift. Impression: 1. Redemonstration of the left temporoparietal lobe acute to subacute infarct. No evidence for hemorrhagic transformation. 2. Old left SENIOR CLINICAL DATA ANALYST territory infarct again noted. ACT 112: Negative or not required by law. Electronically signed by: Jones Vazquez M.D. 05/21/2022 7:07 AM
--- NOTE | 2022-05-21 14:23 | Cardiology Progress Note ---
Date of Service May 21, 2022 Assessment & Plan (1) Aphasia as late effect of cerebrovascular accident: (2) History of multiple strokes: (3) Schizoaffective disorder: (4) HTN (hypertension): Plan GABY revealed no cardiac source of embolism, with no valvular vegetations, intact interatrial septum, and no significant atherosclerosis in the visualized portion of the thoracic aorta. Hypercoagulable work-up obtained, results pending. Homocystine level mildly elevated, consider folic acid supplementation. As noted, stroke risks include hypertension, cigarette smoking, estrogen supplementation. Recommend outpatient long-term telemetry monitor, perhaps 14-day Zio patch, or 30-day mobile outpatient cardiac laundry supervisor, which can be placed at time of outpatient follow up. Perhaps would be reasonable for pt to transition his cardiology care to [facility] upon discharge since that is closer to home. Continue aspirin, amlodipine, carvedilol, atorvastatin. Spironolactone reinitiated, had been on high dose, 300 mg, 25 mg started. Sodium relatively stable. Continue Lovenox for DVT prophylaxis. Admission and Anticipated Discharge Date Admission Date: May 15, 2022 Subjective Patient seen in cardiology follow-up. Telemetry reveals sinus rhythm in the 90s. Patient had removed telemetry wires several times overnight, but they are back in place. Ongoing expressive aphasia noted, patient does follow commands appropriately. Review of Systems Review of Systems: Review of systems unobtainable due to expressive aphasia. Physical Exam Constitutional: WD/WN, vitals as above Respiratory: normal respiratory effort, lungs clear to auscultation Cardiovascular: RRR, no murmur, no edema Gastrointestinal (Abdomen): normal bowel sounds, soft, nontender, no hepatosplenomegaly Neurologic: PERRL, EOMI, accommodation nl, no face palsy, no dysarthria Results & Data ([facility]) Vital Signs (Past 12 Hours) Vital Signs Temp Pulse Pulse Pulse Resp BP Pulse Ox 05/21/22 08:00 36.7 C 80 18 106/83 95 05/21/22 08:00 86 05/21/22 05:16 05/21/22 04:14 36.6 C 85 18 147/97 H 95 05/21/22 03:59 88 Pulse Ox O2 Del Method O2 Del Method 05/21/22 08:00 Room Air 05/21/22 08:00 05/21/22 05:16 95 Room Air 05/21/22 04:14 Room Air 05/21/22 03:59 Laboratory Results CBC 05/21/22 Range/Units 05:54 WBC 5.54 (4.8-10.8) K/ul RBC 4.56 L (4.63-6.08) M/uL Hgb 15.0 (14.0-18.0) g/dl Hct 42.7 (40.1-51.0) % Plt Count 146 (130-400) K/uL Neut # (Auto) 2.18 (1.4-6.5) K/uL Lymph # (Auto) 2.25 (1.2-3.4) K/uL [place] # (Auto) 0.63 (0.24-0.82) K/uL Eos # (Auto) 0.37 (0-0.50) K/uL Baso # (Auto) 0.06 (0-0.2) K/uL Comprehensive Metabolic Panel 05/21/22 Range/Units 05:54 Sodium 133 L (136-145) mmol/L Potassium 3.7 (3.5-5.1) mmol/L Chloride 102 (98-107) mmol/L Carbon Dioxide 25 (21-32) mmol/L BUN 14 (6-23) mg/dl Creatinine 0.88 (0.6-1.4) mg/dl Glucose 136 H (70-99(Fasting)) mg/dl Calcium 9.3 (8.5-10.1) mg/dl Intake and Output 05/20/22 05/21/22 05/21/22 22:59 06:59 14:59 Intake Total 200 / 400 200 / 400 Output Total 500 / 1350 850 / 1350 Balance -300 / -950 -650 / -950 Intake: Oral 200 / 400 200 / 400 Output: Urine 500 / 1350 850 / 1350 Other: Weight 111.7 kg Weight Measurement Method [facility]
--- NOTE | 2022-05-21 16:45 | Psychiatric Progress Note ---
Date of Service May 21, 2022 Impression / Recommendations Impression 47 yo transgender woman s/p MCA stroke with expressive aphasia, treated for scabies, increasingly agitated following stroke and then med changes at the [facility] (significant dose reduction in Seroquel, titration of Effexor XR in a patient with schizoaffective disorder (need to clarify type, suspect bipolar type vs depressive), and/or side effects to Keppra). 05/21/22: reviewed interim progress per Dr. Donahue and agree with assessment per above. Continues to deny SI and HI and has been behaviorally regulated. Aphasia and her concerns about potential implications of stroke on HRT safety/how this will impact her transition remains her main concern. Reviewed other ways individuals can transition even without HRT which she was accepting of. Continues to tolerate zyprexa, in future consider cross-taper to option with fewer metabolic side effects but given long period of stability with seroquel in past, olanzapine felt to be reasonable choice at this time and offering benefit. (1) Schizoaffective disorder: Plan 05/21/22: -Not felt to need 1-on-1 for psychiatric safety, discretion of hospitalist as apparently patient has required for fall risk at times/impulsivity s/p stroke -PT/OT evals in progress, plan likely for acute rehab for post-stroke treatment once medically stable -No current indications for need for inpatient psychiatric admission, ps ychiatric stability will be best addressed with therapy targeted at improving speech and motor skills s/p stroke -cannot leave hospital AMA without additional safety and aftercare planning if should attempt to leave prior to completion of medical course given history of decompensation Interval History Identifying Information 47 yo transgendered person (genetic male to female transition) from [facility] with recent CVA in late April 2022 admitted medically on 05/14, three days into [facility] hospitalization for increase in agitation. Psychiatry consulted for disposition and medication recommendations. Chief Complaint "Stroke no cigarettes no HRT". Subjective Subjective Patient was seen & assessed and interval progress reviewed. Conversation is difficult given expressive aphasia from recent CVA. Perseverative about statements regarding "no cigarettes, no HRT and stroke" repeatedly. Denies SI and denies HI. Denies zyprexa side effects. Recalls history of seroquel but continues to feel zyprexa is reasonable now. Procedures Performed Operation Date: 05/18/22 08:00 Actual Procedures p Echo Transesophageal - Todd Bueno DO s Echo Doppler Complete - Todd Bueno DO s Echo Color Flow - Todd Bueno DO Physical Exam Psychiatric Orientation: alert and oriented x 3 (expressive aphasia) Apperance: appropriately groomed Eye Contact: good eye contact Motor Behavior: no abnormal motor movements Speech: + abnormal rate/rhythm/volume of speech (expressive aphasia) Affect: + constricted affect Mood: + irritable mood; no depressed mood Thought Process: + perseveration and + concrete thought process Thought Content: no delusions Suicidal Thoughts: denies suicidal thoughts Homicidal Thoughts: denies homicidal thoughts Hallucinations: no auditory hallucinations and no visual hallucinations Cognition: recent memory grossly intact and attention grossly intact Insight: + limited insight Judgement: + limited judgement Vital Signs (Past 24 Hours) Last Vital Signs Temp 36.6 C 05/21/22 16:04 Pulse 98 H 05/21/22 16:04 Resp 20 05/21/22 16:04 BP 133/90 05/21/22 16:04 Pulse Ox 98 05/21/22 16:04 O2 Del Method 05/21/22 16:04 O2 Flow Rate 4 05/18/22 08:55 Results & Data ([facility]) Laboratory Results Laboratory Results - last 24 hr 05/20/22 05/21/22 05/21/22 20:22 05:54 05:54 WBC 5.54 RBC 4.56 L Hgb 15.0 Hct 42.7 MCV 93.6 MCH 32.9 MCHC 35.1 RDW Std Deviation 41.8 RDW Coeff of Grazyna 12.1 Plt Count 146 MPV 11.5 Immature Gran % (Auto) 0.9 Neut % (Auto) 39.3 Lymph % (Auto) 40.6 [place] % (Auto) 11.4 Eos % (Auto) 6.7 Baso % (Auto) 1.1 Neut # (Auto) 2.18 Lymph # (Auto) 2.25 [place] # (Auto) 0.63 Eos # (Auto) 0.37 Baso # (Auto) 0.06 Immature Gran # (Auto) 0.05 H ESR Sodium 133 L Potassium 3.7 Chloride 102 Carbon Dioxide 25 Anion Gap 6 BUN 14 Creatinine 0.88 Est Cr Clr Drug Dosing 138.9 Est GFR ( Amer) 120.2 Est GFR (Non-Af Amer) 103.7 BUN/Creatinine Ratio 15.9 Glucose 136 H Calcium 9.3 Urine Color Yellow Urine Appearance Clear Urine pH 6.5 Ur Specific [place] 1.013 Urine Protein Negative Urine Glucose (UA) Negative Urine Ketones Negative Urine Blood Negative Urine Nitrite Negative Urine Bilirubin Negative Urine Urobilinogen Negative Ur Leukocyte Esterase Negative 05/21/22 05:54 WBC RBC Hgb Hct MCV MCH MCHC RDW Std Deviation RDW Coeff of Grazyna Plt Count MPV Immature Gran % (Auto) Neut % (Auto) Lymph % (Auto) [place] % (Auto) Eos % (Auto) Baso % (Auto) Neut # (Auto) Lymph # (Auto) [place] # (Auto) Eos # (Auto) Baso # (Auto) Immature Gran # (Auto) ESR 11 Sodium Potassium Chloride Carbon Dioxide Anion Gap BUN Creatinine Est Cr Clr Drug Dosing Est GFR ( Amer) Est GFR (Non-Af Amer) BUN/Creatinine Ratio Glucose Calcium Urine Color Urine Appearance Urine pH Ur Specific [place] Urine Protein Urine Glucose (UA) Urine Ketones Urine Blood Urine Nitrite Urine Bilirubin Urine Urobilinogen Ur Leukocyte Esterase Current Inpatient Medications Current Inpatient Medications: Current Inpatient Medications Acetaminophen (Acetaminophen 325 Mg Tab) 650 mg PO Q4H PRN PRN Reason: Pain Stop: 06/14/22 05:48 Last Admin: 05/21/22 03:06 Dose: 650 mg Amlodipine Besylate (Amlodipine Besylate 5 Mg Tab) 5 mg PO QAM [facility] Stop: 06/16/22 08:59 Last Admin: 05/21/22 10:12 Dose: 5 mg Aspirin (Aspirin 81 Mg Ectab) 81 mg PO QAM [facility] Stop: 06/14/22 08:59 Last Admin: 05/21/22 10:12 Dose: 81 mg Atorvastatin Calcium (Atorvastatin 20 Mg Tab) 20 mg PO HS DILAN Stop: 06/14/22 20:59 Last Admin: 05/20/22 20:45 Dose: 20 mg Carvedilol (Carvedilol 6.25 Mg Tab) 6.25 mg PO BID [facility] Stop: 06/18/22 20:59 Last Admin: 05/21/22 10:12 Dose: 6.25 mg Enoxaparin Sodium (Enoxaparin Inj 40 Mg/0.4 Ml Syr) 40 mg SQ QAM [facility] Stop: 06/14/22 08:59 Last Admin: 05/21/22 10:12 Dose: 40 mg Hydrocortisone (Hydrocortisone 1% Crm 30 Gm Tube) 1 appln EXT TID DILAN Stop: 06/14/22 08:59 Last Admin: 05/21/22 14:39 Dose: 1 appln Promethazine HCl 12.5 mg/ (Sodium Chloride) 50.5 mls @ 202 mls/hr IV Q6H PRN PRN Reason: Nausea And Vomiting Stop: 06/14/22 05:48 Linaclotide (Linaclotide 145 Mcg Capsule) 290 mcg PO DAILY DILAN Stop: 06/14/22 08:59 Last Admin: 05/21/22 10:12 Dose: 290 mcg Loratadine (Loratadine 10 Mg Tab) 10 mg PO QAM [facility] Stop: 06/15/22 08:59 Last Admin: 05/21/22 10:12 Dose: 10 mg Mupirocin (Mupirocin 2% Oint 22 Gm Tube) 1 appln TOP BID DILAN Stop: 06/14/22 08:59 Last Admin: 05/21/22 10:13 Dose: 1 appln Olanzapine (Olanzapine 10 Mg/2.1 Ml Sdv) 5 mg IM Q6H PRN PRN Reason: Anxiety/Agitation Stop: 06/14/22 03:22 Last Admin: 05/18/22 01:28 Dose: 5 mg Olanzapine (Olanzapine 10 Mg Tab) 10 mg PO HS [facility] Stop: 06/18/22 20:59 Last Admin: 05/20/22 20:45 Dose: 10 mg Spironolactone (Spironolactone 25 Mg Tab) 25 mg PO QAM [facility] Stop: 06/19/22 08:59 Last Admin: 05/21/22 10:12 Dose: 25 mg
[2022-05-21] MEDS: ATORVASTATIN 20 MG TAB PO SCH (20:30)
[2022-05-21] MEDS: OLANZapine 10 MG TAB PO SCH (20:31)
[2022-05-21] MEDS ORDERED: LORazepam 0.5 MG TAB PO STA (21:59)
[2022-05-22 07:11] LABS: Basophils # (auto) 0.06 K/uL (0-0.2); Basophils % (auto) 1.2 %; Eosinophils # (auto) 0.33 K/uL (0-0.50); Eosinophils % (auto) 6.5 %; Hematocrit (blood only) 41.8 % (40.1-51.0); Hemoglobin 14.5 g/dl (14.0-18.0); Immature Granulocytes # (auto) 0.03 K/uL (0.00-0.02); Immature Granulocytes % (auto) 0.6 %; Lymphocytes # (auto) 1.85 K/uL (1.2-3.4); Lymphocytes % (auto) 36.6 %; Mean Corpuscular Hemoglobin 32.3 pg (25.0-34.0); Mean Corpuscular Hgb Conc 34.7 g/dL (32.0-36.0); Mean Corpuscular Volume 93.1 fL (80.0-100.0); Mean Platelet Volume 11.2 fL (9.4-12.4); Monocytes # (auto) 0.55 K/uL (0.24-0.82); Monocytes % (auto) 10.9 %; Neutrophils # (auto) 2.24 K/uL (1.4-6.5); Neutrophils % (auto) 44.2 %; Platelet Count 152 K/uL (130-400); RDW Standard Deviation 41.5 fL (36.4-46.3); Red Blood Count 4.49 M/uL (4.63-6.08); White Blood Count 5.06 K/ul (4.8-10.8)
[2022-05-22 07:36] LABS: BUN Creatinine Ratio 15.3 (10-20); Calcium 9.1 mg/dl (8.5-10.1); Creatinine Clr Calc Pharmacy 169.9 ml/min; Est GFR (African American) 130.6 ml/min; Est GFR (Non-African American) 112.7 ml/min; Potassium 3.7 mmol/L (3.5-5.1)
[2022-05-22] MEDS: ACETAMINOPHEN 325 MG TAB PO PRN ×2 (08:13→20:38)
[2022-05-22] MEDS: amLODIPine BESYLATE 5 MG TAB PO SCH (08:16)
[2022-05-22] MEDS: ASPIRIN 81 MG ECTAB PO SCH (08:16)
[2022-05-22] MEDS: ENOXAPARIN INJ 40 MG/0.4 ML SYR SQ SCH (08:16)
[2022-05-22] MEDS: carvediloL 6.25 MG TAB PO SCH ×2 (08:16→20:21)
[2022-05-22] MEDS: SPIRONOLACTONE 25 MG TAB PO SCH (08:16)
[2022-05-22] MEDS: LORATADINE 10 MG TAB PO SCH (08:16)
[2022-05-22] MEDS: LINACLOTIDE 145 MCG CAPSULE PO SCH (08:16)
[2022-05-22] MEDS: MUPIROCIN 2% OINT 22 GM TUBE TOP SCH ×2 (08:19→20:21)
[2022-05-22] MEDS: HYDROCORTISONE 1% CRM 30 GM TUBE EXT SCH ×3 (08:19→20:21)
--- NOTE | 2022-05-22 10:43 | Hospitalist Progress Note ---
Date of Service May 22, 2022 Assessment & Plan (1) Encephalopathy: Plan: Possible metabolic encephalopathy secondary to hyponatremia, psych meds? Recent acute CVA, left MCA (April 2022) History of recurrent stroke History of schizoaffective disorder/anxiety/mood disorder, unknown status Patient brought into the ER from the [facility], for worsening confusion at the [facility] 1) Metabolic encephalopathy, resolved 2) Hx of Recurrent Stroke CT head on admission On 05/14: 1. Acute infarct of the left temporal parietal lobe. 2. Chronic left occipital infarct. 3. No acute intracranial hemorrhage or midline shift. Repeat CT scan on 05/16 and 05/21 showed no acute changes. Urine drug screen:Marijuana TEEno cardiac source of emboli identified. No significant atheromatous disease in proximal ascending aorta, aortic arch and descending thoracic aorta Telemetry shows sinus tachycardia; no arrhythmia noted since admission. Plan: Mentation is back to baseline. Encephalopathy resolved. Continue on aspirin 81 mg and Lipitor at bedtime for secondary stroke prevention as per neurology. Estrogen replacement therapy stopped due to increase the risk of ischemic cere brovascular accident. Hypercoagulable work-up sent; to follow-up in neurology clinic. 3) Schizoaffective disorder: Plan: Psychiatry on board. Can be moved from one-to-one to every 15 checks. Zyprexa added; increased to 10mg daily. Seroquel discontinued. Effexor hold 4) Urinary Retention Trial of void done on 05/18; successful. Urine analysis - no infection 5) Mild hyponatremia Improved from 130, to 133 with IV fluids 6) Scabies infestation Pruritic rash involving patient's extremities and trunk improved 7) Hypertension -- Amlodipine increased to 5 mg p.o. daily Coreg added and dose increased to 6.25 due to tachycardia. 8) Hyperlipidemia on statin Rx Male to female transgender person, --patient transdermal estrogen resumed at the [facility] -- Hold estrogen per neurology service history IVDU prediabetes, hemoglobin A1c of 5.8 hemoglobin A1c of 5.8 last April 2022 ongoing tobacco abuse hx HCV unknown status DVT prophylaxis per Lovenox subcu Full code Disposition: Patient was brought from [facility]. Her mentation is back to her baseline. Discussed with Dipika from admission in [facility] on 05/19. She states that patient has rehab requirement due to her aphasia and her psych issues have improved. So, facility won't be taking her back. Patient will require rehab placement if not accepted at the facility. CM on board. PT OT ordered Admission and Anticipated Discharge Date Admission Date: May 15, 2022 Subjective Patient seen and examined at bedside. Her aphasia is slightly improved today. She is able to have a conversation and follow commands. She continues to have intermittent word salad. She is comfortable; not in any distress. She denies any fever, chills, chest pain, shortness of breath, abdominal pain or urinary symptoms. Review of Systems Review of Systems: All systems reviewed & are unremarkable except as noted in Subjective Physical Exam Physical Exam: General-Awake, alert oriented to self. Not agitated. Mixed aphasia. Able to follow commands properly. Eyes- anicteric Neck- no JVD Lungs- clear breath sounds bilaterally, no rales/wheezes Heart- normal rate, regular rhythm; no murmurs Abdomen- normal bowel sounds, nondistended, soft, nontender Extremities- no pretibial edema, no calf tenderness Neuro- alert, seems to be oriented, has significant Aphasia. With word salad Otherwise no new gross focal neurologic Skin- warm & dry Results & Data Results & Data ([facility]) Vital Signs (Past 12 Hours) Vital Signs Temp Pulse Pulse Pulse Resp BP BP 05/22/22 08:25 98 H 05/22/22 07:00 36.8 C 89 18 138/81 05/22/22 05:00 05/22/22 04:00 36.5 C 90 18 146/95 H 05/21/22 22:52 36.9 C 89 18 133/94 Pulse Ox O2 Del Method O2 Del Method 05/22/22 08:25 05/22/22 07:00 96 Room Air 05/22/22 05:00 Room Air 05/22/22 04:00 98 Room Air 05/21/22 22:52 96 Room Air Laboratory Results Laboratory Results WBC 5.06 K/ul (4.8-10.8) 05/22/22 06:50 RBC 4.49 M/uL (4.63-6.08) L 05/22/22 06:50 Hgb 14.5 g/dl (14.0-18.0) 05/22/22 06:50 Hct 41.8 % (40.1-51.0) 05/22/22 06:50 MCV 93.1 fL (80.0-100.0) 05/22/22 06:50 MCH 32.3 pg (25.0-34.0) 05/22/22 06:50 MCHC 34.7 g/dL (32.0-36.0) 05/22/22 06:50 RDW Std Deviation 41.5 fL (36.4-46.3) 05/22/22 06:50 RDW Coeff of Grazyna 12.0 % (11.5-14.5) 05/22/22 06:50 Plt Count 152 K/uL (130-400) 05/22/22 06:50 MPV 11.2 fL (9.4-12.4) 05/22/22 06:50 Immature Gran % (Auto) 0.6 % 05/22/22 06:50 Neut % (Auto) 44.2 % 05/22/22 06:50 Lymph % (Auto) 36.6 % 05/22/22 06:50 [place] % (Auto) 10.9 % 05/22/22 06:50 Eos % (Auto) 6.5 % 05/22/22 06:50 Baso % (Auto) 1.2 % 05/22/22 06:50 Neut # (Auto) 2.24 K/uL (1.4-6.5) 05/22/22 06:50 Lymph # (Auto) 1.85 K/uL (1.2-3.4) 05/22/22 06:50 [place] # (Auto) 0.55 K/uL (0.24-0.82) 05/22/22 06:50 Eos # (Auto) 0.33 K/uL (0-0.50) 05/22/22 06:50 Baso # (Auto) 0.06 K/uL (0-0.2) 05/22/22 06:50 Immature Gran # (Auto) 0.03 K/uL (0.00-0.02) H 05/22/22 06:50 Polychromasia 1+ 05/19/22 05:42 ESR 11 mm/hr (0-15) 05/21/22 05:54 PT 11.7 Seconds (9.0-12.0) 05/15/22 02:23 INR 1.1 (0.9-1.1) 05/15/22 02:23 APTT 28.3 Seconds (21.0-31.0) 05/15/22 02:23 PTT Ratio 1.0 05/15/22 02:23 Sodium 134 mmol/L (136-145) L 05/22/22 06:50 Potassium 3.7 mmol/L (3.5-5.1) 05/22/22 06:50 Chloride 105 mmol/L (98-107) 05/22/22 06:50 Carbon Dioxide 24 mmol/L (21-32) 05/22/22 06:50 Anion Gap 5 (3-11) 05/22/22 06:50 BUN 11 mg/dl (6-23) 05/22/22 06:50 Creatinine 0.72 mg/dl (0.6-1.4) 05/22/22 06:50 Est Cr Clr Drug Dosing 169.9 ml/min 05/22/22 06:50 Est GFR ( Amer) 130.6 ml/min 05/22/22 06:50 Est GFR (Non-Af Amer) 112.7 ml/min 05/22/22 06:50 BUN/Creatinine Ratio 15.3 (10-20) 05/22/22 06:50 Glucose 152 mg/dl (70-99(Fasting)) H 05/22/22 06:50 Calcium 9.1 mg/dl (8.5-10.1) 05/22/22 06:50 Magnesium 2.1 mg/dl (1.7-2.4) 05/15/22 01:21 Total Bilirubin 1.1 mg/dl (0.2-1.0) H 05/15/22 01:21 AST 27 U/L (13-39) 05/15/22 01:21 ALT 41 U/L (7-52) 05/15/22 01:21 Alkaline Phosphatase 65 U/L (34-104) 05/15/22 01:21 Ammonia 26.0 umol/L (18-72) 05/15/22 04:02 Troponin I High Sens 3.8 pg/ml (0-20) 05/15/22 01:21 Total Protein 7.2 gm/dl (6.0-8.3) 05/15/22 01:21 Albumin 4.4 gm/dl (3.4-5.0) 05/15/22 01:21 Globulin 2.8 gm/dl (2.5-4.0) 05/15/22 01:21 Albumin/Globulin Ratio 1.6 (0.9-2) 05/15/22 01:21 Triglycerides 77 mg/dl (0-150) 05/19/22 05:42 Cholesterol 105 mg/dl (0-200) 05/19/22 05:42 LDL Cholesterol, Calc 58 mg/dl 05/19/22 05:42 VLDL Cholesterol, Calc 15 mg/dl (0-30) 05/19/22 05:42 HDL Cholesterol 32 mg/dl 05/19/22 05:42 Cholesterol/HDL Ratio 3.3 (0-5) 05/19/22 05:42 Homocysteine 13.0 umol/L (<11.4) H 05/16/22 08:46 TSH 0.858 uIu/ml (0.300-4.500) 05/15/22 04:02 Urine Color Yellow 05/20/22 20: Urine Appearance Clear (Clear) 05/20/22 20: Urine pH 6.5 (4.5-7.5) 05/20/22 20:22 Ur Specific [place] 1.013 (1.000-1.030) 05/20/22 20:22 Urine Protein Negative (Negative) 05/20/22 20: Urine Glucose (UA) Negative (Negative) 05/20/22 20: Urine Ketones Negative (Negative) 05/20/22 20:22 Urine Blood Negative (Negative) 05/20/22 20: Urine Nitrite Negative (Negative) 05/20/22 20: Urine Bilirubin Negative (Negative) 05/20/22 20:22 Urine Urobilinogen Negative (Negative) 05/20/22 20:22 Ur Leukocyte Esterase Negative (Negative) 05/20/22 20:22 Urine Opiates Screen Neg (Neg) 05/15/22 01:40 Ur Methadone, Qual Neg (Neg) 05/15/22 01:40 Urine Barbiturates Neg (Neg) 05/15/22 01:40 Ur Phencyclidine (PCP) Neg (Neg) 05/15/22 01:40 U Amphetamin/Meth Scrn Neg (Neg) 05/15/22 01:40 MDMA (Ecstasy) Screen Neg (Neg) 05/15/22 01:40 U Benzodiazepines Scrn Neg (Neg) 05/15/22 01:40 Ur Cocaine Metabolite Neg (Neg) 05/15/22 01:40 U Marijuana (THC) Screen Pos (Neg) H 05/15/22 01:40 U Marijuana THC Carboxy 32 ng/mL (<5) H 05/15/22 01:40 Drug Screen Comment SEE NOTE 05/15/22 01:40 SARS-CoV-2, RNA, NAAT NEGATIVE (NEGATIVE) 05/15/22 00:35 Impressions Chest X-Ray 05/15/22 02:27 XR chest 1V portable CLINICAL HISTORY: hyponatremia. COMPARISON STUDY: No previous studies for comparison. FINDINGS: Patient is mildly rotated. This likely accounts for slight asymmetric right lung opacity. Lung volumes are normal. Lungs are clear. No pulmonary nodules are noted although sensitivity is diminished given radiographic technique. There is no pneumothorax or pleural effusion. Cardiac size is normal. Mediastinal contours are normal. There is no evidence for pulmonary edema. IMPRESSION: No acute cardiopulmonary findings. ACT 112: Negative or not required by law. Electronically signed by: Jamie Jc M.D. 05/15/2022 6:[address] 05/21/22 03:[address] DOSE: 614.27 mGy.cm HISTORY: severe headache. recent stroke. TECHNIQUE: Multiaxial CT images of the head were performed without the use of intravenous contrast. Automated exposure control was utilized for this study. A dose lowering technique was utilized adhering to the principles of ALARA. Comparison: Head CT 05/16/2022. Findings: The paranasal sinuses and mastoid air cells are clear. The ventricles and sulci are within normal limits. There is an old left EMPLOYEE PLACEMENT SPECIALIST territory infarct, unchanged. Focal area of hypodensity within the left temporoparietal lobe again noted consistent with an acute to subacute MCA territory infarct. This is similar to the prior study. No evidence for hemorrhagic transformation or midline shift. Impression: 1. Redemonstration of the left temporoparietal lobe acute to subacute infarct. No evidence for hemorrhagic transformation. 2. Old left EMPLOYEE PLACEMENT SPECIALIST territory infarct again noted. ACT 112: Negative or not required by law. Electronically signed by: Jones Vazquez M.D. 05/21/2022 7:07 AM
--- NOTE | 2022-05-22 11:32 | Cardiology Progress Note ---
Date of Service May 22, 2022 Assessment & Plan (1) Aphasia as late effect of cerebrovascular accident: (2) History of multiple strokes: (3) Schizoaffective disorder: (4) HTN (hypertension): Plan GABY revealed no cardiac source of embolism, with no valvular vegetations, intact interatrial septum, and no significant atherosclerosis in the visualized portion of the thoracic aorta. Hypercoagulable work-up obtained, results pending. Homocystine level mildly elevated, consider folic acid supplementation. As noted, stroke risks include hypertension, cigarette smoking, estrogen supplementation. Continue aspirin, amlodipine, carvedilol, atorvastatin. Spironolactone reinitiated, had been on high dose, 300 mg, 25 mg started. Sodium relatively stable. Recommend outpatient long-term night monitor, perhaps 14-day Zio patch, or 30- day mobile outpatient cardiac classroom monitor, which can be placed at time of outpatient follow up. Perhaps would be reasonable for pt to transition his cardiology care to [facility] upon discharge since that is closer to home. Continue Lovenox for DVT prophylaxis. Admission and Anticipated Discharge Date Admission Date: May 15, 2022 Subjective Pt seen in follow up. No complaints. Aphasia slightly improved over the last few days. Seems to have less difficulty with one syllable words. Telemetry reveals SR in the 80s and 90s, no atrial fibrillation. Physical Exam Constitutional: WD/WN, vitals as above Respiratory: normal respiratory effort, lungs clear to auscultation Cardiovascular: RRR, no murmur, no edema Gastrointestinal (Abdomen): normal bowel sounds, soft, nontender, no hepatosplenomegaly Neurologic: PERRL, EOMI, accommodation nl, no face palsy, no dysarthria Results & Data ([facility]) Vital Signs (Past 12 Hours) Vital Signs Temp Pulse Pulse Pulse Resp BP BP 05/22/22 08:25 98 H 05/22/22 07:00 36.8 C 89 18 138/81 05/22/22 05:00 05/22/22 04:00 36.5 C 90 18 146/95 H Pulse Ox O2 Del Method O2 Del Method 05/22/22 08:25 05/22/22 07:00 96 Room Air 05/22/22 05:00 Room Air 05/22/22 04:00 98 Room Air
[2022-05-22] MEDS: OLANZapine 10 MG/2.1 ML SDV IM PRN (17:01)
[2022-05-22 19:16] LABS: Factor 5 Mutation NEGATIVE
[2022-05-22] MEDS: ATORVASTATIN 20 MG TAB PO SCH (20:20)
[2022-05-22] MEDS: OLANZapine 10 MG TAB PO SCH (20:21)
[2022-05-22] MEDS ORDERED: LORazepam 0.5 MG TAB PO STA (20:42)
[2022-05-23] MEDS ORDERED: METOPROLOL TARTRATE 1 MG/ML VIAL IV STA ×2 (01:38→03:36)
[2022-05-23] MEDS ORDERED: LORazepam 0.5 MG in SYRINGE 0 ML IV ONE (02:33)
[2022-05-23] MEDS ORDERED: METOPROLOL TARTRATE 1 MG/ML VIAL IV ONE (03:40)
[2022-05-23] MEDS: OLANZapine 10 MG/2.1 ML SDV IM PRN (04:27)
[2022-05-23] MEDS ORDERED: LABETALOL HCL IV 5 MG/ML 20ML IV STA (06:16)
--- NOTE | 2022-05-23 08:08 | Electrocardiogram Report ---
Test Reason : Blood Pressure : / mmHG Vent. Rate : 125 BPM Atrial Rate : 125 BPM P-R Int : 146 ms QRS Dur : 082 ms QT Int : 314 ms P-R-T Axes : 059 061 022 degrees QTc Int : 453 ms Sinus tachycardia Otherwise normal ECG When compared with ECG of 15-MAY-2022 00:04, No significant change was found Confirmed by Humza Brooks ([id number]) on 05/23/2022 8:08:26 AM Referred By: REFERRED SELF Confirmed By:Humza Brooks
[2022-05-23] MEDS: amLODIPine BESYLATE 5 MG TAB PO SCH (08:45)
[2022-05-23] MEDS: SPIRONOLACTONE 25 MG TAB PO SCH (08:46)
[2022-05-23] MEDS: carvediloL 6.25 MG TAB PO SCH (08:46)
[2022-05-23] MEDS: LORATADINE 10 MG TAB PO SCH (08:46)
[2022-05-23] MEDS: ASPIRIN 81 MG ECTAB PO SCH (08:46)
[2022-05-23] MEDS: ENOXAPARIN INJ 40 MG/0.4 ML SYR SQ SCH (08:46)
[2022-05-23] MEDS: LINACLOTIDE 145 MCG CAPSULE PO SCH (08:46)
[2022-05-23] MEDS: HYDROCORTISONE 1% CRM 30 GM TUBE EXT SCH ×2 (08:47→14:59)
[2022-05-23] MEDS: MUPIROCIN 2% OINT 22 GM TUBE TOP SCH (08:48)
[2022-05-23 09:57] LABS: Basophils # (auto) 0.07 K/uL (0-0.2); Basophils % (auto) 0.8 %; Eosinophils # (auto) 0.21 K/uL (0-0.50); Eosinophils % (auto) 2.5 %; Hematocrit (blood only) 45.2 % (40.1-51.0); Hemoglobin 16.2 g/dl (14.0-18.0); Immature Granulocytes # (auto) 0.06 K/uL (0.00-0.02); Immature Granulocytes % (auto) 0.7 %; Lymphocytes # (auto) 1.99 K/uL (1.2-3.4); Lymphocytes % (auto) 23.4 %; Mean Corpuscular Hemoglobin 33.1 pg (25.0-34.0); Mean Corpuscular Hgb Conc 35.8 g/dL (32.0-36.0); Mean Corpuscular Volume 92.2 fL (80.0-100.0); Mean Platelet Volume 11.2 fL (9.4-12.4); Monocytes # (auto) 0.74 K/uL (0.24-0.82); Monocytes % (auto) 8.7 %; Neutrophils # (auto) 5.42 K/uL (1.4-6.5); Neutrophils % (auto) 63.9 %; Platelet Count 215 K/uL (130-400); RDW Coefficient of Variation 11.9 % (11.5-14.5); RDW Standard Deviation 40.5 fL (36.4-46.3); White Blood Count 8.49 K/ul (4.8-10.8)
[2022-05-23 10:29] LABS: BUN Creatinine Ratio 13.2 (10-20); Calcium 9.7 mg/dl (8.5-10.1); Est GFR (African American) 127.7 ml/min; Est GFR (Non-African American) 110.2 ml/min; Potassium 3.9 mmol/L (3.5-5.1)
--- NOTE | 2022-05-23 11:34 | Hospitalist Progress Note ---
Date of Service May 23, 2022 Assessment & Plan (1) Encephalopathy: Plan: Possible metabolic encephalopathy secondary to hyponatremia, psych meds? Recent acute CVA, left MCA (April 2022) History of recurrent stroke History of schizoaffective disorder/anxiety/mood disorder, unknown status Patient brought into the ER from the [facility], for worsening confusion at the [facility] 1) Metabolic encephalopathy, resolved 2) Hx of Recurrent Stroke CT head on admission On 05/14: 1. Acute infarct of the left temporal parietal lobe. 2. Chronic left occipital infarct. 3. No acute intracranial hemorrhage or midline shift. Repeat CT scan on 05/16 and 05/21 showed no acute changes. Urine drug screen:Marijuana TEEno cardiac source of emboli identified. No significant atheromatous disease in proximal ascending aorta, aortic arch and descending thoracic aorta Telemetry shows sinus tachycardia; no arrhythmia noted since admission. Plan: Continue on aspirin 81 mg and Lipitor at bedtime for secondary stroke prevention as per neurology. Estrogen replacement therapy stopped due to increase the risk of ischemic cerebrovascular accident. Hypercoagulable work-up sent; to follow-up in neurology clinic. 3) Schizoaffective disorder: Was admitted to [facility] prior to admission given her psychiatric history. Plan: Psychiatry on board. Patient mentation had initially improved and patient was changed from 1-1 sitter to every 15 checks. However, on the night of 22 May; patient became restless agitated and said that she had suicidal ideation. One-to-one sitter ordered again. Patient may need inpatient psychiatry admission. -Currently she is on Zyprexa 10 mg orally at night along with IM Zyprexa as needed. 4) Urinary Retention Trial of void done on 05/18; successful. Urine analysis - no infection 5) Mild hyponatremia Improved from 130, to 137 with IV fluids 6) Scabies infestation Pruritic rash involving patient's extremities and trunk improved 7) Hypertension -- Amlodipine increased to 5 mg p.o. daily Coreg added and dose increased to 6.25 due to tachycardia. 8) Hyperlipidemia on statin Rx Male to female transgender person, --patient transdermal estrogen resumed at the [facility] -- Hold estrogen per neurology service history IVDU prediabetes, hemoglobin A1c of 5.8 hemoglobin A1c of 5.8 last April 2022 ongoing tobacco abuse hx HCV unknown status DVT prophylaxis per Lovenox subcu Full code Patient has recent history of stroke which resulted in mixed aphasia. Her work-up in the hospital was remarkable for hyponatremia which has improved. Imaging done since the hospitalization did not show any sign of new stroke and stable compared to her previous imaging. Her aphasia has improved during the hospitalization as well. She is medically stable for discharge. She will need outpatient neurology follow-up after psychiatric stabilization. Admission and Anticipated Discharge Date Admission Date: May 15, 2022 Subjective Patient was agitated overnight. Required dose of Ativan and Zyprexa. Reported suicidal ideation overnight. She is back to one-to-one observation. Review of Systems Review of Systems: Unobtainable due to mental health condition Physical Exam Physical Exam: General-agitated. Her aphasia has slightly improved. Eyes- anicteric Neck- no JVD Lungs- clear breath sounds bilaterally, no rales/wheezes Heart- normal rate, regular rhythm; no murmurs Abdomen- normal bowel sounds, nondistended, soft, nontender Extremities- no pretibial edema, no calf tenderness Neuro- alert, seems to be oriented; improvement in aphasia since admission. With word salad Otherwise no new gross focal neurologic Skin- warm & dry Results & Data Results & Data ([facility]) Vital Signs (Past 12 Hours) Vital Signs Temp Pulse Pulse Pulse Resp BP BP 05/23/22 11:02 37.2 C 106 H 18 05/23/22 10:29 05/23/22 08:00 128 H 05/23/22 07:57 37.0 C 120 H 20 140/113 H 05/23/22 06:07 05/23/22 05:09 05/23/22 03:44 117 H 140/120 H 05/23/22 03:00 37.3 C 127 H 16 05/23/22 02:00 130 H 173/106 H 05/23/22 01:27 173/108 H 05/23/22 00:52 98 H BP Pulse Ox O2 Del Method O2 Del Method 05/23/22 11:02 147/99 H 94 Room Air 05/23/22 10:29 147/96 H 05/23/22 08:00 05/23/22 07:57 94 Room Air 05/23/22 06:07 170/126 H 05/23/22 05:09 Room Air 05/23/22 03:44 05/23/22 03:00 176/117 H 95 Room Air 05/23/22 02:00 05/23/22 01:27 175/115 H 05/23/22 00:52 Laboratory Results Laboratory Results WBC 8.49 K/ul (4.8-10.8) 05/23/22 09:24 RBC 4.90 M/uL (4.63-6.08) 05/23/22 09:24 Hgb 16.2 g/dl (14.0-18.0) 05/23/22 09:24 Hct 45.2 % (40.1-51.0) 05/23/22 09:24 MCV 92.2 fL (80.0-100.0) 05/23/22 09:24 MCH 33.1 pg (25.0-34.0) 05/23/22 09:24 MCHC 35.8 g/dL (32.0-36.0) 05/23/22 09:24 RDW Std Deviation 40.5 fL (36.4-46.3) 05/23/22 09:24 RDW Coeff of [place]raz[place] 11.9 % (11.5-14.5) 05/23/22 09:24 Plt Count 215 K/uL (130-400) 05/23/22 09:24 MPV 11.2 fL (9.4-12.4) 05/23/22 09:24 Immature Gran % (Auto) 0.7 % 05/23/22 09:24 Neut % (Auto) 63.9 % 05/23/22 09:24 Lymph % (Auto) 23.4 % 05/23/22 09:24 [place] % (Auto) 8.7 % 05/23/22 09:24 Eos % (Auto) 2.5 % 05/23/22 09:24 Baso % (Auto) 0.8 % 05/23/22 09:24 Neut # (Auto) 5.42 K/uL (1.4-6.5) 05/23/22 09:24 Lymph # (Auto) 1.99 K/uL (1.2-3.4) 05/23/22 09:24 [place] # (Auto) 0.74 K/uL (0.24-0.82) 05/23/22 09:24 Eos # (Auto) 0.21 K/uL (0-0.50) 05/23/22 09:24 Baso # (Auto) 0.07 K/uL (0-0.2) 05/23/22 09:24 Immature Gran # (Auto) 0.06 K/uL (0.00-0.02) H 05/23/22 09:24 Polychromasia 1+ 05/19/22 05:42 ESR 11 mm/hr (0-15) 05/21/22 05:54 PT 11.7 Seconds (9.0-12.0) 05/15/22 02:23 INR 1.1 (0.9-1.1) 05/15/22 02:23 APTT 28.3 Seconds (21.0-31.0) 05/15/22 02:23 PTT Ratio 1.0 05/15/22 02:23 Factor V Leiden Mutat NEGATIVE 05/16/22 08:46 Factor V Leiden Interp See Below 05/16/22 08:46 Sodium 137 mmol/L (136-145) 05/23/22 09:24 Potassium 3.9 mmol/L (3.5-5.1) 05/23/22 09:24 Chloride 107 mmol/L (98-107) 05/23/22 09:24 Carbon Dioxide 22 mmol/L (21-32) 05/23/22 09:24 Anion Gap 8 (3-11) 05/23/22 09:24 BUN 10 mg/dl (6-23) 05/23/22 09:24 Creatinine 0.76 mg/dl (0.6-1.4) 05/23/22 09:24 Est Cr Clr Drug Dosing 161.0 ml/min 05/23/22 09:24 Est GFR ( Amer) 127.7 ml/min 05/23/22 09:24 Est GFR (Non-Af Amer) 110.2 ml/min 05/23/22 09:24 BUN/Creatinine Ratio 13.2 (10-20) 05/23/22 09:24 Glucose 158 mg/dl (70-99(Fasting)) H 05/23/22 09:24 Calcium 9.7 mg/dl (8.5-10.1) 05/23/22 09:24 Magnesium 2.1 mg/dl (1.7-2.4) 05/15/22 01:21 Total Bilirubin 1.1 mg/dl (0.2-1.0) H 05/15/22 01:21 AST 27 U/L (13-39) 05/15/22 01:21 ALT 41 U/L (7-52) 05/15/22 01:21 Alkaline Phosphatase 65 U/L (34-104) 05/15/22 01:21 Ammonia 26.0 umol/L (18-72) 05/15/22 04:02 Troponin I High Sens 3.8 pg/ml (0-20) 05/15/22 01:21 Total Protein 7.2 gm/dl (6.0-8.3) 05/15/22 01:21 Albumin 4.4 gm/dl (3.4-5.0) 05/15/22 01:21 Globulin 2.8 gm/dl (2.5-4.0) 05/15/22 01:21 Albumin/Globulin Ratio 1.6 (0.9-2) 05/15/22 01:21 Triglycerides 77 mg/dl (0-150) 05/19/22 05:42 Cholesterol 105 mg/dl (0-200) 05/19/22 05:42 LDL Cholesterol, Calc 58 mg/dl 05/19/22 05:42 VLDL Cholesterol, Calc 15 mg/dl (0-30) 05/19/22 05:42 HDL Cholesterol 32 mg/dl 05/19/22 05:42 Cholesterol/HDL Ratio 3.3 (0-5) 05/19/22 05:42 Homocysteine 13.0 umol/L (<11.4) H 05/16/22 08:46 TSH 0.858 uIu/ml (0.300-4.500) 05/15/22 04:02 Urine Color Yellow 05/20/22 20: Urine Appearance Clear (Clear) 05/20/22 20: Urine pH 6.5 (4.5-7.5) 05/20/22: Ur Specific [place] 1.013 (1.000-1.030) 05/20/22 20: Urine Protein Negative (Negative) 05/20/22 20: Urine Glucose (UA) Negative (Negative) 05/20/22 20: Urine Ketones Negative (Negative) 05/20/22 20: Urine Blood Negative (Negative) 05/20/22 20:22 Urine Nitrite Negative (Negative) 05/20/22 20:22 Urine Bilirubin Negative (Negative) 05/20/22 20:22 Urine Urobilinogen Negative (Negative) 05/20/22 20:22 Ur Leukocyte Esterase Negative (Negative) 05/20/22 20:22 Urine Opiates Screen Neg (Neg) 05/15/22 01:40 Ur Methadone, Qual Neg (Neg) 05/15/22 01:40 Urine Barbiturates Neg (Neg) 05/15/22 01:40 Ur Phencyclidine (PCP) Neg (Neg) 05/15/22 01:40 U Amphetamin/Meth Scrn Neg (Neg) 05/15/22 01:40 MDMA (Ecstasy) Screen Neg (Neg) 05/15/22 01:40 U Benzodiazepines Scrn Neg (Neg) 05/15/22 01:40 Ur Cocaine Metabolite Neg (Neg) 05/15/22 01:40 U Marijuana (THC) Screen Pos (Neg) H 05/15/22 01:40 U Marijuana THC Carboxy 32 ng/mL (<5) H 05/15/22 01:40 Drug Screen Comment SEE NOTE 05/15/22 01:40 SARS-CoV-2, RNA, NAAT NEGATIVE (NEGATIVE) 05/15/22 00:35 Prothrombin Gene Mutate NEGATIVE 05/16/22 08:46 Prothromb Gene Comment See Below 05/16/22 08:46 Impressions Chest X-Ray 05/15/22 02:27 XR chest 1V portable CLINICAL HISTORY: hyponatremia. COMPARISON STUDY: No previous studies for comparison. FINDINGS: Patient is mildly rotated. This likely accounts for slight asymmetric right lung opacity. Lung volumes are normal. Lungs are clear. No pulmonary nodules are noted although sensitivity is diminished given radiographic technique. There is no pneumothorax or pleural effusion. Cardiac size is normal. Mediastinal contours are normal. There is no evidence for pulmonary edema. IMPRESSION: No acute cardiopulmonary findings. ACT 112: Negative or not required by law. Electronically signed by: Jamie Jc M.D. 05/15/2022 6:[address] 05/21/22 03:[address] DOSE: 614.27 mGy.cm HISTORY: severe headache. recent stroke. TECHNIQUE: Multiaxial CT images of the head were performed without the use of intravenous contrast. Automated exposure control was utilized for this study. A dose lowering technique was utilized adhering to the principles of ALARA. Comparison: Head CT 05/16/2022. Findings: The paranasal sinuses and mastoid air cells are clear. The ventricles and sulci are within normal limits. There is an old left STAFF PHYSICIAN territory infarct, unchanged. Focal area of hypodensity within the left temporoparietal lobe again noted consistent with an acute to subacute MCA territory infarct. This is similar to the prior study. No evidence for hemorrhagic transformation or midline shift. Impression: 1. Redemonstration of the left temporoparietal lobe acute to subacute infarct. No evidence for hemorrhagic transformation. 2. Old left STAFF PHYSICIAN territory infarct again noted. ACT 112: Negative or not required by law. Electronically signed by: Jones Vazquez M.D. 05/21/2022 7:07 AM
--- NOTE | 2022-05-23 12:04 | Communication Note ---
Date of Service: May 23, 2022 Telemetry and vitals reviewed. SR and sinus tachycardia , rate 90-110 bpm noted. No atrial fibrillation. BP higher last night and again this am. EKG=sinus tachycardia at 125 bpm. Event updates noted, with agitation noted last night that correlates with vital signs. Continue current doses of carvedilol 6.25 mg BID, spironolactone 25 mg daily, amlodipine 5 mg dailly. ASA 81 mg daily Atorvastatin 20 mg daily.
[2022-05-23] MEDS ORDERED: diphenhydrAMINE 50 MG/ML VIAL IM PRN (12:07)
[2022-05-23] MEDS ORDERED: HALOPERIDOL LACTATE 5 MG/ML 1 ML VIAL IM PRN ×2 (12:07→16:30)
[2022-05-23] MEDS ORDERED: LORazepam 2 MG/2 ML SYR IM PRN (12:07)
--- NOTE | 2022-05-23 12:07 | Psychiatric Progress Note ---
Date of Service May 23, 2022 Impression / Recommendations Impression 47 yo transgender woman s/p MCA stroke with expressive aphasia, treated for scabies, increasingly agitated following stroke and then med changes at the [facility] (significant dose reduction in Seroquel, titration of Effexor XR in a patient with schizoaffective disorder, bipolar type and/or side effects to Keppra) Now presenting with symptoms of psychosis, poor sleep, and rapid speech concerning for acute tiffanie. 05/22/22: decompensated significantly overnight, appears manic today with paranoia, perseverative about bowel movements with delusional beliefs, and making intermittent statements of passive SI. Not felt to be stable enough for acute rehab in this context and she agrees for voluntary psychiatric inpatient placement search. Reviewed risks/benefits/alternatives regarding antipsychotics. She wants to start seroquel. Reviewed side effects including but not limited to metabolic risks, including high risk of stroke, as well as movement and cardiac risks but she wants to restart seroquel. AIMS score of 0, reviewed fasting lipid panel and glucose results from 05/19/22. Given history of stability on seroquel and her preference will make this change; unfortunately all second generation antipsychotics carry metabolic risk (reviewed that seroquel one of the highest) but she is not interested in 1st gen option or alternative 2nd gen or trying higher dose of zyprexa for better symptom control. Reviewed risks/benefits/alternatives of restarting Cogentin, including potential to increase risk for future tardive dyskinesia, but she would like to start this as she has found it beneficial for restlessness in the past. Suspect she may find it beneficial/has in the past due to sedating/histaminergic effects. Acute risk of harm to self is high-moderate given SI and behavioral dysregulation and psy chosis. (1) Schizoaffective disorder: Plan 05/22/22: -1-on-1 given SI -Will start voluntary psych inpt bed search -Stop zyprexa 10mg qhs and restart seroquel 600mg qhs -Restart prior to admission cogentin 1mg BID -Start ativan 1mg po TID prn for agitation/anxiety due to symptoms of tiffanie -For behavioral emergency would use: haldol 5mg, benadryl 50mg, ativan 2mg IM, monitor QTc 05/21/22: -Not felt to need 1-on-1 for psychiatric safety, discretion of hospitalist as apparently patient has required for fall risk at times/impulsivity s/p stroke -PT/OT evals in progress, plan likely for acute rehab for post-stroke treatment once medically stable -No current indications for need for inpatient psychiatric admission, psychiatric stability will be best addressed with therapy targeted at improving speech and motor skills s/p stroke -cannot leave hospital AMA without additional safety and aftercare planning if should attempt to leave prior to completion of medical course given history of decompensation Interval History Identifying Information 47 yo transgendered person (genetic male to female transition) from [facility] with recent CVA in late April 2022 admitted medically on 05/14, three days into [facility] hospitalization for increase in agitation. Psychiatry consulted for disposition and medication recommendations. Chief Complaint "My poop is not good, it might have a pieces of horse in it". Review of Systems Notes poor sleep, stable appetite Subjective Subjective Patient was seen & assessed and interval progress reviewed. Hallucinating overnight, making statements of SI. Today fixated on concerns about her poop/bowel movements. Stating concern that poop is "wrong" from eating hot dogs two weeks ago and concerned her poop may have " pieces or pieces of horses" in it. Per 1-on-1 patient has been hallucinating that she is having a bowel movement. She requests to be put back on "seroquel 600mg that worked for me for years" and "cogentin, it helps me when I'm shaky, it really calms me down". States she had SI because "I was lonely, I wanted to ". Per -on- made statements of SI again this morning intermittently. Procedures Performed Operation Date: 05/18/22 08:00 Actual Procedures p Echo Transesophageal - Todd Bueno, DO s Echo Doppler Complete - Todd Bueno, DO s Echo Color Flow - Todd Bueno, DO Physical Exam Psychiatric Orientation: alert and oriented x 3 Apperance: appropriately groomed Eye Contact: good eye contact Motor Behavior: no abnormal motor movements Speech: + abnormal rate/rhythm/volume of speech (expressive aphasia but improving, rapid speech, difficult to interrupt ) Affect: + anxious affect Mood: + depressed mood and + anxious mood Thought Process: + perseveration Thought Content: + paranoid and + delusions Suicidal Thoughts: denies suicidal plan and denies suicidal intent; + reports suicidal thoughts Homicidal Thoughts: denies homicidal thoughts Hallucinations: + auditory hallucinations and + visual hallucinations Cognition: recent memory grossly intact and language grossly intact; + attention not intact Insight: + limited insight Judgement: + severely impaired judgement Vital Signs (Past 24 Hours) Last Vital Signs Temp 37.2 C 05/23/22 11:02 Pulse 106 H 05/23/22 11:02 Resp 18 05/23/22 11:02 BP 147/99 H 05/23/22 11:02 Pulse Ox 94 05/23/22 11:02 O2 Del Method 05/23/22 11:02 O2 Flow Rate 4 05/18/22 08:55 Results & Data ([facility]) Laboratory Results Laboratory Results - last 24 hr 05/16/22 05/23/22 05/23/22 08:46 09:24 09:24 WBC 8.49 RBC 4.90 Hgb 16.2 Hct 45.2 MCV 92.2 MCH 33.1 MCHC 35.8 RDW Std Deviation 40.5 RDW Coeff of Grazyna 11.9 Plt Count 215 MPV 11.2 Immature Gran % (Auto) 0.7 Neut % (Auto) 63.9 Lymph % (Auto) 23.4 [place] % (Auto) 8.7 Eos % (Auto) 2.5 Baso % (Auto) 0.8 Neut # (Auto) 5.42 Lymph # (Auto) 1.99 [place] # (Auto) 0.74 Eos # (Auto) 0.21 Baso # (Auto) 0.07 Immature Gran # (Auto) 0.06 H Factor V Leiden Mutat NEGATIVE Factor V Leiden Interp See Below Sodium 137 Potassium 3.9 Chloride 107 Carbon Dioxide 22 Anion Gap 8 BUN 10 Creatinine 0.76 Est Cr Clr Drug Dosing 161.0 Est GFR ( Amer) 127.7 Est GFR (Non-Af Amer) 110.2 BUN/Creatinine Ratio 13.2 Glucose 158 H Calcium 9.7 Prothrombin Gene Mutate NEGATIVE Prothromb Gene Comment See Below Current Inpatient Medications Current Inpatient Medications: Current Inpatient Medications Acetaminophen (Acetaminophen 325 Mg Tab) 650 mg PO Q4H PRN PRN Reason: Pain Stop: 06/14/22 05:48 Last Admin: 05/22/22 20:38 Dose: 650 mg Amlodipine Besylate (Amlodipine Besylate 5 Mg Tab) 5 mg PO QAM [facility] Stop: 06/16/22 08:59 Last Admin: 05/23/22 08:45 Dose: 5 mg Aspirin (Aspirin 81 Mg Ectab) 81 mg PO QAM [facility] Stop: 06/14/22 08:59 Last Admin: 05/23/22 08:46 Dose: 81 mg Atorvastatin Calcium (Atorvastatin 20 Mg Tab) 20 mg PO HS [facility] Stop: 06/14/22 20:59 Last Admin: 05/22/22 20:20 Dose: 20 mg Carvedilol (Carvedilol 6.25 Mg Tab) 6.25 mg PO BID [facility] Stop: 06/18/22 20:59 Last Admin: 05/23/22 08:46 Dose: 6.25 mg Enoxaparin Sodium (Enoxaparin Inj 40 Mg/0.4 Ml Syr) 40 mg SQ QAM [facility] Stop: 06/14/22 08:59 Last Admin: 05/23/22 08:46 Dose: 40 mg Hydrocortisone (Hydrocortisone 1% Crm 30 Gm Tube) 1 appln EXT TID [facility] Stop: 06/14/22 08:59 Last Admin: 05/23/22 08:47 Dose: 1 appln Promethazine HCl 12.5 mg/ (Sodium Chloride) 50.5 mls @ 202 mls/hr IV Q6H PRN PRN Reason: Nausea And Vomiting Stop: 06/14/22 05:48 Linaclotide (Linaclotide 145 Mcg Capsule) 290 mcg PO DAILY [facility] Stop: 06/14/22 08:59 Last Admin: 05/23/22 08:46 Dose: 290 mcg Loratadine (Loratadine 10 Mg Tab) 10 mg PO QAM [facility] Stop: 06/15/22 08:59 Last Admin: 05/23/22 08:46 Dose: 10 mg Mupirocin (Mupirocin 2% Oint 22 Gm Tube) 1 appln TOP BID [facility] Stop: 06/14/22 08:59 Last Admin: 05/23/22 08:48 Dose: 1 appln Olanzapine (Olanzapine 10 Mg/2.1 Ml Sdv) 5 mg IM Q6H PRN PRN Reason: Anxiety/Agitation Stop: 06/14/22 03:22 Last Admin: 05/23/22 04:27 Dose: 5 mg Olanzapine (Olanzapine 10 Mg Tab) 10 mg PO [facility] Stop: 06/18/22 20:59 Last Admin: 05/22/22 20:21 Dose: 10 mg Spironolactone (Spironolactone 25 Mg Tab) [facility] Stop: 06/19/22 08:59 Last Admin: 05/23/22 08:46 Dose: 25 mg
[2022-05-23] MEDS: LORazepam 1 MG TAB PO PRN (12:25)
[2022-05-23] MEDS ORDERED: OLANZapine 10 MG/2.1 ML SDV IM STA (16:15)
[2022-05-23] MEDS ORDERED: OLANZapine 10 MG/2.1 ML SDV IM ONE ×2 (16:17→16:18)
[2022-05-23] MEDS ORDERED: LORazepam 0.5 MG in SYRINGE 0 ML IV STA (16:28)
[2022-05-23] MEDS ORDERED: LORazepam 0.5 MG in SYRINGE 0 ML IV PRN (16:29)
--- NOTE | 2022-05-23 17:17 | Communication Note ---
Date of Service: May 23, 2022 Patient later refusing voluntary psychiatric admission, remained very paranoid with delusions, agitation and making ongoing statements of SI. 302 warrant pursued and now on 302 commitment. Plan: -Must remain on as now on 302 commitment -[facility] delegate working on inpatient psychiatry bed search
[2022-05-23] MEDS ORDERED: diphenhydrAMINE 50 MG/ML VIAL IV PRN (17:18)
[2022-05-24] MEDS: QUEtiapine FUMARATE 300 MG TABLET PO SCH ×2 (00:50→22:17)
[2022-05-24] MEDS: BENZTROPINE MESYLATE 1 MG TAB PO SCH ×3 (00:50→22:17)
[2022-05-24] MEDS: ATORVASTATIN 20 MG TAB PO SCH ×2 (00:50→22:17)
[2022-05-24] MEDS: HYDROCORTISONE 1% CRM 30 GM TUBE EXT SCH ×4 (00:51→22:04)
[2022-05-24] MEDS: carvediloL 6.25 MG TAB PO SCH ×3 (00:51→22:18)
[2022-05-24] MEDS: MUPIROCIN 2% OINT 22 GM TUBE TOP SCH ×3 (00:51→22:04)
[2022-05-24 02:12] LABS: Anti Cardiolipin Ab IgG <2.0 GPL-U/mL; Anti Cardiolipin Ab IgM <2.0 MPL-U/mL; Anti-Thrombin III Activity 92 % normal (80-135); B2 Glycoprotein IgG <2.0 U/mL (<20.0); B2 Glycoprotein IgM <2.0 U/mL (<20.0); PTT LA Screen 40 sec (<=40); Protein S Functional(Activity) 136 % normal (70-150)
[2022-05-24] MEDS: LORATADINE 10 MG TAB PO SCH (08:37)
[2022-05-24] MEDS: SPIRONOLACTONE 25 MG TAB PO SCH (08:37)
[2022-05-24] MEDS: ASPIRIN 81 MG ECTAB PO SCH (08:37)
[2022-05-24] MEDS: amLODIPine BESYLATE 5 MG TAB PO SCH (08:37)
[2022-05-24] MEDS: LINACLOTIDE 145 MCG CAPSULE PO SCH (08:37)
[2022-05-24] MEDS: ENOXAPARIN INJ 40 MG/0.4 ML SYR SQ SCH (08:43)
[2022-05-24 10:36] LABS: BUN Creatinine Ratio 17.6 (10-20); Calcium 9.3 mg/dl (8.5-10.1); Est GFR (Non-African American) 105.2 ml/min; Potassium 3.5 mmol/L (3.5-5.1)
[2022-05-24 10:41] LABS: Hematocrit (blood only) 42.5 % (40.1-51.0); Hemoglobin 14.9 g/dl (14.0-18.0); Mean Corpuscular Hgb Conc 35.1 g/dL (32.0-36.0); Mean Corpuscular Volume 94.2 fL (80.0-100.0); Mean Platelet Volume 10.8 fL (9.4-12.4); Platelet Count 131 K/uL (130-400); RDW Coefficient of Variation 12.2 % (11.5-14.5); RDW Standard Deviation 42.5 fL (36.4-46.3); Red Blood Count 4.51 M/uL (4.63-6.08); White Blood Count 5.79 K/ul (4.8-10.8)
[2022-05-24 10:42] LABS: Basophils # (auto) 0.06 K/uL (0-0.2); Eosinophils # (auto) 0.19 K/uL (0-0.50); Eosinophils % (auto) 3.3 %; Immature Granulocytes # (auto) 0.02 K/uL (0.00-0.02); Immature Granulocytes % (auto) 0.3 %; Lymphocytes # (auto) 1.64 K/uL (1.2-3.4); Lymphocytes % (auto) 28.3 %; Monocytes % (auto) 10.4 %; Neutrophils # (auto) 3.28 K/uL (1.4-6.5); Neutrophils % (auto) 56.7 %
--- NOTE | 2022-05-24 11:30 | Psychiatric Progress Note ---
Date of Service May 24, 2022 Impression / Recommendations Impression 47 yo transgender woman s/p MCA stroke with expressive aphasia, treated for scabies, increasingly agitated following stroke and then med changes at the [facility] (significant dose reduction in Seroquel, titration of Effexor XR in a patient with schizoaffective disorder, bipolar type and/or side effects to Keppra) Now presenting with symptoms of psychosis, poor sleep, and rapid speech concerning for acute tiffanie. 05/23/22: slept better with seroquel last night. Required IM medication yesterday afternoon for agitation. less agitation today but still with delusions and disorganized thought process. (1) Schizoaffective disorder: Plan 05/23/22: Continue bed search, remains on 1-on-1. Continue current medications. 05/22/22: -1-on-1 given SI -Will start voluntary psych inpt bed search -Stop zyprexa 10mg qhs and restart seroquel 600mg qhs -Restart prior to admission cogentin 1mg BID -Start ativan 1mg po TID prn for agitation/anxiety due to symptoms of tiffanie -For behavioral emergency would use: haldol 5mg, benadryl 50mg, ativan 2mg IM, monitor QTc 05/21/22: -Not felt to need 1-on-1 for psychiatric safety, discretion of hospitalist as apparently patient has required for fall risk at times/impulsivity s/p stroke -PT/OT evals in progress, plan likely for acute rehab for post-stroke treatment once medically stable -No current indications for need for inpatient psychiatric admission, psychiatric stability will be best addressed with therapy targeted at improving speech and motor skills s/p stroke -cannot leave hospital AMA without additional safety and aftercare planning if should attempt to leave prior to completion of medical course given history of decompensation Interval History Identifying Information 47 yo transgendered person (genetic male to female transition) from [facility] with recent CVA in late April 2022 admitted medically on 05/14, three days into [facility] hospitalization for increase in agitation. Psychiatry consulted for disposition and medication recommendations. Chief Complaint sleeping Review of Systems Notes see subjective Subjective Subjective Patient was seen & assessed and interval progress reviewed. Patient sleeping this morning and not felt to be therapeutic to wake her. Per review with RN, Georgina was denying SI this morning but continued to make delusional and odd statements. From RN chart documentation appears to have slept well overnight. Ate breakfast this morning. Procedures Performed Operation Date: 05/18/22 08:00 Actual Procedures p Echo Transesophageal - DO jude Miguel Echo Doppler Complete - DO jude Miguel Echo Color Flow - Todd Bueno DO Physical Exam Psychiatric Orientation: + not alert Apperance: appropriately dressed and appropriately groomed Eye Contact: + poor eye contact Motor Behavior: no abnormal motor movements Vital Signs (Past 24 Hours) Last Vital Signs Temp 36.5 C 05/24/22 07:34 Pulse 88 05/24/22 08:13 Resp 18 05/24/22 07:34 BP 127/89 05/24/22 07:34 Pulse Ox 96 05/24/22 07:34 O2 Del Method 05/24/22 07:34 O2 Flow Rate 4 05/18/22 08:55 Results & Data ([facility]) Laboratory Results Laboratory Results - last 24 hr 05/16/22 05/24/22 05/24/22 08:46 10:01 10:01 WBC 5.79 RBC 4.51 L Hgb 14.9 Hct 42.5 MCV 94.2 MCH 33.0 MCHC 35.1 RDW Std Deviation 42.5 RDW Coeff of Grazyna 12.2 Plt Count 131 MPV 10.8 Immature Gran % (Auto) 0.3 Neut % (Auto) 56.7 Lymph % (Auto) 28.3 [place] % (Auto) 10.4 Eos % (Auto) 3.3 Baso % (Auto) 1.0 Neut # (Auto) 3.28 Lymph # (Auto) 1.64 [place] # (Auto) 0.60 Eos # (Auto) 0.19 Baso # (Auto) 0.06 Immature Gran # (Auto) 0.02 LA PTT Screen 40 Protein C Activity 99 Protein S Activity 136 Antithrombin III Activ 92 Sodium 139 Potassium 3.5 Chloride 108 H Carbon Dioxide 25 Anion Gap 6 BUN 15 Creatinine 0.85 Est Cr Clr Drug Dosing 144.0 Est GFR ( Amer) 122.0 Est GFR (Non-Af Amer) 105.2 BUN/Creatinine Ratio 17.6 Glucose 141 H Calcium 9.3 Beta-2-GPI IgG Ab <2.0 Beta-2-GPI IgM Ab <2.0 Anti-Cardiolipin IgG Ab <2.0 Anti-Cardiolipin IgM Ab <2.0 Current Inpatient Medications Current Inpatient Medications: Current Inpatient Medications Acetaminophen (Acetaminophen 325 Mg Tab) 650 mg PO Q4H PRN PRN Reason: Pain Stop: 06/14/22 05:48 Last Admin: 05/22/22 20:38 Dose: 650 mg Amlodipine Besylate (Amlodipine Besylate 5 Mg Tab) 5 mg PO QAM [facility] Stop: 06/16/22 08:59 Last Admin: 05/24/22 08:37 Dose: 5 mg Aspirin (Aspirin 81 Mg Ectab) 81 mg PO QAM [facility] Stop: 06/14/22 08:59 Last Admin: 05/24/22 08:37 Dose: 81 mg Atorvastatin Calcium (Atorvastatin 20 Mg Tab) 20 mg PO HS [facility] Stop: 06/14/22 20:59 Last Admin: 05/24/22 00:50 Dose: 20 mg Benztropine Mesylate (Benztropine Mesylate 1 Mg Tab) 1 mg PO BID [facility] Stop: 06/22/22 20:59 Last Admin: 05/24/22 08:37 Dose: 1 mg Carvedilol (Carvedilol 6.25 Mg Tab) 6.25 mg PO BID [facility] Stop: 06/18/22 20:59 Last Admin: 05/24/22 08:37 Dose: 6.25 mg Diphenhydramine HCl (Diphenhydramine 50 Mg/Ml Vial) 50 mg IM DAILY PRN PRN Reason: Agitation Stop: 06/22/22 12:06 Last Admin: 05/23/22 16:00 Dose: 50 mg Diphenhydramine HCl (Diphenhydramine 50 Mg/Ml Vial) 25 mg IV Q6 PRN PRN Reason: Agitation Stop: 06/22/22 17:17 Enoxaparin Sodium (Enoxaparin Inj 40 Mg/0.4 Ml Syr) 40 mg SQ QAM [facility] Stop: 06/14/22 08:59 Last Admin: 05/24/22 08:43 Dose: 40 mg Haloperidol Lactate (Haloperidol Lactate 5 Mg/Ml 1 Ml Vial) 5 mg IM Q6H PRN PRN Reason: Agitation Stop: 06/22/22 12:06 Hydrocortisone (Hydrocortisone 1% Crm 30 Gm Tube) 1 appln EXT TID [facility] Stop: 06/14/22 08:59 Last Admin: 05/24/22 08:38 Dose: 1 appln Promethazine HCl 12.5 mg/ (Sodium Chloride) 50.5 mls @ 202 mls/hr IV Q6H PRN PRN Reason: Nausea And Vomiting Stop: 06/14/22 05:48 Lorazepam 0.5 mg/ Syringe 0.5 mls @ 2 mls/min IV Q6H PRN PRN Reason: Anxiety Stop: 06/22/22 16:28 Linaclotide (Linaclotide 145 Mcg Capsule) 290 mcg PO DAILY [facility] Stop: 06/14/22 08:59 Last Admin: 05/24/22 08:37 Dose: 290 mcg Loratadine (Loratadine 10 Mg Tab) 10 mg PO QAM [facility] Stop: 06/15/22 08:59 Last Admin: 05/24/22 08:37 Dose: 10 mg Lorazepam (Lorazepam 1 Mg Tab) 1 mg PO TID PRN PRN Reason: Anxiety/Agitation/Insomnia Stop: 06/22/22 12:06 Last Admin: 05/23/22 12:25 Dose: 1 mg Lorazepam (Lorazepam 2 Mg/2 Ml Syr) 1 mg IM DAILY PRN; Protocol PRN Reason: Agitation Stop: 06/22/22 12:06 Last Admin: 05/23/22 15:25 Dose: 1 mg Mupirocin (Mupirocin 2% Oint 22 Gm Tube) 1 appln TOP BID [facility] Stop: 06/14/22 08:59 Last Admin: 05/24/22 08:39 Dose: 1 appln Quetiapine Fumarate (Quetiapine Fumarate 300 Mg Tablet) 600 mg PO HS [facility] Stop: 06/22/22 20:59 Last Admin: 05/24/22 00:50 Dose: 600 mg Spironolactone (Spironolactone 25 Mg Tab) 25 mg PO QAM [facility] Stop: 06/19/22 08:59 Last Admin: 05/24/22 08:37 Dose: 25 mg
--- NOTE | 2022-05-24 13:58 | Hospitalist Progress Note ---
Date of Service May 24, 2022 Assessment & Plan (1) Encephalopathy: Plan: Possible metabolic encephalopathy secondary to hyponatremia, psych meds? Recent acute CVA, left MCA (April 2022) History of recurrent stroke History of schizoaffective disorder/anxiety/mood disorder, unknown status Patient brought into the ER from the [facility], for worsening confusion at the [facility] 1) Metabolic encephalopathy, resolved 2) Hx of Recurrent Stroke CT head on admission On 05/14: 1. Acute infarct of the left temporal parietal lobe. 2. Chronic left occipital infarct. 3. No acute intracranial hemorrhage or midline shift. Repeat CT scan on 05/16 and 05/21 showed no acute changes. Urine drug screen:Marijuana TEEno cardiac source of emboli identified. No significant atheromatous disease in proximal ascending aorta, aortic arch and descending thoracic aorta Telemetry shows sinus tachycardia; no arrhythmia noted since admission. Plan: Continue on aspirin 81 mg and Lipitor at bedtime for secondary stroke prevention as per neurology. Estrogen replacement therapy stopped due to increase the risk of ischemic cerebrovascular accident. Hypercoagulable work-up sent; to follow-up in neurology clinic. 3) Schizoaffective disorder: Was admitted to [facility] prior to admission given her psychiatric history. Plan: Psychiatry on board. Patient mentation had initially improved and patient was changed from 1-1 sitter to every 15 checks. However, on the night of 22 May; patient became restless agitated and said that she had suicidal ideation. One-to-one sitter ordered again. Patient will need inpatient psychiatry admission. -Patient started on Seroquel 600 at bedtime. Also on Ativan p.o. 3 times daily as needed for agitation/anxiety. For behavior emergency; Haldol 5 mg, Benadryl 50 mg and Ativan 2 mg IM. 4) Urinary Retention Trial of void done on 05/18; successful. Urine analysis - no infection 5) Mild hyponatremia Improved from 130, to 137 with IV fluids 6) Scabies infestation Pruritic rash involving patient's extremities and trunk Resolved off isolation 7) Hypertension -- Amlodipine increased to 5 mg p.o. daily Coreg added and dose increased to 6.25 due to tachycardia. 8) Hyperlipidemia on statin Rx Male to female transgender person, --patient transdermal estrogen resumed at the [facility] -- Hold estrogen per neurology service history IVDU prediabetes, hemoglobin A1c of 5.8 hemoglobin A1c of 5.8 last April 2022 ongoing tobacco abuse hx HCV unknown status DVT prophylaxis per Lovenox subcu Full code Patient has recent history of stroke which resulted in mixed aphasia. Her work-up in the hospital was remarkable for hyponatremia which has improved. Imaging done since the hospitalization did not show any sign of new stroke and stable compared to her previous imaging. Her aphasia has improved during the hospitalization as well. She is medically stable for discharge. She will need outpatient neurology follow-up after psychiatric stabilization. Admission and Anticipated Discharge Date Admission Date: May 15, 2022 Subjective Patient was calmer overnight. She was seen and examined at bedside. Dimitris reports that Seroquel has helped her. Patient is on one-to-one observation. Review of Systems Review of Systems: All systems reviewed & are unremarkable except as noted in Subjective Physical Exam Physical Exam: General-agitated. Her aphasia has slightly improved. Eyes- anicteric Neck- no JVD Lungs- clear breath sounds bilaterally, no rales/wheezes Heart- normal rate, regular rhythm; no murmurs Abdomen- normal bowel sounds, nondistended, soft, nontender Extremities- no pretibial edema, no calf tenderness Neuro- alert, seems to be oriented; improvement in aphasia since admission. With word salad Otherwise no new gross focal neurologic Skin- warm & dry Results & Data Results & Data ([facility]) Vital Signs (Past 12 Hours) Vital Signs Temp Pulse Pulse Resp BP Pulse Ox O2 Del Method 05/24/22 11:36 Room Air 05/24/22 08:13 88 05/24/22 07:34 36.5 C 117 H 18 127/89 96 Room Air 05/24/22 05:00 05/24/22 03:48 36.5 C 83 16 117/79 98 Room Air O2 Del Method 05/24/22 11:36 05/24/22 08:13 05/24/22 07:34 05/24/22 05:00 Room Air 05/24/22 03:48 Laboratory Results Laboratory Results WBC 5.79 K/ul (4.8-10.8) 05/24/22 10:01 RBC 4.51 M/uL (4.63-6.08) L 05/24/22 10:01 Hgb 14.9 g/dl (14.0-18.0) 05/24/22 10:01 Hct 42.5 % (40.1-51.0) 05/24/22 10:01 MCV 94.2 fL (80.0-100.0) 05/24/22 10:01 MCH 33.0 pg (25.0-34.0) 05/24/22 10:01 MCHC 35.1 g/dL (32.0-36.0) 05/24/22 10:01 RDW Std Deviation 42.5 fL (36.4-46.3) 05/24/22 10:01 RDW Coeff of Grazyna 12.2 % (11.5-14.5) 05/24/22 10:01 Plt Count 131 K/uL (130-400) 05/24/22 10:01 MPV 10.8 fL (9.4-12.4) 05/24/22 10:01 Immature Gran % (Auto) 0.3 % 05/24/22 10:01 Neut % (Auto) 56.7 % 05/24/22 10:01 Lymph % (Auto) 28.3 % 05/24/22 10:01 [place] % (Auto) 10.4 % 05/24/22 10:01 Eos % (Auto) 3.3 % 05/24/22 10:01 Baso % (Auto) 1.0 % 05/24/22 10:01 Neut # (Auto) 3.28 K/uL (1.4-6.5) 05/24/22 10:01 Lymph # (Auto) 1.64 K/uL (1.2-3.4) 05/24/22 10:01 [place] # (Auto) 0.60 K/uL (0.24-0.82) 05/24/22 10:01 Eos # (Auto) 0.19 K/uL (0-0.50) 05/24/22 10:01 Baso # (Auto) 0.06 K/uL (0-0.2) 05/24/22 10:01 Immature Gran # (Auto) 0.02 K/uL (0.00-0.02) 05/24/22 10:01 Polychromasia 1+ 05/19/22 05:42 ESR 11 mm/hr (0-15) 05/21/22 05:54 PT 11.7 Seconds (9.0-12.0) 05/15/22 02:23 INR 1.1 (0.9-1.1) 05/15/22 02:23 APTT 28.3 Seconds (21.0-31.0) 05/15/22 02:23 PTT Ratio 1.0 05/15/22 02:23 LA PTT Screen 40 sec (<=40) 05/16/22 08:46 Protein C Activity 99 % normal (70-180) 05/16/22 08:46 Protein S Activity 136 % normal (70-150) 05/16/22 08:46 Antithrombin III Activ 92 % normal (80-135) 05/16/22 08:46 Factor V Leiden Mutat NEGATIVE 05/16/22 08:46 Factor V Leiden Interp See Below 05/16/22 08:46 Sodium 139 mmol/L (136-145) 05/24/22 10:01 Potassium 3.5 mmol/L (3.5-5.1) 05/24/22 10:01 Chloride 108 mmol/L (98-107) H 05/24/22 10:01 Carbon Dioxide 25 mmol/L (21-32) 05/24/22 10:01 Anion Gap 6 (3-11) 05/24/22 10:01 BUN 15 mg/dl (6-23) 05/24/22 10:01 Creatinine 0.85 mg/dl (0.6-1.4) 05/24/22 10:01 Est Cr Clr Drug Dosing 144.0 ml/min 05/24/22 10:01 Est GFR ( Amer) 122.0 ml/min 05/24/22 10:01 Est GFR (Non-Af Amer) 105.2 ml/min 05/24/22 10:01 BUN/Creatinine Ratio 17.6 (10-20) 05/24/22 10:01 Glucose 141 mg/dl (70-99(Fasting)) H 05/24/22 10:01 Calcium 9.3 mg/dl (8.5-10.1) 05/24/22 10:01 Magnesium 2.1 mg/dl (1.7-2.4) 05/15/22 01:21 Total Bilirubin 1.1 mg/dl (0.2-1.0) H 05/15/22 01:21 AST 27 U/L (13-39) 05/15/22 01:21 ALT 41 U/L (7-52) 05/15/22 01:21 Alkaline Phosphatase 65 U/L (34-104) 05/15/22 01:21 Ammonia 26.0 umol/L (18-72) 05/15/22 04:02 Troponin I High Sens 3.8 pg/ml (0-20) 05/15/22 01:21 Total Protein 7.2 gm/dl (6.0-8.3) 05/15/22 01:21 Albumin 4.4 gm/dl (3.4-5.0) 05/15/22 01:21 Globulin 2.8 gm/dl (2.5-4.0) 05/15/22 01:21 Albumin/Globulin Ratio 1.6 (0.9-2) 05/15/22 01:21 Triglycerides 77 mg/dl (0-150) 05/19/22 05:42 Cholesterol 105 mg/dl (0-200) 05/19/22 05:42 LDL Cholesterol, Calc 58 mg/dl 05/19/22 05:42 VLDL Cholesterol, Calc 15 mg/dl (0-30) 05/19/22 05:42 HDL Cholesterol 32 mg/dl 05/19/22 05:42 Cholesterol/HDL Ratio 3.3 (0-5) 05/19/22 05:42 Homocysteine 13.0 umol/L (<11.4) H 05/16/22 08:46 TSH 0.858 uIu/ml (0.300-4.500) 05/15/22 04:02 Urine Color Yellow 05/20/22 20: Urine Appearance Clear (Clear) 05/20/22 20: Urine pH 6.5 (4.5-7.5) 05/20/22 20:22 Ur Specific [place] 1.013 (1.000-1.030) 05/20/22 20: Urine Protein Negative (Negative) 05/20/22 20: Urine Glucose (UA) Negative (Negative) 05/20/22 20: Urine Ketones Negative (Negative) 05/20/22 20:22 Urine Blood Negative (Negative) 05/20/22 20: Urine Nitrite Negative (Negative) 05/20/22 20: Urine Bilirubin Negative (Negative) 05/20/22 20:22 Urine Urobilinogen Negative (Negative) 05/20/22 20:22 Ur Leukocyte Esterase Negative (Negative) 05/20/22 20:22 Urine Opiates Screen Neg (Neg) 05/15/22 01:40 Ur Methadone, Qual Neg (Neg) 05/15/22 01:40 Urine Barbiturates Neg (Neg) 05/15/22 01:40 Ur Phencyclidine (PCP) Neg (Neg) 05/15/22 01:40 U Amphetamin/Meth Scrn Neg (Neg) 05/15/22 01:40 MDMA (Ecstasy) Screen Neg (Neg) 05/15/22 01:40 U Benzodiazepines Scrn Neg (Neg) 05/15/22 01:40 Ur Cocaine Metabolite Neg (Neg) 05/15/22 01:40 U Marijuana (THC) Screen Pos (Neg) H 05/15/22 01:40 U Marijuana THC Carboxy 32 ng/mL (<5) H 05/15/22 01:40 Drug Screen Comment SEE NOTE 05/15/22 01:40 Beta-2-GPI IgG Ab <2.0 U/mL (<20.0) 05/16/22 08:46 Beta-2-GPI IgM Ab <2.0 U/mL (<20.0) 05/16/22 08:46 Anti-Cardiolipin IgG Ab <2.0 GPL-U/mL 05/16/22 08:46 Anti-Cardiolipin IgM Ab <2.0 MPL-U/mL 05/16/22 08:46 SARS-CoV-2, RNA, NAAT NEGATIVE (NEGATIVE) 05/15/22 00:35 Prothrombin Gene Mutate NEGATIVE 05/16/22 08:46 Prothromb Gene Comment See Below 05/16/22 08:46 Impressions Chest X-Ray 05/15/22 02:27 XR chest 1V portable CLINICAL HISTORY: hyponatremia. COMPARISON STUDY: No previous studies for comparison. FINDINGS: Patient is mildly rotated. This likely accounts for slight asymmetric right lung opacity. Lung volumes are normal. Lungs are clear. No pulmonary nodules are noted although sensitivity is diminished given radiographic technique. There is no pneumothorax or pleural effusion. Cardiac size is normal. Mediastinal contours are normal. There is no evidence for pulmonary edema. IMPRESSION: No acute cardiopulmonary findings. ACT 112: Negative or not required by law. Electronically signed by: Jamie Jc M.D. 05/15/2022 6:[address] 05/21/22 03:[address] DOSE: 614.27 mGy.cm HISTORY: severe headache. recent stroke. TECHNIQUE: Multiaxial CT images of the head were performed without the use of i ntravenous contrast. Automated exposure control was utilized for this study. A dose lowering technique was utilized adhering to the principles of ALARA. Comparison: Head CT 05/16/2022. Findings: The paranasal sinuses and mastoid air cells are clear. The ventricles and sulci are within normal limits. There is an old left [employer] territory infarct, unchanged. Focal area of hypodensity within the left temporoparietal lobe again noted consistent with an acute to subacute MCA territory infarct. This is similar to the prior study. No evidence for hemorrhagic transformation or midline shift. Impression: 1. Redemonstration of the left temporoparietal lobe acute to subacute infarct. No evidence for hemorrhagic transformation. 2. Old left MICRO[employer]Y [employer]IL [employer] territory infarct again noted. ACT 112: Negative or not required by law. Electronically signed by: Jones Vazquez M.D. 05/21/2022 7:07 AM
[2022-05-24] MEDS: LORazepam 1 MG TAB PO PRN (15:32)
[2022-05-25 07:38] LABS: BUN Creatinine Ratio 16.7 (10-20); Calcium 9.1 mg/dl (8.5-10.1); Est GFR (African American) 130.6 ml/min; Est GFR (Non-African American) 112.7 ml/min; Potassium 3.8 mmol/L (3.5-5.1)
[2022-05-25 07:57] LABS: Basophils # (auto) 0.06 K/uL (0-0.2); Eosinophils # (auto) 0.25 K/uL (0-0.50); Hematocrit (blood only) 41.8 % (40.1-51.0); Hemoglobin 14.5 g/dl (14.0-18.0); Immature Granulocytes # (auto) 0.03 K/uL (0.00-0.02); Immature Granulocytes % (auto) 0.5 %; Lymphocytes # (auto) 2.45 K/uL (1.2-3.4); Lymphocytes % (auto) 39.1 %; Mean Corpuscular Hemoglobin 32.5 pg (25.0-34.0); Mean Corpuscular Hgb Conc 34.7 g/dL (32.0-36.0); Mean Corpuscular Volume 93.7 fL (80.0-100.0); Mean Platelet Volume 10.9 fL (9.4-12.4); Monocytes # (auto) 0.71 K/uL (0.24-0.82); Monocytes % (auto) 11.3 %; Neutrophils # (auto) 2.77 K/uL (1.4-6.5); Neutrophils % (auto) 44.1 %; Platelet Count 135 K/uL (130-400); RDW Standard Deviation 41.3 fL (36.4-46.3); Red Blood Count 4.46 M/uL (4.63-6.08); White Blood Count 6.27 K/ul (4.8-10.8)
[2022-05-25] MEDS: amLODIPine BESYLATE 5 MG TAB PO SCH (08:09)
[2022-05-25] MEDS: SPIRONOLACTONE 25 MG TAB PO SCH (08:09)
[2022-05-25] MEDS: carvediloL 6.25 MG TAB PO SCH ×2 (08:09→20:00)
[2022-05-25] MEDS: LINACLOTIDE 145 MCG CAPSULE PO SCH (08:09)
[2022-05-25] MEDS: BENZTROPINE MESYLATE 1 MG TAB PO SCH ×2 (08:09→20:00)
[2022-05-25] MEDS: ASPIRIN 81 MG ECTAB PO SCH (08:10)
[2022-05-25] MEDS: LORazepam 1 MG TAB PO PRN ×2 (08:10→15:22)
[2022-05-25] MEDS: LORATADINE 10 MG TAB PO SCH (08:10)
[2022-05-25] MEDS: MUPIROCIN 2% OINT 22 GM TUBE TOP SCH ×2 (08:11→21:56)
[2022-05-25] MEDS: HYDROCORTISONE 1% CRM 30 GM TUBE EXT SCH ×3 (08:11→20:01)
[2022-05-25] MEDS: ENOXAPARIN INJ 40 MG/0.4 ML SYR SQ SCH (10:17)
--- NOTE | 2022-05-25 13:56 | Psychiatric Progress Note ---
Date of Service May 25, 2022 Impression / Recommendations Impression 47 yo transgender woman s/p MCA stroke with expressive aphasia, treated for scabies, increasingly agitated following stroke and then med changes at the [facility] (significant dose reduction in Seroquel, titration of Effexor XR in a patient with schizoaffective disorder, bipolar type and/or side effects to Keppra) Now presenting with symptoms of psychosis, poor sleep, and rapid speech concerning for acute tiffanie. 05/24/22: improvement in mood and sleep with recent medication changes. No longer with SI. No agitation or acute behavioral events. If progress continues goal for acute rehab therapy for post-stroke recovery. (1) Schizoaffective disorder: Plan 05/24/22: Continue bed search, though improving with medication change. Continue with 1-on-1 due to 302 but no longer with SI. 05/23/22: Continue bed search, remains on 1-on-1. Continue current medications. 05/22/22: -1-on-1 given SI -Will start voluntary psych inpt bed search -Stop zyprexa 10mg qhs and restart seroquel 600mg qhs -Restart prior to admission cogentin 1mg BID -Start ativan 1mg po TID prn for agitation/anxiety due to symptoms of tiffanie -For behavioral emergency would use: haldol 5mg, benadryl 50mg, ativan 2mg IM, monitor QTc 05/21/22: -Not felt to need 1-on-1 for psychiatric safety, discretion of hospitalist as apparently patient has required for fall risk at times/impulsivity s/p stroke -PT/OT evals in progress, plan likely for acute rehab for post-stroke treatment once medically stable -No current indications for need for inpatient psychiatric admission, psyc hiatric stability will be best addressed with therapy targeted at improving speech and motor skills s/p stroke -cannot leave hospital AMA without additional safety and aftercare planning if should attempt to leave prior to completion of medical course given history of decompensation Interval History Identifying Information 47 yo transgender woman from [facility] with recent CVA in late April 2022 admitted medically on 05/14, three days into [facility] hospitalization for increase in agitation. Psychiatry consulted for disposition and medication recommendations. Chief Complaint "I'm better my medications are working well". Review of Systems Notes reports stable and appetite Subjective Subjective Patient was seen & assessed and interval progress reviewed. No behavioral events overnight. Has been denying SI consistently, continues to deny. Feels her mood is improved and no longer having "those weird scary thoughts" since getting back on the seroquel and her other prior medications. No longer on contact precautions. Hopeful to get help working on speech and strength from her stroke. Procedures Performed Operation Date: 05/18/22 08:00 Actual Procedures p Echo Transesophageal - Todd Bueno DO s Echo Doppler Complete - DO jude Miguel Echo Color Flow - Todd Bueno DO Physical Exam Psychiatric Orientation: oriented x 3 Apperance: appropriately dressed and appropriately groomed Eye Contact: good eye contact Motor Behavior: no abnormal motor movements Speech: + abnormal rate/rhythm/volume of speech (expressive aphasia but improving, normal rate) Affect: + anxious affect Mood: + anxious mood; no depressed mood and no irritable mood Thought Process: + perseveration Thought Content: reality based without delusions; not paranoid Suicidal Thoughts: denies suicidal thoughts, denies suicidal plan and denies suicidal intent Homicidal Thoughts: denies homicidal thoughts Hallucinations: no auditory hallucinations and no visual hallucinations Cognition: recent memory grossly intact, attention grossly intact and language grossly intact Insight: + limited insight Judgement: + limited judgement Vital Signs (Past 24 Hours) Last Vital Signs Temp 36.7 C 05/25/22 11:37 Pulse 87 05/25/22 11:37 Resp 17 05/25/22 11:37 BP 126/84 05/25/22 11:37 Pulse Ox 96 05/25/22 11:37 O2 Del Method 05/25/22 11:37 O2 Flow Rate 4 05/18/22 08:55 Results & Data ([facility]) Laboratory Results Laboratory Results - last 24 hr 05/25/22 05/25/22 06:34 06:34 WBC 6.27 RBC 4.46 L Hgb 14.5 Hct 41.8 MCV 93.7 MCH 32.5 MCHC 34.7 RDW Std Deviation 41.3 RDW Coeff of Grazyna 12.0 Plt Count 135 MPV 10.9 Immature Gran % (Auto) 0.5 Neut % (Auto) 44.1 Lymph % (Auto) 39.1 [place] % (Auto) 11.3 Eos % (Auto) 4.0 Baso % (Auto) 1.0 Neut # (Auto) 2.77 Lymph # (Auto) 2.45 [place] # (Auto) 0.71 Eos # (Auto) 0.25 Baso # (Auto) 0.06 Immature Gran # (Auto) 0.03 H Sodium 137 Potassium 3.8 Chloride 108 H Carbon Dioxide 24 Anion Gap 5 BUN 12 Creatinine 0.72 Est Cr Clr Drug Dosing 172.0 Est GFR ( Amer) 130.6 Est GFR (Non-Af Amer) 112.7 BUN/Creatinine Ratio 16.7 Glucose 113 H Calcium 9.1 Current Inpatient Medications Current Inpatient Medications: Current Inpatient Medications Acetaminophen (Acetaminophen 325 Mg Tab) 650 mg PO Q4H PRN PRN Reason: Pain Stop: 06/14/22 05:48 Last Admin: 05/22/22 20:38 Dose: 650 mg Amlodipine Besylate (Amlodipine Besylate 5 Mg Tab) [facility] Stop: 06/16/22 08:59 Last Admin: 05/25/22 08:09 Dose: 5 mg Aspirin (Aspirin 81 Mg Ectab) 81 mg [facility] Stop: 06/14/22 08:59 Last Admin: 05/25/22 08:10 Dose: 81 mg Atorvastatin Calcium (Atorvastatin 20 Mg Tab) 20 mg PO HS [facility] Stop: 06/14/22 20:59 Last Admin: 05/24/22 22:17 Dose: 20 mg Benztropine Mesylate (Benztropine Mesylate 1 Mg Tab) 1 mg PO BID [facility] Stop: 06/22/22 20:59 Last Admin: 05/25/22 08:09 Dose: 1 mg Carvedilol (Carvedilol 6.25 Mg Tab) 6.25 mg PO BID [facility] Stop: 06/18/22 20:59 Last Admin: 05/25/22 08:09 Dose: 6.25 mg Diphenhydramine HCl (Diphenhydramine 50 Mg/Ml Vial) 50 mg IM DAILY PRN PRN Reason: Agitation Stop: 06/22/22 12:06 Last Admin: 05/23/22 16:00 Dose: 50 mg Enoxaparin Sodium (Enoxaparin Inj 40 Mg/0.4 Ml Syr) 40 mg SQ QAM [facility] Stop: 06/14/22 08:59 Last Admin: 05/25/22 10:17 Dose: Not Given Haloperidol Lactate (Haloperidol Lactate 5 Mg/Ml 1 Ml Vial) 5 mg IM Q6H PRN PRN Reason: Agitation Stop: 06/22/22 12:06 Hydrocortisone (Hydrocortisone 1% Crm 30 Gm Tube) 1 appln EXT TID [facility]ILAN Stop: 06/14/22 08:59 Last Admin: 05/25/22 08:11 Dose: 1 appln Promethazine HCl 12.5 mg/ (Sodium Chloride) 50.5 mls @ 202 mls/hr IV Q6H PRN PRN Reason: Nausea And Vomiting Stop: 06/14/22 05:48 Lorazepam 0.5 mg/ Syringe 0.5 mls @ 2 mls/min IV Q6H PRN PRN Reason: Anxiety Stop: 06/22/22 16:28 Last Admin: 05/24/22 18:24 Dose: 2 mls/min Linaclotide (Linaclotide 145 Mcg Capsule) 290 mcg PO DAILY [facility] Stop: 06/14/22 08:59 Last Admin: 05/25/22 08:09 Dose: 290 mcg Loratadine (Loratadine 10 Mg Tab) 10 mg PO QAM [facility] Stop: 06/15/22 08:59 Last Admin: 05/25/22 08:10 Dose: 10 mg Lorazepam (Lorazepam 1 Mg Tab) 1 mg PO TID PRN PRN Reason: Anxiety/Agitation/Insomnia Stop: 06/22/22 12:06 Last Admin: 05/25/22 08:10 Dose: 1 mg Lorazepam (Lorazepam 2 Mg/2 Ml Syr) 1 mg IM DAILY PRN; Protocol PRN Reason: Agitation Stop: 06/22/22 12:06 Last Admin: 05/23/22 15:25 Dose: 1 mg Mupirocin (Mupirocin 2% Oint 22 Gm Tube) 1 appln TOP BID [facility] Stop: 06/14/22 08:59 Last Admin: 05/25/22 08:11 Dose: 1 appln Quetiapine Fumarate (Quetiapine Fumarate 300 Mg Tablet) 600 mg PO HS [facility] Stop: 06/22/22 20:59 Last Admin: 05/24/22 22:17 Dose: 600 mg Spironolactone (Spironolactone 25 Mg Tab) 25 mg PO QAM [facility] Stop: 06/19/22 08:59 Last Admin: 05/25/22 08:09 Dose: 25 mg
--- NOTE | 2022-05-25 17:07 | Hospitalist Progress Note ---
Date of Service May 25, 2022 Assessment & Plan (1) Encephalopathy: Plan: Possible metabolic encephalopathy secondary to hyponatremia, psych meds? Recent acute CVA, left MCA (April 2022) History of recurrent stroke History of schizoaffective disorder/anxiety/mood disorder, unknown status Patient brought into the ER from the [facility], for worsening confusion at the [facility] 1) Metabolic encephalopathy, resolved 2) Hx of Recurrent Stroke CT head on admission On 05/14: 1. Acute infarct of the left temporal parietal lobe. 2. Chronic left occipital infarct. 3. No acute intracranial hemorrhage or midline shift. Repeat CT scan on 05/16 and 05/21 showed no acute changes. Urine drug screen:Marijuana TEEno cardiac source of emboli identified. No significant atheromatous disease in proximal ascending aorta, aortic arch and descending thoracic aorta Telemetry shows sinus tachycardia; no arrhythmia noted since admission. Plan: Continue on aspirin 81 mg and Lipitor at bedtime for secondary stroke prevention as per neurology. Estrogen replacement therapy stopped due to increase the risk of ischemic cerebrovascular accident. Hypercoagulable work-up sent; to follow-up in neurology clinic. 3) Schizoaffective disorder: Suicidal ideation Was admitted to [facility] prior to admission given her psychiatric history. denies any suicidal thought Continue with 1-on-1 due to 302 but no longer with SI. Conitnue Seroquel 600 at bedtime. Ativan p.o. 3 times daily as needed for agitation/anxiety. For behavior emergency; Haldol 5 mg, Benadryl 50 mg and Ativan 2 mg IM. 4) Urinary Retention Trial of void done on 05/18; successful. Urine analysis - no infection 5) Mild hyponatremia Improved from 130, to 137 with IV fluids 6) Scabies infestation Pruritic rash involving patient's extremities and trunk Resolved off isolation 7) Hypertension -- Amlodipine increased to 5 mg p.o. daily Coreg added and dose increased to 6.25 due to tachycardia. 8) Hyperlipidemia on statin Rx Male to female transgender person, --patient transdermal estrogen resumed at the [facility] -- Hold estrogen per neurology service history IVDU prediabetes, hemoglobin A1c of 5.8 hemoglobin A1c of 5.8 last April 2022 ongoing tobacco abuse hx HCV unknown status DVT prophylaxis per Lovenox subcu Full code Admission and Anticipated Discharge Date Admission Date: May 15, 2022 Subjective Pt was seen and examined at bedside Lying in bed with no acute distress with 1 to 1 observation Pt said that she feels much better She denies any suicidal thought Denies any chest pain, palpitation, dizziness and SOB Review of Systems Review of Systems: All systems reviewed & are unremarkable except as noted in Subjective Physical Exam Physical Exam: General- No acute distress Head- atraumatic Eyes- PERRL, EOMI, ENT- oropharynx clear Neck- supple, no JVD Lungs- clear to auscultation Heart- regular rhythm; no murmur Abdomen- normal bowel sounds, soft, nontender Extremities- no calf tenderness Neuro- alert, oriented x 3; PERRL, EOMI; no facial palsy; no dysarthria Skin- warm & dry Results & Data Results & Data ([facility]) Vital Signs (Past 12 Hours) Vital Signs Temp Pulse Pulse Resp BP Pulse Ox O2 Del Method 05/25/22 16:02 104 H 05/25/22 14:18 36.5 C 103 H 17 133/88 95 Room Air 05/25/22 10:00 Room Air 05/25/22 11:37 36.7 C 87 17 126/84 96 Room Air 05/25/22 07:43 103 H 05/25/22 07:16 36.6 C 103 H 20 134/93 96 Room Air
[2022-05-25] MEDS: QUEtiapine FUMARATE 300 MG TABLET PO SCH (19:59)
[2022-05-25] MEDS: ATORVASTATIN 20 MG TAB PO SCH (20:00)
[2022-05-26] MEDS: ENOXAPARIN INJ 40 MG/0.4 ML SYR SQ SCH (07:59)
[2022-05-26] MEDS: amLODIPine BESYLATE 5 MG TAB PO SCH (08:00)
[2022-05-26] MEDS: BENZTROPINE MESYLATE 1 MG TAB PO SCH ×2 (08:00→22:57)
[2022-05-26] MEDS: ASPIRIN 81 MG ECTAB PO SCH (08:00)
[2022-05-26] MEDS: LORATADINE 10 MG TAB PO SCH (08:01)
[2022-05-26] MEDS: SPIRONOLACTONE 25 MG TAB PO SCH (08:01)
[2022-05-26] MEDS: LINACLOTIDE 145 MCG CAPSULE PO SCH (08:01)
[2022-05-26] MEDS: carvediloL 6.25 MG TAB PO SCH ×2 (08:01→22:58)
[2022-05-26] MEDS: MUPIROCIN 2% OINT 22 GM TUBE TOP SCH ×2 (08:05→23:06)
[2022-05-26] MEDS: HYDROCORTISONE 1% CRM 30 GM TUBE EXT SCH ×3 (08:05→23:05)
[2022-05-26] MEDS: LORazepam 1 MG TAB PO PRN ×2 (10:33→17:26)
--- NOTE | 2022-05-26 11:59 | Psychiatric Progress Note ---
Date of Service May 26, 2022 Impression / Recommendations Impression 47 yo transgender woman s/p MCA stroke with expressive aphasia, treated for scabies, increasingly agitated following stroke and then med changes at the [facility] (significant dose reduction in Seroquel, titration of Effexor XR in a patient with schizoaffective disorder, bipolar type and/or side effects to Keppra). Destabilized after some medication changes requiring 302 commitment but now psychiatrically stable, denying SI consistently and no recent delusions nor paranoia and with stable sleep. No longer requires inpatient psychiatric treatment and no longer meets 302 criteria. She is interested in acute rehab for post stroke care which is appropriate at this time. 05/25/22: stable mood and sleep. Tolerating medications well. No safety concerns, acute risk of self-harm is low. Recommend proceeding with original plan of acute acute rehab therapy for post-stroke recovery now that she is psychiatrically stable. (1) Schizoaffective disorder: Plan 05/25/22: Discontinue 1-on-1. No longer on 302 commitment. Proceed with case management efforts for acute rehab for post-stroke care. 05/24/22: Continue bed search, though improving with medication change. Continue with 1-on-1 due to 302 but no longer with SI. 05/23/22: Continue bed search, remains on 1-on-1. Continue current medications. 05/22/22: -1-on-1 given SI -Will start voluntary psych inpt bed search -Stop zyprexa 10mg qhs and restart seroquel 600mg qhs -Restart prior to admission cogentin 1mg BID -Start ativan 1mg po TID prn for agitation/anxiety due to symptoms of tiffanie -For behavioral emergency would use: haldol 5mg, benadryl 50mg, ativan 2mg IM, monitor QTc 05/21/22: -Not felt to need 1-on-1 for psychiatric safety, discretion of hospitalist as apparently patient has required for fall risk at times/impulsivity s/p stroke -PT/OT evals in progress, plan likely for acute rehab for post-stroke treatment once medically stable -No current indications for need for inpatient psychiatric admission, psychiatric stability will be best addressed with therapy targeted at improving speech and motor skills s/p stroke -cannot leave hospital AMA without additional safety and aftercare planning if should attempt to leave prior to completion of medical course given history of decompensation Interval History Identifying Information 47 yo transgender woman from [facility] with recent CVA in late April 2022 admitted medically on 05/14, three days into [facility] hospitalization for increase in agitation. Psychiatry consulted for disposition and medication recommendations. Chief Complaint "I'm doing great, I'm ready to get stronger and work on my speech". Review of Systems Notes see subjective Subjective Subjective Patient was seen & assessed and interval progress reviewed. No behavioral events or agitation. Has been consistently denying SI for >24 hours. No further vocalized delusions, denies bolanos since medications were switched. Denies SI. Future focused on getting help for issues from stroke with speech and muscle coordination. Sleeping and eating well. Positive mood, watching shopping channel on TV and sharing in appropriate jokes about content. Denies medication side effects. Able to recite doses and names of psych medications she's taking. Procedures Performed Operation Date: 05/18/22 08:00 Actual Procedures p Echo Transesophageal - Todd Bueno DO s Echo Doppler Complete - Todd Bueno, s Echo Color Flow - Todd Bueno, DO Physical Exam Psychiatric Orientation: alert and oriented x 3 Apperance: appropriately dressed and appropriately groomed Eye Contact: good eye contact Motor Behavior: no abnormal motor movements Speech: + abnormal rate/rhythm/volume of speech (expressive aphasia but improving, normal rate) Affect: euthymic affect Mood: no depressed mood and no anxious mood Thought Process: + concrete thought process Thought Content: reality based without delusions Suicidal Thoughts: denies suicidal thoughts Homicidal Thoughts: denies homicidal thoughts Hallucinations: no auditory hallucinations and no visual hallucinations Cognition: recent memory grossly intact, attention grossly intact and language grossly intact Insight: + fair insight Judgement: + fair judgement Vital Signs (Past 24 Hours) Last Vital Signs Temp 36.7 C 05/26/22 11:24 Pulse 88 05/26/22 11:24 Resp 17 05/26/22 11:24 BP 113/76 05/26/22 11:24 Pulse Ox 94 05/26/22 11:24 O2 Del Method 05/26/22 11:24 O2 Flow Rate 4 05/18/22 08:55 Results & Data ([facility]) Current Inpatient Medications Current Inpatient Medications: Current Inpatient Medications Acetaminophen (Acetaminophen 325 Mg Tab) 650 mg PO Q4H PRN PRN Reason: Pain Stop: 06/14/22 05:48 Last Admin: 05/22/22 20:38 Dose: 650 mg Amlodipine Besylate (Amlodipine Besylate 5 Mg Tab) 5 mg PO QAM [facility] Stop: 06/16/22 08:59 Last Admin: 05/26/22 08:00 Dose: 5 mg Aspirin (Aspirin 81 Mg Ectab) 81 mg PO QAM [facility] Stop: 06/14/22 08:59 Last Admin: 05/26/22 08:00 Dose: 81 mg Atorvastatin Calcium (Atorvastatin 20 Mg Tab) 20 mg PO HS [facility] Stop: 06/14/22 20:59 Last Admin: 05/25/22 20:00 Dose: 20 mg Benztropine Mesylate (Benztropine Mesylate 1 Mg Tab) 1 mg PO BID [facility] Stop: 06/22/22 20:59 Last Admin: 05/26/22 08:00 Dose: 1 mg Carvedilol (Carvedilol 6.25 Mg Tab) 6.25 mg PO BID [facility] Stop: 06/18/22 20:59 Last Admin: 05/26/22 08:01 Dose: 6.25 mg Diphenhydramine HCl (Diphenhydramine 50 Mg/Ml Vial) 50 mg IM DAILY PRN PRN Reason: Agitation Stop: 06/22/22 12:06 Last Admin: 05/23/22 16:00 Dose: 50 mg Enoxaparin Sodium (Enoxaparin Inj 40 Mg/0.4 Ml Syr) 40 [facility] Stop: 06/14/22 08:59 Last Admin: 05/26/22 07:59 Dose: Not Given Haloperidol Lactate (Haloperidol Lactate 5 Mg/Ml 1 Ml Vial) 5 mg IM Q6H PRN PRN Reason: Agitation Stop: 06/22/22 12:06 Hydrocortisone (Hydrocortisone 1% Crm 30 Gm Tube) 1 appln EXT TID [facility] Stop: 06/14/22 08:59 Last Admin: 05/26/22 08:05 Dose: Not Given Promethazine HCl 12.5 mg/ (Sodium Chloride) 50.5 mls @ 202 mls/hr IV Q6H PRN PRN Reason: Nausea And Vomiting Stop: 06/14/22 05:48 Lorazepam 0.5 mg/ Syringe 0.5 mls @ 2 mls/min IV Q6H PRN PRN Reason: Anxiety Stop: 06/22/22 16:28 Last Admin: 05/24/22 18:24 Dose: 2 mls/min Linaclotide (Linaclotide 145 Mcg Capsule) 290 mcg PO DAILY [facility] Stop: 06/14/22 08:59 Last Admin: 05/26/22 08:01 Dose: 290 mcg Loratadine (Loratadine 10 Mg Tab) 10 mg PO QAM [facility] Stop: 06/15/22 08:59 Last Admin: 05/26/22 08:01 Dose: 10 mg Lorazepam (Lorazepam 1 Mg Tab) 1 mg PO TID PRN PRN Reason: Anxiety/Agitation/Insomnia Stop: 06/22/22 12:06 Last Admin: 05/26/22 10:33 Dose: 1 mg Lorazepam (Lorazepam 2 Mg/2 Ml Syr) 1 mg IM DAILY PRN; Protocol PRN Reason: Agitation Stop: 06/22/22 12:06 Last Admin: 05/23/22 15:25 Dose: 1 mg Mupirocin (Mupirocin 2% Oint 22 Gm Tube) 1 appln TOP BID [facility] Stop: 06/14/22 08:59 Last Admin: 05/26/22 08:05 Dose: Not Given Quetiapine Fumarate (Quetiapine Fumarate 300 Mg Tablet) 600 mg PO HS [facility] Stop: 06/22/22 20:59 Last Admin: 05/25/22 19:59 Dose: 600 mg Spironolactone (Spironolactone 25 Mg Tab) 25 mg PO QAM [facility] Stop: 06/19/22 08:59 Last Admin: 05/26/22 08:01 Dose: 25 mg
--- NOTE | 2022-05-26 18:22 | Hospitalist Progress Note ---
Date of Service May 26, 2022 Assessment & Plan (1) Encephalopathy: Plan: Possible metabolic encephalopathy secondary to hyponatremia, psych meds? Recent acute CVA, left MCA (April 2022) History of recurrent stroke History of schizoaffective disorder/anxiety/mood disorder, unknown status Patient brought into the ER from the [facility], for worsening confusion at the [facility] 1) Metabolic encephalopathy, resolved 2) Hx of Recurrent Stroke CT head on admission On 05/14: 1. Acute infarct of the left temporal parietal lobe. 2. Chronic left occipital infarct. 3. No acute intracranial hemorrhage or midline shift. Repeat CT scan on 05/16 and 05/21 showed no acute changes. Urine drug screen:Marijuana TEEno cardiac source of emboli identified. No significant atheromatous disease in proximal ascending aorta, aortic arch and descending thoracic aorta Telemetry shows sinus tachycardia; no arrhythmia noted since admission. Plan: Continue on aspirin 81 mg and Lipitor at bedtime for secondary stroke prevention as per neurology. Estrogen replacement therapy stopped due to increase the risk of ischemic cerebrovascular accident. Hypercoagulable work-up sent; to follow-up in neurology clinic. 3) Schizoaffective disorder: Suicidal ideation Was admitted to [facility] prior to admission given her psychiatric history. denies any suicidal thought Continue with 1-on-1 due to 302 but no longer with SI. One to one discontinued today as per psych Continue Seroquel 600 at bedtime. Ativan p.o. 3 times daily as needed for agitation/anxiety. For behavior emergency; Haldol 5 mg, Benadryl 50 mg and Ativan 2 mg IM. Ok from psych standpoint to discharge 4) Urinary Retention Trial of void done on 05/18; successful. Urine analysis - no infection 5) Mild hyponatremia Improved from 130, to 137 with IV fluids 6) Scabies infestation Pruritic rash involving patient's extremities and trunk Resolved off isolation 7) Hypertension -- Amlodipine increased to 5 mg p.o. daily Coreg added and dose increased to 6.25 due to tachycardia. 8) Hyperlipidemia on statin Rx Male to female transgender person, --patient transdermal estrogen resumed at the [facility] -- Hold estrogen per neurology service history IVDU prediabetes, hemoglobin A1c of 5.8 hemoglobin A1c of 5.8 last April 2022 ongoing tobacco abuse hx HCV unknown status DVT prophylaxis per Lovenox subcu Full code Disposition Mother said she is not sure if pt will be able to come home because pt is always fighting with the dad Admission and Anticipated Discharge Date Admission Date: May 15, 2022 Subjective Pt was seen and examined at bedside Sitting in bed with no acute distress with 1 to 1 observation Pt said that she feels much better She denies any suicidal thought I spoke to her mother over the phone, provided with update and answered all her questions Mother said that pt and dad have been fighting. She said police was called about 8 times already because they get very physical She said that she is not sure if pt will be able to come home because she does not think her or dad will allow her to come to the house Denies any chest pain, palpitation, dizziness and SOB Review of Systems Review of Systems: All systems reviewed & are unremarkable except as noted in Subjective Physical Exam Physical Exam: General- No acute distress Head- atraumatic Eyes- PERRL, EOMI, ENT- oropharynx clear Neck- supple, no JVD Lungs- clear to auscultation Heart- regular rhythm; no murmur Abdomen- normal bowel sounds, soft, nontender Extremities- no calf tenderness Neuro- alert, oriented x 3; PERRL, EOMI; no facial palsy; no dysarthria Skin- warm & dry Results & Data Results & Data ([facility]) Vital Signs (Past 12 Hours) Vital Signs Temp Pulse Pulse Pulse Resp BP BP 05/26/22 16:00 98 H 05/26/22 16:12 36.8 C 86 20 143/96 H 05/26/22 11:24 36.7 C 88 17 113/76 05/26/22 08:00 93 H 05/26/22 07:14 36.7 C 97 H 18 140/93 Pulse Ox O2 Del Method 05/26/22 16:00 05/26/22 16:12 96 Room Air 05/26/22 11:24 94 Room Air 05/26/22 08:00 05/26/22 07:14 95 Room Air
[2022-05-26] MEDS: QUEtiapine FUMARATE 300 MG TABLET PO SCH (22:58)
[2022-05-26] MEDS: ATORVASTATIN 20 MG TAB PO SCH (22:58)
--- NOTE | 2022-05-27 08:24 | Communication Note ---
Date of Service: May 27, 2022 Georgina remains psychiatrically stable for discharge. Per case management and PT/OT evaluations patient no longer meets criteria for acute rehab for post- stroke. Plan per discussion with hospitalist is discharge to home in [place] and follow-up there with local providers. Case management and primary team to coordinate discharge and transport home. Would discharge on current psychiatric medications: seroquel, cogentin, and ativan (would give script to allow for 1mg BID prn for anxiety/insomnia). After discharge: Recommend repeat fasting glucose, HbA1c and fasting lipid profile every 12 weeks and then annually. If symptoms arise recommend checking BP, EKG, prolactin level as clinically indicated or relevant.
[2022-05-27] MEDS: SPIRONOLACTONE 25 MG TAB PO SCH (08:33)
[2022-05-27] MEDS: ENOXAPARIN INJ 40 MG/0.4 ML SYR SQ SCH (08:33)
[2022-05-27] MEDS: ASPIRIN 81 MG ECTAB PO SCH (08:33)
[2022-05-27] MEDS: LINACLOTIDE 145 MCG CAPSULE PO SCH (08:33)
[2022-05-27] MEDS: LORATADINE 10 MG TAB PO SCH (08:33)
[2022-05-27] MEDS: amLODIPine BESYLATE 5 MG TAB PO SCH (08:33)
[2022-05-27] MEDS: MUPIROCIN 2% OINT 22 GM TUBE TOP SCH ×2 (08:34→21:17)
[2022-05-27] MEDS: carvediloL 6.25 MG TAB PO SCH ×2 (08:34→21:08)
[2022-05-27] MEDS: BENZTROPINE MESYLATE 1 MG TAB PO SCH ×2 (08:34→21:08)
[2022-05-27] MEDS: HYDROCORTISONE 1% CRM 30 GM TUBE EXT SCH ×3 (08:34→21:17)
[2022-05-27] MEDS: LORazepam 1 MG TAB PO PRN ×2 (08:37→15:34)
--- NOTE | 2022-05-27 20:38 | Hospitalist Progress Note ---
Date of Service May 27, 2022 Assessment & Plan (1) Encephalopathy: Plan: Possible metabolic encephalopathy secondary to hyponatremia, psych meds? Recent acute CVA, left MCA (April 2022) History of recurrent stroke History of schizoaffective disorder/anxiety/mood disorder, unknown status Patient brought into the ER from the [facility], for worsening confusion at the [facility] 1) Metabolic encephalopathy, resolved 2) Hx of Recurrent Stroke CT head on admission On 05/14: 1. Acute infarct of the left temporal parietal lobe. 2. Chronic left occipital infarct. 3. No acute intracranial hemorrhage or midline shift. Repeat CT scan on 05/16 and 05/21 showed no acute changes. Urine drug screen:Marijuana TEEno cardiac source of emboli identified. No significant atheromatous disease in proximal ascending aorta, aortic arch and descending thoracic aorta Telemetry shows sinus tachycardia; no arrhythmia noted since admission. Plan: Continue on aspirin 81 mg and Lipitor at bedtime for secondary stroke prevention as per neurology. Estrogen replacement therapy stopped due to increase the risk of ischemic cerebrovascular accident. Hypercoagulable work-up sent; to follow-up in neurology clinic. 3) Schizoaffective disorder: Suicidal ideation Was admitted to [facility] prior to admission given her psychiatric history. denies any suicidal thought Continue with 1-on-1 due to 302 but no longer with SI. One to one discontinued today as per psych Ativan p.o. 3 times daily as needed for agitation/anxiety. For behavior emergency; Haldol 5 mg, Benadryl 50 mg and Ativan 2 mg IM. Seroquel, cogentin, and ativan 1mg BID prn for anxiety/insomnia). HbA1c and fasting lipid profile every 12 weeks and then annually. Ok from psych standpoint to discharge home stable 4) Urinary Retention Trial of void done on 05/18; successful. Urine analysis - no infection 5) Mild hyponatremia Improved from 130, to 137 with IV fluids 6) Scabies infestation Pruritic rash involving patient's extremities and trunk Resolved off isolation 7) Hypertension -- Amlodipine increased to 5 mg p.o. daily Coreg added and dose increased to 6.25 due to tachycardia. 8) Hyperlipidemia on statin Rx Male to female transgender person, --patient transdermal estrogen resumed at the [facility] -- Hold estrogen per neurology service history IVDU prediabetes, hemoglobin A1c of 5.8 hemoglobin A1c of 5.8 last April 2022 Counseling on tobacco cessation hx HCV unknown status DVT prophylaxis per Lovenox subcu Full code Disposition Plan to discharge tomorrow Admission and Anticipated Discharge Date Admission Date: May 15, 2022 Subjective Pt was seen and examined at bedside. Lying in bed with no acute distress Pt said that she has a good night. senior care manager spoke to mother Mother said pt can stay with her for now until they find a place for the patient to stay Case management will get patient bus ticket and her mother will come to get her at the bus station Denies any chest pain, palpitation, dizziness and SOB Review of Systems Review of Systems: All systems reviewed & are unremarkable except as noted in Subjective Physical Exam Physical Exam: General- No acute distress Head- atraumatic Eyes- PERRL, EOMI, ENT- oropharynx clear Neck- supple, no JVD Lungs- clear to auscultation Heart- regular rhythm; no murmur Abdomen- normal bowel sounds, soft, nontender Extremities- no calf tenderness Neuro- alert, oriented x 3; PERRL, EOMI; no facial palsy; no dysarthria Skin- warm & dry Results & Data Results & Data ([facility]) Vital Signs (Past 12 Hours) Vital Signs Temp Pulse Pulse Pulse Resp BP BP 05/27/22 19:48 36.5 C 95 H 18 109/71 05/27/22 15:59 98 H 05/27/22 15:19 36.8 C 91 H 18 133/91 05/27/22 11:22 36.6 C 83 18 130/70 05/27/22 10:40 Pulse Ox O2 Del Method 05/27/22 19:48 98 Room Air 05/27/22 15:59 05/27/22 15:19 97 Room Air 05/27/22 11:22 97 Room Air 05/27/22 10:40 Room Air
[2022-05-27] MEDS: ATORVASTATIN 20 MG TAB PO SCH (21:08)
[2022-05-27] MEDS: QUEtiapine FUMARATE 300 MG TABLET PO SCH (21:38)
[2022-05-28] MEDS: BENZTROPINE MESYLATE 1 MG TAB PO SCH (07:02)
[2022-05-28] MEDS: ASPIRIN 81 MG ECTAB PO SCH (07:02)
[2022-05-28] MEDS: LINACLOTIDE 145 MCG CAPSULE PO SCH (07:03)
[2022-05-28] MEDS: LORATADINE 10 MG TAB PO SCH (07:03)
[2022-05-28] MEDS: HYDROCORTISONE 1% CRM 30 GM TUBE EXT SCH (07:03)
[2022-05-28] MEDS: MUPIROCIN 2% OINT 22 GM TUBE TOP SCH (07:03)
[2022-05-28] MEDS: carvediloL 6.25 MG TAB PO SCH (07:03)
[2022-05-28] MEDS: SPIRONOLACTONE 25 MG TAB PO SCH (07:04)
[2022-05-28] MEDS: amLODIPine BESYLATE 5 MG TAB PO SCH (07:04)
[2022-05-28] MEDS: ENOXAPARIN INJ 40 MG/0.4 ML SYR SQ SCH (07:04)
[2022-05-28] MEDS: LORazepam 1 MG TAB PO PRN (07:05)
--- NOTE | 2022-05-28 07:57 | Discharge Summary ---
Date of Service May 28, 2022 Admission HPI Per Admitting Provider History obtained from patient, [facility] staff , and records. Medical history significant for recurrent ischemic CVA (04/2022), hx ICH (03/2022 imaging), hypertension, hyperlipidemia, HCV, schizoaffective disorder, anxiety/mood disorder, gender dysphoria (male to female transgender person), history IVDU, VENKATESH, prediabetes, ongoing tobacco abuse. Patient confined at [facility] last April 29, 2022 for left MCA stroke on MRI presenting as dysarthria, receptive and expressive aphasia. Patient had to be intubated to facilitate MRI as per note. Patient signed out AGAINST MEDICAL ADVICE today after admission but subsequently readmitted after being brought back to the ER by law enforcement with 302 petition due to patient suicidality. Neurology recommended aspirin and statin Rx for secondary stroke prevention. Hyper coag work-up and GABY recommended for recurrent stroke work-up. Patient's transdermal estrogen to be discontinued temporarily as per recommendations. Amlodipine added to patient's spironolactone later on for BP control. Patient with periods of aggression and agitation during confinement. Patient unable to hold rational conversation as per documentation. Patient subsequently cleared for transfer to psychiatric facility. Patient not on suicidal precautions as a voluntary admission (201) upon admission at the local [facility] last May 10, 2022. Patient noted to have a pruritic rash on both elbows on admission as per staff account. Patient started on topical steroids. Yesterday, patient noted by staff to be more confused than usual. Patient unable to answer questions regarding chest pain, shortness of breath, headache, abdominal pain symptoms. Patient sent to ER for evaluation. Medical History as above Surgical History : Could not be obtained Family History : Stroke Personal/Social history : 1/4 pack daily, Occasional EtOH intake Admission Exam Per Admitting Provider Chief Complaint: Confusion as per records Primary Care Provider: NO PCP History obtained from patient, [facility] staff , and records. Medical history significant for recurrent ischemic CVA (04/2022), hx ICH (03/2022 imaging), hypertension, hyperlipidemia, HCV, schizoaffective disorder, anxiety/mood disorder, gender dysphoria (male to female transgender person), history IVDU, VENKATESH, prediabetes, ongoing tobacco abuse. Patient confined at [facility] last April 29, 2022 for left MCA stroke on MRI presenting as dysarthria, receptive and expressive aphasia. Patient had to be intubated to facilitate MRI as per note. Patient signed out AGAINST MEDICAL ADVICE today after admission but subsequently readmitted after being brought back to the ER by law enforcement with 302 petition due to patient suicidality. Neurology recommended aspirin and statin Rx for secondary stroke prevention. Hyper coag work-up and GABY recommended for recurrent stroke work-up. Patient's transdermal estrogen to be discontinued temporarily as per recommendations. Amlodipine added to patient's spironolactone later on for BP control. Patient with periods of aggression and agitation during confinement. Patient unable to hold rational conversation as per documentation. Patient subsequently cleared for transfer to psychiatric facility. Patient not on suicidal precautions as a voluntary admission (201) upon admission at the local [facility] last May 10, 2022. Patient noted to have a pruritic rash on both elbows on admission as per staff account. Patient started on topical steroids. Yesterday, patient noted by staff to be more confused than usual. Patient unable to answer questions regarding chest pain, shortness of breath, headache, abdominal pain symptoms. Patient sent to ER for evaluation. Principal Diagnosis Encephalopathy: History of Recurrent Stroke Schizoaffective disorder: Suicidal ideation Urinary Retention Mild hyponatremia Scabies infestation Hypertension Hyperlipidemia history IVDU Discharge Exam General- No acute distress Head- atraumatic Eyes- PERRL, EOMI, ENT- oropharynx clear Neck- supple, no JVD Lungs- clear to auscultation Heart- regular rhythm; no murmur Abdomen- normal bowel sounds, soft, nontender Extremities- no calf tenderness Neuro- alert, oriented x 3; PERRL, EOMI; no facial palsy; no dysarthria Skin- warm & dry Discharge Data Allergies Allergy/AdvReac Type Severity Reaction Status Date / Time cat dander Allergy Unknown ON MED LIST Verified 05/15/22 00:46 pollen extracts Allergy Unknown ON MED LIST Verified 05/15/22 00:46 Consultations 05/15/22 02:19 ED Decision to Admit Stat 05/15/22 07:42 Consult Neurology Routine 05/15/22 07:52 Consult Psychiatry Routine 05/15/22 16:40 HIM [Consult Health Information Management] Routine 05/16/22 07:25 Consult Cardiology Routine 05/16/22 09:56 Consult Anesthesiology Routine Procedures Performed Operation Date: 05/18/22 08:00 Actual Procedures p Echo Transesophageal - DO jude Miguel Echo Doppler Complete - DO jude Miguel Echo Color Flow - Todd Bueno DO Ordered Studies 05/14/22 23:54 CT head/brain wo con Urgent 05/16/22 07:23 CT head/brain wo con Routine 05/21/22 03:34 CT head/brain wo con Urgent Laboratory Results WBC 6.27 K/ul (4.8-10.8) 05/25/22 06:34 RBC 4.46 M/uL (4.63-6.08) L 05/25/22 06:34 Hgb 14.5 g/dl (14.0-18.0) 05/25/22 06:34 Hct 41.8 % (40.1-51.0) 05/25/22 06:34 MCV 93.7 fL (80.0-100.0) 05/25/22 06:34 MCH 32.5 pg (25.0-34.0) 05/25/22 06:34 MCHC 34.7 g/dL (32.0-36.0) 05/25/22 06:34 RDW Std Deviation 41.3 fL (36.4-46.3) 05/25/22 06:34 RDW Coeff of [place] 12.0 % (11.5-14.5) 05/25/22 06:34 Plt Count 135 K/uL (130-400) 05/25/22 06:34 MPV 10.9 fL (9.4-12.4) 05/25/22 06:34 Immature Gran % (Auto) 0.5 % 05/25/22 06:34 Neut % (Auto) 44.1 % 05/25/22 06:34 Lymph % (Auto) 39.1 % 05/25/22 06:34 [place] % (Auto) 11.3 % 05/25/22 06:34 Eos % (Auto) 4.0 % 05/25/22 06:34 Baso % (Auto) 1.0 % 05/25/22 06:34 Neut # (Auto) 2.77 K/uL (1.4-6.5) 05/25/22 06:34 Lymph # (Auto) 2.45 K/uL (1.2-3.4) 05/25/22 06:34 [place] # (Auto) 0.71 K/uL (0.24-0.82) 05/25/22 06:34 Eos # (Auto) 0.25 K/uL (0-0.50) 05/25/22 06:34 Baso # (Auto) 0.06 K/uL (0-0.2) 05/25/22 06:34 Immature Gran # (Auto) 0.03 K/uL (0.00-0.02) H 05/25/22 06:34 Polychromasia 1+ 05/19/22 05:42 ESR 11 mm/hr (0-15) 05/21/22 05:54 PT 11.7 Seconds (9.0-12.0) 05/15/22 02:23 INR 1.1 (0.9-1.1) 05/15/22 02:23 APTT 28.3 Seconds (21.0-31.0) 05/15/22 02:23 PTT Ratio 1.0 05/15/22 02:23 LA PTT Screen 40 sec (<=40) 05/16/22 08:46 Protein C Activity 99 % normal (70-180) 05/16/22 08:46 Protein S Activity 136 % normal (70-150) 05/16/22 08:46 Antithrombin III Activ 92 % normal (80-135) 05/16/22 08:46 Factor V Leiden Mutat NEGATIVE 05/16/22 08:46 Factor V Leiden Interp See Below 05/16/22 08:46 Sodium 137 mmol/L (136-145) 05/25/22 06:34 Potassium 3.8 mmol/L (3.5-5.1) 05/25/22 06:34 Chloride 108 mmol/L (98-107) H 05/25/22 06:34 Carbon Dioxide 24 mmol/L (21-32) 05/25/22 06:34 Anion Gap 5 (3-11) 05/25/22 06:34 BUN 12 mg/dl (6-23) 05/25/22 06:34 Creatinine 0.72 mg/dl (0.6-1.4) 05/25/22 06:34 Est Cr Clr Drug Dosing 172.0 ml/min 05/25/22 06:34 Est GFR ( Amer) 130.6 ml/min 05/25/22 06:34 Est GFR (Non-Af Amer) 112.7 ml/min 05/25/22 06:34 BUN/Creatinine Ratio 16.7 (10-20) 05/25/22 06:34 Glucose 113 mg/dl (70-99(Fasting)) H 05/25/22 06:34 Calcium 9.1 mg/dl (8.5-10.1) 05/25/22 06:34 Magnesium 2.1 mg/dl (1.7-2.4) 05/15/22 01:21 Total Bilirubin 1.1 mg/dl (0.2-1.0) H 05/15/22 01:21 AST 27 U/L (13-39) 05/15/22 01:21 ALT 41 U/L (7-52) 05/15/22 01:21 Alkaline Phosphatase 65 U/L (34-104) 05/15/22 01:21 Ammonia 26.0 umol/L (18-72) 05/15/22 04:02 Troponin I High Sens 3.8 pg/ml (0-20) 05/15/22 01:21 Total Protein 7.2 gm/dl (6.0-8.3) 05/15/22 01:21 Albumin 4.4 gm/dl (3.4-5.0) 05/15/22 01:21 Globulin 2.8 gm/dl (2.5-4.0) 05/15/22 01:21 Albumin/Globulin Ratio 1.6 (0.9-2) 05/15/22 01:21 Triglycerides 77 mg/dl (0-150) 05/19/22 05:42 Cholesterol 105 mg/dl (0-200) 05/19/22 05:42 LDL Cholesterol, Calc 58 mg/dl 05/19/22 05:42 VLDL Cholesterol, Calc 15 mg/dl (0-30) 05/19/22 05:42 HDL Cholesterol 32 mg/dl 05/19/22 05:42 Cholesterol/HDL Ratio 3.3 (0-5) 05/19/22 05:42 Homocysteine 13.0 umol/L (<11.4) H 05/16/22 08:46 TSH 0.858 uIu/ml (0.300-4.500) 05/15/22 04:02 Urine Color Yellow 05/20/22 20: Urine Appearance Clear (Clear) 05/20/22 20: Urine pH 6.5 (4.5-7.5) 05/20/22 20: Ur Specific [place] 1.013 (1.000-1.030) 05/20/22 20: Urine Protein Negative (Negative) 05/20/22 20: Urine Glucose (UA) Negative (Negative) 05/20/22 20: Urine Ketones Negative (Negative) 05/20/22 20: Urine Blood Negative (Negative) 05/20/22 20: Urine Nitrite Negative (Negative) 05/20/22 20: Urine Bilirubin Negative (Negative) 05/20/22 20: Urine Urobilinogen Negative (Negative) 05/20/22 20: Ur Leukocyte Esterase Negative (Negative) 05/20/22 20: Urine Opiates Screen Neg (Neg) 05/15/22 01:40 Ur Methadone, Qual Neg (Neg) 05/15/22 01:40 Urine Barbiturates Neg (Neg) 05/15/22 01:40 Ur Phencyclidine (PCP) Neg (Neg) 05/15/22 01:40 U Amphetamin/Meth Scrn Neg (Neg) 05/15/22 01:40 MDMA (Ecstasy) Screen Neg (Neg) 05/15/22 01:40 U Benzodiazepines Scrn Neg (Neg) 05/15/22 01:40 Ur Cocaine Metabolite Neg (Neg) 05/15/22 01:40 U Marijuana (THC) Screen Pos (Neg) H 05/15/22 01:40 U Marijuana THC Carboxy 32 ng/mL (<5) H 05/15/22 01:40 Drug Screen Comment SEE NOTE 05/15/22 01:40 Beta-2-GPI IgG Ab <2.0 U/mL (<20.0) 05/16/22 08:46 Beta-2-GPI IgM Ab <2.0 U/mL (<20.0) 05/16/22 08:46 Anti-Cardiolipin IgG Ab <2.0 GPL-U/mL 05/16/22 08:46 Anti-Cardiolipin IgM Ab <2.0 MPL-U/mL 05/16/22 08:46 SARS-CoV-2, RNA, NAAT NEGATIVE (NEGATIVE) 05/15/22 00:35 Prothrombin Gene Mutate NEGATIVE 05/16/22 08:46 Prothromb Gene Comment See Below 05/16/22 08:46 Impressions Chest X-Ray 05/15/22 02:27 XR chest 1V portable CLINICAL HISTORY: hyponatremia. COMPARISON STUDY: No previous studies for comparison. FINDINGS: Patient is mildly rotated. This likely accounts for slight asymmetric right lung opacity. Lung volumes are normal. Lungs are clear. No pulmonary nodules are noted although sensitivity is diminished given radiographic technique. There is no pneumothorax or pleural effusion. Cardiac size is normal. Mediastinal contours are normal. There is no evidence for pulmonary edema. IMPRESSION: No acute cardiopulmonary findings. ACT 112: Negative or not required by law. Electronically signed by: Jamie Jc M.D. 05/15/2022 6:[address] 05/21/22 03:[address] DOSE: 614.27 mGy.cm HISTORY: severe headache. recent stroke. TECHNIQUE: Multiaxial CT images of the head were performed without the use of intravenous contrast. Automated exposure control was utilized for this study. A dose lowering technique was utilized adhering to the principles of ALARA. Comparison: Head CT 05/16/2022. Findings: The paranasal sinuses and mastoid air cells are clear. The ventricles and sulci are within normal limits. There is an old left [employer] territory infarct, unchanged. Focal area of hypodensity within the left temporoparietal lobe again noted consistent with an acute to subacute MCA territory infarct. This is similar to the prior study. No evidence for hemorrhagic transformation or midline shift. Impression: 1. Redemonstration of the left temporoparietal lobe acute to subacute infarct. No evidence for hemorrhagic transformation. 2. Old left [employer] territory infarct again noted. ACT 112: Negative or not required by law. Electronically signed by: Jones Vazquez M.D. 05/21/2022 7:07 AM Hospital Course (1) Encephalopathy: Possible metabolic encephalopathy secondary to hyponatremia, psych meds? Recent acute CVA, left MCA (April 2022) History of recurrent stroke History of schizoaffective disorder/anxiety/mood disorder, unknown status Patient brought into the ER from the [facility], for worsening confusion at the [facility] 1) Metabolic encephalopathy, resolved 2) Hx of Recurrent Stroke CT head on admission On 05/14: 1. Acute infarct of the left temporal parietal lobe. 2. Chronic left occipital infarct. 3. No acute intracranial hemorrhage or midline shift. Repeat CT scan on 05/16 and 05/21 showed no acute changes. Urine drug screen:Marijuana TEEno cardiac source of emboli identified. No significant atheromatous disease in proximal ascending aorta, aortic arch and descending thoracic aorta Telemetry shows sinus tachycardia; no arrhythmia noted since admission. Plan: Continue on aspirin 81 mg and Lipitor at bedtime for secondary stroke prevention as per neurology. Estrogen replacement therapy stopped due to increase the risk of ischemic cerebrovascular accident. Hypercoagulable work-up sent; to follow-up in neurology clinic. - Follow up with neurology in 2 to 4 weeks - You will need to arrange for outpatient zio patch with cardiology 3) Schizoaffective disorder: Suicidal ideation Was admitted to [facility] prior to admission given her psychiatric history. denies any suicidal thought Continue with 1-on-1 due to 302 but no longer with SI. One to one discontinued today as per psych Ativan p.o. 3 times daily as needed for agitation/anxiety. For behavior emergency; Haldol 5 mg, Benadryl 50 mg and Ativan 2 mg IM. Seroquel, cogentin, and ativan 1mg BID prn for anxiety/insomnia). HbA1c and fasting lipid profile every 12 weeks and then annually. Ok from psych standpoint to discharge home stable 4) Urinary Retention Trial of void done on 05/18; successful. Urine analysis - no infection 5) Mild hyponatremia Improved from 130, to 137 with IV fluids 6) Scabies infestation Pruritic rash involving patient's extremities and trunk Resolved off isolation 7) Hypertension -- Amlodipine increased to 5 mg p.o. daily Coreg added and dose increased to 6.25 due to tachycardia. 8) Hyperlipidemia on statin Rx Male to female transgender person, --patient transdermal estrogen resumed at the [facility] -- Hold estrogen per neurology service history IVDU prediabetes, hemoglobin A1c of 5.8 hemoglobin A1c of 5.8 last April 2022 Counseling on tobacco cessation hx HCV unknown status DVT prophylaxis per Lovenox subcu Full code Disposition Plan to discharge today Bus ticket provided and her mother will pick her at the bus station Total Time Total Time Spent Total Time Spent (In Minutes): 35 minutes Discharge Plan Discharge Items Patient Disposition: Home - Self-Care Reason For Visit: AMS Discharge Diagnosis: Encephalopathy: History of Recurrent Stroke Schizoaffective disorder: Suicidal ideation Urinary Retention Mild hyponatremia Scabies infestation Hypertension Hyperlipidemia history IVDU Activity: Resume your previous activity Non-emergency contact: Primary Care Provider, Ski Patroller, Neurologist and Psychiatrist Call non-emergency contact if: you have any medication questions and your symptoms worsen Follow-up/Referrals: PCP,NO [Primary Care Provider] - Diet: Heart Healthy Addtl Attending Provider Instructions: Follow up with your primary care provider within 1 week follow up with cardiology in 1 to 2 weeks Follow with your psychiatry provider within 1 week Follow up with neurology in 2 to 4 weeks you will need to get arrange for heart monitor to monitor your heart rhythm. cardiology or your primary provider will arrange for it. Hold estrogen therapy for now Seek urgent medical attention if you develop any suicide thought Continue follow up with speech therapy outpatient Pending Studies at Discharge: No Stand-Alone Forms: My [employer], Smoking Cessation Medications and DC Order Prescriptions: New carvedilol 6.25 mg Tablet 6.25 mg PO BID 30 Days Qty: 60 0RF quetiapine 300 mg Tablet 600 mg PO HS 30 Days Qty: 60 0RF amlodipine [Norvasc] 5 mg Tablet 5 mg PO QAM 30 Days Qty: 30 0RF aspirin 81 mg Tablet,Delayed Release (Dr/Ec) 81 mg PO QAM 30 Days Qty: 30 0RF spironolactone 25 mg Tablet 25 mg PO QAM 30 Days Qty: 30 0RF benztropine 1 mg Tablet 1 mg PO BID 30 Days Qty: 60 0RF lorazepam 1 mg Tablet 1 mg PO BID PRN (Reason: anxiety) Qty: 15 0RF Continued acetaminophen [Tylenol] 325 mg Tablet 650 mg PO Q4H PRN (Reason: Pain) atorvastatin 20 mg Tablet 20 mg PO HS diphenhydramine HCl 50 mg Capsule 50 mg PO Q6H PRN (Reason: Itching) venlafaxine [Effexor XR] 150 mg Capsule,Extended Release 24hr 150 mg PO QAM hydrocortisone 1 % Cream 1 applic TOPICAL TID mupirocin 2 % Ointment 1 applic TOPICAL BID finasteride 1 mg Tablet 1 mg PO DAILY Linzess 290 mcg Capsule 290 mcg PO DAILY Linzess 72 mcg Capsule 72 mcg PO DAILY Rx Instructions: THIS ORDER WRITTEN "GIVE 390 MCG USE 5.41 OF 72 MCG" DO NOT UNDERSTAND THIS ORDER. Discontinued spironolactone 100 mg Tablet 300 mg PO HS estradiol 0.1 mg/24 hr Patch Semiweekly 0.1 mg transdermal 2XWK Rx Instructions: APPLY ON MONDAY & THURSDAYS. quetiapine [Seroquel] 50 mg Tablet 50 mg PO DIRECTED MDD 4 DOSES PRN (Reason: Agitation) Rx Instructions: EVERY 30 MINUTES FOR AGITATION, MAX 4 DOSES. Discharge Orders: Discharge Order (Routine); Ordered 05/28/22 Ordered By: Camacho Kwon Admission Data Admit Date/Time: 05/15/22 08:00 Attending Provider: Camacho Kwon Admit Provider: Stefan Sprague Primary Care Provider: PCP,NO Other Providers: Stefan Sprague ; Jassi Porras ; Chitra Fishman ; Enedina Donahue ; Leila Grimaldo ; Raymond Horan ; Shira Lara ; Karen Mukherjee ; Petra Waters ; Yadira Cao ; Amara Mas ; Rickey Virk ; Quang Spivey ; Raymond Rivera ; Jones Sandhu ; Cinthya Sandhu ; Petr Woodall ; Latoya Roque ; Elroy Mckenzie ; Genaro Patterson ; Casey Turner ; Honorio Rudolph ; Brittany Ibanez ; Lebron Aguilar ; Fely Jhaveri ; Pratibha Aguilar ; Kvng Duncan ; Amy Okeefe ; Armando Vann ; Alissa Richardson ; Iris Lancaster ; Pauline Lares ; Alon Nieto ; Judie Man ; Kayli Sandoval ; Belinda Lei ; Angela Jefferson ; Stefan Jefferson V ; Garrett Barbour ; Karen You ; Tan Salinas ; Cecy Decker ; Stefan Jerome ; Fabian Ibanez ; Tin Wayne ; Mildred Ahumada ; Verito Connor ; Stefan Stiles ; Todd Jason ; Luisito Rudolph ; Lashaun Anthony ; Andrei Rasheed ; Adrianna Riggs ; Hernando Persaud ; Andrei Howard ; Rickey Cho Jr ; Angelia Bishop ; Virginia Owen ; Yael Rivera ; Alon Salamanca ; Yadira Abreu ; Jones [place] ; Quinn Charlton I. ; Chela Arreola ; Layton Pratt Other Interventions: Discharge Summary Assessment (RN) Last Done: 05/28/22 07:11
== END 2022-05-28 08:28 | disposition home or self-care (01) | DRG 91 ==
LOC: EDSEX → EDBD → ED 23:42 → 2E 23:42 → SUATTDRO 05-15 08:00